=== PATIENT | male | born 1985 | race Caucasian/White ===

== ENCOUNTER → 2020-07-12 09:00 | Outpatient (CLI) | payer OTHER, SELFPAY ==
[2020-07-12 13:17] LABS: ALB/GLOB Ratio 0.9 RATIO (0.9-2.4); AST(SGOT) 23 U/L (15-37); Alanine Aminotransfer ALT/SGPT 36 U/L (16-61); Albumin, Serum 3.8 g/dL (3.2-5.0); Alkaline Phosphatase 101 U/L (45-117); Anion Gap 5 (5-15); BUN 19 mg/dL (7-18); Calcium,Total 8.2 mg/dL (8.5-10.1); Chloride 104 mmol/L (98-107); Cholesterol 214 mg/dL (200); Creatinine, Serum 0.95 mg/dL (0.70-1.30); EST Glomerular Filtration Rate 95 mL/min (>60); Est Glom Filt Rate - Afr Amer 115 mL/min (>60); Follicle Stimulating Hormone 4.4 mIU/mL; Globulin 4.1 g/dL (2.2-4.2); Glucose 128 mg/dL (74-106); High Density Lipoprotein 21 mg/dL; Potassium 3.9 mmol/L (3.5-5.1); Prolactin 7.6 ng/mL; Protein, Total 7.9 g/dL (6.4-8.2); Sodium Level 134 mmol/L (136-145); T4 Free Direct 0.96 ng/dL (0.76-1.46); Thyroid Stim Hormone (TSH) 4.01 uIU/mL (0.358-3.74); Triglycerides 1543 mg/dL
== END ==
PROVIDERS: Visit Provider Nurse Practitioner Family
DX: R79.89 Other specified abnormal findings of blood chemistry (principal); R86.1 Abnormal level of hormones in specimens from male genital organs
CPT/HCPCS: 36415; 80053; 80061; 82627; 83001; 84146; 84270; 84439; 84443; 82626

== ENCOUNTER 2021-05-28 03:29 | Emergency (ER) | payer OTHER, SELFPAY ==
[2021-05-28 03:30] VITALS: BP 153/99; PULSE 104; RESP 19; TEMP 37.4; O2SAT 93; BMI 35.6
[2021-05-28 04:03] VITALS: PULSE 120; RESP 16; RESP 18; O2SAT 95
[2021-05-28] MEDS: Albuterol 2.5 MG/3 ML VIAL.NEB. INHALATION (04:03)
[2021-05-28] MEDS: Ipratropium/Albuterol Sulfate 3 ML AMPUL.NEB INHALATION (04:03)
[2021-05-28] MEDS: predniSONE 20 MG Tablet 60 MG PO (04:09)
--- NOTE | 2021-05-28 04:34 | CPS ---
x1 Albuterol given to pt. in ER as well
--- NOTE | 2021-05-28 04:42 | RAD_ITS ---
STUDY: X-RAY CHEST REASON FOR EXAM: Male, 36 years old. Cough TECHNIQUE: Single AP portable view of the chest. COMPARISON: 01/25/2017 FINDINGS: The lungs are clear and expanded. There is no demonstrated pleural abnormality. Normal size heart. Normal mediastinum and ro. Normal visualized pulmonary arteries. Normal visualized aortic arch and descending thoracic aorta. There is no demonstrated abnormality of the visualized soft tissue structures of the upper abdomen. RAD/Chest 1 View (Portable) IMPRESSION: No acute abnormal cardiopulmonary finding. Electronically Signed: Wilberto Kelley MD at 6:00 EST ,
[2021-05-28] MEDS: Albuterol Sulfate 8 gm Inhaler (60 puffs) 2 PUFF INHALATION (04:44)
[2021-05-28 05:32] VITALS: O2SAT 96
[2021-05-28 06:23] VITALS: BP 108/74; O2SAT 95
--- NOTE | 2021-05-28 06:23 | EDS_ITS ---
HPI History of Present Illness Chief Complaint: Shortness of Breath Narrative Narrative: 36-year-old male presenting with shortness of breath and wheezing. Patient has a history of asthma but states he does not take anything for this regularly. Patient states that he has not felt ill. 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 He has not had a fever, chills, body aches. He does not have nausea or vomiting. He denies chest pain. PFSH PFS Medical History Hypertriglyceridemia Home Medications albuterol sulfate [Ventolin HFA] 1 - 2 puff INHALATION Q4H PRN PRN #1 inhaler 01/25/17 [Rx Last Taken Unknown] duloxetine 60 mg capsule,delayed release capsule PO 08/02/20 [History Last Taken Unknown] lisinopril 5 mg PO DAILY 05/28/21 [History Last Taken Unknown] prednisone 50 mg PO DAILY 5 Days #25 tab 05/28/21 [Rx Last Taken Unknown] Allergy/AdvReac Type Severity Reaction Status Date / Time acetaminophen [From Vicodin] AdvReac Nausea Verified 05/28/21 03:35 hydrocodone bitartrate AdvReac Nausea Verified 05/28/21 03:35 [From Vicodin] Family History Other Diabetes Mixed hyperlipidemia Social History adopted: No household members: spouse and children number of children: 3 current occupational status: employed sexually active: Yes Smoking Status: Never smoker Smokeless tobacco user: other ROS ROS ED Constitutional Constitutional ED: Denies chills or fever(s) ENT ENT ED: Reports rhinorrhea Cardiovascular Cardiovascular: Denies chest pain or palpitations Respiratory/Chest Respiratory/Chest: Reports cough and dyspnea Gastrointestinal Gastrointestinal: Denies abdominal pain or nausea Genitourinary Genitourinary ED: Denies dysuria or hematuria Musculoskeletal Musculoskeletal: Denies myalgias Integumentary Denies Abrasions or rash Neurologic Neurologic: Denies headache(s) or weakness Psychiatric Psychiatric: Denies anxiety or depression EXAM Physical Exam Const Vital Signs: 05/28/21 03:30 05/28/21 03:37 05/28/21 04:03 Temperature 99.4 F H Temperature Source Temporal Pulse Rate 104 H 120 H Respiratory Rate 19 H 18 Respiratory Effort Normal Short of Breath Normal Short of Breath Respiratory Depth Normal Normal Respiratory Pattern Normal Normal Blood Pressure 153/99 H Blood Pressure Mean 117 Pulse Ox 93 95 Oxygen Delivery Method Room Air Room Air 05/28/21 05:32 Temperature Temperature Source Pulse Rate Respiratory Rate Respiratory Effort Respiratory Depth Respiratory Pattern Blood Pressure Blood Pressure Mean Pulse Ox 96 Oxygen Delivery Method Room Air Positive well nourished General Appearance ED: NAD; Negative for pallor HEENT Reports moist mucous membranes atraumatic Eyes PERRL and EOMs intact bilaterally Resp normal respiratory effort and clear to auscultation bilaterally Cardio regular rate and regular rhythm Neuro oriented x3 and CN's II-XII intact bilaterally Sensorium / Orientation: alert Motor Exam: strength 5/5 throughout Psych mental status grossly normal Thought Process: normal thought process Skin General Skin Exam: Negative for jaundice or pallor MDM MDM MDM Narrative Medical decision making narrative: 36-year-old male presenting with asthma exacerbation. He does not have any viral symptoms. I obtained a chest x-ray which on my interpretation shows no acute cardiopulmonary process. Patient given 60 mg of prednisone and breathing treatments and feels very much improved as if he is opened up. His pulse ox was at 93 and is now 95. Patient was given a prednisone burst and a albuterol inhaler. He is to follow-up outpatient with his PCP to ensure resolution. Impression: 1. Asthma exacerbation Radiography Diagnostic Testing: Clinical Impression(s) from Imaging Studies Chest X-Ray 05/28/21 04:42 IMPRESSION: No acute abnormal cardiopulmonary finding. Electronically Signed: Wilberto Kelley MD at 6:00 EST , Discharge Plan Triage Chief Complaint: Shortness of Breath ED Provider: Otto Wisdom Dx/Rx/DC Orders Instructions: ED Asthma, Acute (Adult) Prescriptions: New prednisone 10 mg tablet 50 mg PO DAILY 5 Days Qty: 25 RF: 0 No Action duloxetine 60 mg capsule,delayed release(DR/EC) PO RF: 0 albuterol sulfate [Ventolin HFA] 1 INHALER inhaler 1 - 2 puff inhalation Q4H PRN PRN (Reason: Wheezing) Qty: 1 RF: 0 lisinopril 5 mg Tablet 5 mg PO DAILY RF: 0 Primary Care Provider: Bayron Engel NP Referrals: Bayron Engel NP, [employer] [Primary Care Provider] - Disposition Disposition: Home, Self Care Discharge Date/Time: 05/28/21 06:23
== END 2021-05-28 06:23 | disposition home or self-care (01) ==
PROVIDERS: Emergency Provider Student in an Organized Health Care Education/Training Program; PCP Nurse Practitioner Family; Visit Provider Student in an Organized Health Care Education/Training Program
DX: J45.901 Unspecified asthma with (acute) exacerbation (principal); Z79.899 Other long term (current) drug therapy
CPT/HCPCS: 71045; 94640; 99251; 99283; G0463

== ENCOUNTER 2022-01-25 18:23 | Emergency (ER) | payer OTHER, SELFPAY ==
[2022-01-25 18:24] VITALS: BP 131/100; PULSE 90; RESP 14; TEMP 36.8; O2SAT 95; BMI 33.7
--- NOTE | 2022-01-25 18:34 | EDS_ITS ---
HPI History of Present Illness HPI Narrative: Patient presents with left leg pain that has been getting progressively worse over the last 4 days. Patient states it is constant. Patient describes it as a tightness and throbbing. Patient states it started in the back of his left knee 4 days ago and now it is spread to his lower leg and foot. Patient states nothing makes it better nothing makes it worse. Patient denies any paresthesias or weakness. Patient denies any trauma or injury. Chief Complaint: Lower Extremity Injury Informant: patient Onset/Context/Timing Onset: Days (4) Context: Gradual Onset Timing: Continuous Quality of Pain: Throbbing (And tightness) Location: Left leg Worsened by: Nothing Relieved by: Nothing Associated Symptoms Associated Symptoms: Negative for Parasthesia, Weakness or Loss of Funtion PFSH PFSH Medical History Hypertriglyceridemia Home Medications albuterol sulfate 90 mcg/actuation aerosol inhaler (Ventolin HFA) 1 - 2 puff inhalation Q4H PRN PRN Wheezing ##1 01/25/17 [Rx Last Taken Unknown] duloxetine 60 mg capsule,delayed release capsule PO 08/02/20 [History Last Taken Unknown] lisinopril 5 mg tablet 5 mg PO DAILY 05/28/21 [History Last Taken Unknown] prednisone 10 mg tablet 50 mg PO DAILY 5 days #25 tabs 05/28/21 [Rx Last Taken Unknown] Allergy/AdvReac Type Severity Reaction Status Date / Time acetaminophen [From Vicodin] AdvReac Nausea Verified 01/25/22 18:24 hydrocodone bitartrate AdvReac Nausea Verified 01/25/22 18:24 [From Vicodin] Family History Other Diabetes Mixed hyperlipidemia Social History adopted: No household members: spouse and children number of children: 3 current occupational status: employed sexually active: Yes Smoking Status: Never smoker Smokeless tobacco user: other ROS ROS ED Constitutional Constitutional ED: Denies chills or fever(s) Eyes Eyes: Denies blurry vision or change in vision ENT ENT ED: Denies rhinorrhea or sore throat Cardiovascular Cardiovascular: Denies chest pain or palpitations Respiratory/Chest Respiratory/Chest: Denies cough or dyspnea Gastrointestinal Gastrointestinal: Denies nausea or vomiting Genitourinary Genitourinary ED: Denies dysuria or hematuria Musculoskeletal Musculoskeletal: Denies back pain or neck pain Integumentary Denies abscess or rash Neurologic Neurologic: Denies headache(s) or weakness Allergic/Immunologic Allergic/Immunologic ED: Denies mouth swelling or urticaria EXAM Physical Exam Const Vital Signs: 01/25/22 18:24 Temperature 98.2 F Temperature Source Temporal Pulse Rate 90 Respiratory Rate 14 Blood Pressure 131/100 H Blood Pressure Mean 110 Pulse Ox 95 Oxygen Delivery Method Room Air Positive well nourished and well developed General Appearance ED: well developed and NAD HEENT Reports moist mucous membranes Extremity Extremity Narrative: There is tenderness and mild edema of the left calf. There is no ecchymosis. There is no deformity noted. There are some tenderness in the popliteal fossa. Posterior tibial pulses are equal bilaterally. Sensation was intact to light touch bilaterally in the lower extremities. There is full range of motion of the left lower extremity. Strength is 5/5 bilaterally in the lower extremities. Patient ambulates without difficulty. General Extremety ED: Yes edema; Negative for weight-bearing difficulty General Extremity: edema; Negative for weight-bearing difficulty Neuro oriented x3, CN's II-XII intact bilaterally, moves all extremities and no sensory deficits noted Sensorium / Orientation: alert Motor Exam: strength 5/5 throughout Psych mental status grossly normal Skin no wounds MDM MDM MDM Narrative Medical decision making narrative: Venous duplex of the left lower extremity was obtained. There is no DVT. Patient was advised of his findings. Patient was instructed to keep his leg elevated. Patient was instructed to take Tylenol or ibuprofen as needed for any pain. Patient was instructed to follow-up with his primary care physician in 5 to 7 days. Patient understood and was agreeable with the plan. All questions were answered. Radiography Diagnostic Testing: Clinical Impression(s) from Imaging Studies Venous Duplex 01/25/22 18:48 IMPRESSION: There is no demonstrated deep venous thrombosis. Electronically Signed: Jad Pierson MD at 19:26 EDT , Discharge Plan Triage Chief Complaint: Lower Extremity Injury ED Provider: Ravinder Zaidi Dx/Rx/DC Orders Clinical Impression: Pain in left lower leg Instructions: ED Pain, Acute, Uncertain Cause, ED Muscle Strain, Extremity Prescriptions: No Action duloxetine 60 mg capsule,delayed release(DR/EC) PO albuterol sulfate [Ventolin HFA] 1 INHALER inhaler 1 - 2 puff inhalation Q4H PRN PRN (Reason: Wheezing) Qty: 1 0RF lisinopril 5 mg Tablet 5 mg PO DAILY prednisone 10 mg tablet 50 mg PO DAILY 5 Days Qty: 25 0RF Primary Care Provider: Ivan Saez Referrals: Bayron Engel [employer], [employer] [Non-Staff] - 5-7 Days Disposition Disposition: Home, Self Care
--- NOTE | 2022-01-25 18:48 | US_ITS ---
STUDY: VENOUS DOPPLER ULTRASOUND - LEFT LOWER EXTREMITY REASON FOR EXAM: Male, 36 years old. LEG PAIN AND SWELLING LT CALF PAIN FROM KNEE TO ANKLE TECHNIQUE: Ultrasound evaluation of the deep vein system to include richards-scale imaging and compression was performed. Richards-scale imaging and Doppler sonographic evaluation, including duplex spectral analysis and qualitative color flow sonography, was performed. COMPARISON: None. FINDINGS: Common Femoral Vein: Normal compression, spontaneity and augmentation. Normal color Doppler. Common Femoral Vein/Greater Saphenous Junction: Normal compression, spontaneity and augmentation. Normal color Doppler. Superficial Femoral Proximal: Normal compression, spontaneity and augmentation. Normal color Doppler. Superficial Femoral Middle: Normal compression, spontaneity and augmentation. Normal color Doppler. Superficial Femoral Distal: Normal compression, spontaneity and augmentation. Normal color Doppler. Popliteal Vein: Normal compression, spontaneity and augmentation. Normal color Doppler. Posterior Tibial Vein: Normal compression, spontaneity and augmentation. Normal color Doppler. Peroneal Vein: Normal compression, spontaneity and augmentation. Normal color Doppler. There is no demonstrated deep venous thrombosis. US/Venous Duplex Imag/Limited/Uni IMPRESSION: There is no demonstrated deep venous thrombosis. Electronically Signed: Jad Pierson MD at 19:26 EDT Reading Location ID and State: [facility] / [place] , Service support ,
== END 2022-01-25 20:03 | disposition home or self-care (01) ==
PROVIDERS: Emergency Provider Emergency Medicine; Visit Provider Emergency Medicine
DX: M79.662 Pain in left lower leg (principal)
CPT/HCPCS: 93971; 99282

== ENCOUNTER 2022-05-26 17:38 | Emergency (ER) | payer OTHER, SELFPAY ==
[2022-05-26] VITALS (9 sets, daily range): BP systolic 154–163; BP diastolic 97–101; PULSE 12–117; RESP 11–21; TEMP 36.1; O2SAT 92–95; BMI 35.2
[2022-05-26] MEDS: Albuterol 2.5 MG/3 ML VIAL.NEB. INHALATION ×2 (18:26→20:42)
[2022-05-26] MEDS: Ipratropium/Albuterol Sulfate 3 ML AMPUL.NEB INHALATION ×2 (18:26→20:42)
--- NOTE | 2022-05-26 18:44 | RAD_ITS ---
STUDY: X-RAY CHEST REASON FOR EXAM: Male, 37 years old. Shortness of breath. TECHNIQUE: PA and lateral views of the chest. COMPARISON: May 28, 2021. FINDINGS: The lungs are clear and expanded. There is no demonstrated pleural abnormality. Normal size heart. Normal mediastinum and ro. Normal visualized pulmonary arteries. Normal visualized aortic arch and descending thoracic aorta. Normal visualized thoracic spine. Normal visualized ribs, clavicles, and shoulders. There is no demonstrated abnormality of the visualized soft tissue structures of the upper abdomen. RAD/Chest PA and Lateral IMPRESSION: No acute cardiopulmonary disease or interval change. Electronically Signed: Theo Broderick DO at 19:06 EST ,
--- NOTE | 2022-05-26 18:55 | EKG12_ITS ---
Test Reason : SOB Blood Pressure : / mmHG Vent. Rate : 117 BPM Atrial Rate : 117 BPM P-R Int : 182 ms QRS Dur : 092 ms QT Int : 308 ms P-R-T Axes : 065 070 013 degrees QTc Int : 429 ms Sinus tachycardia T wave abnormality, consider inferior ischemia Abnormal ECG Confirmed by ZANDER KRAMER, BOB ([id number]), electronic news gathering editor KJ STOVER ([id number]) on 05/29/2022 9:25:10 AM Referred By: Confirmed By:BOB FERMIN MD
--- NOTE | 2022-05-26 19:07 | EX.ED.DYSGE1 ---
HPI <AGNIESZKA Sparks - Last Filed: 05/26/22 21:34> History of Present Illness Chief Complaint: Shortness of Breath Narrative Narrative: Patient is a 37-year-old male with history of hypertension, asthma who presents the emergency department with 1 week of shortness of breath. Patient states that it was not getting better, he then went to urgent care and gave him Augmentin. Patient states he been taking it for 2 days and has no relief. Patient has been using his inhaler. Patient denies any fever or chills. Patient states he feels congested in his face as well as having some coughing fits PFSH <AGNIESZKA Sparks - Last Filed: 05/26/22 21:34> [facility] Medical History Hypertriglyceridemia Home Medications albuterol sulfate 90 mcg/actuation aerosol inhaler (Ventolin HFA) 1 - 2 puff inhalation Q4H PRN PRN Wheezing ##1 01/25/17 [Rx Last Taken Unknown] duloxetine 60 mg capsule,delayed release capsule PO 08/02/20 [History Last Taken Unknown] lisinopril 5 mg tablet 5 mg PO DAILY 05/28/21 [History Last Taken Unknown] prednisone 10 mg tablet 50 mg PO DAILY 5 days #25 tabs 05/28/21 [Rx Last Taken Unknown] prednisone 50 mg tablet 50 mg PO DAILY #5 tabs 05/26/22 [Rx Last Taken Unknown] Allergy/AdvReac Type Severity Reaction Status Date / Time acetaminophen [From Vicodin] AdvReac Nausea Verified 05/26/22 17:38 hydrocodone bitartrate AdvReac Nausea Verified 05/26/22 17:38 [From Vicodin] Family History Other Diabetes Mixed hyperlipidemia Social History adopted: No household members: spouse and children number of children: 3 current occupational status: employed sexually active: Yes Smoking Status: Never smoker Smokeless tobacco user: other ROS <AGNIESZKA Sparks - Last Filed: 05/26/22 21:34> ROS ED ROS Narrative Constitutional: Negative for fever, chills, weight loss, weakness Eyes: Negative for vision loss, vision change, double vision ENT: Negative for any sore throat, ear pain, congestion Cardiovascular: Negative for any chest pain. Palpitations tightness Respiratory: Negative for any sputum production, hemoptysis, dyspnea on exertion, orthopnea. Cough, dyspnea Gastrointestinal: Negative for any abdominal pain, nausea, vomiting, diarrhea, constipation, blood in stool, blood in vomit : Negative for any urinary frequency, dysuria, retention, blood in urine Muscle skeletal: Negative for any muscle joint pain, stiffness, myalgias, arthralgias, neck pain, back pain Neurological: Negative for any headache, syncope, numbness or tingling, dizziness Skin: Negative for any rashes, lumps, itching, abrasions, lacerations Psychiatric: Negative for any depression, anxiety, stress, suicidal ideation, homicidal ideation Hematologic: Negative for any easy bruising, excessive bruising, easy bleeding Allergies: Negative for any eczema, hives, rash EXAM <AGNIESZKA Sparks - Last Filed: 05/26/22 21:34> Physical Exam Narrative Exam Narrative: Vital signs reviewed. Patient is tachycardic with a heart rate 120. He is in no obvious respiratory distress. 94 to 95% room air HEET: Head normocephalic atraumatic, TMs clear bilaterally. Posterior pharynx is clear, moist mucous membranes. Nares clear bilaterally. Neck: Supple with no lymphadenopathy or tenderness. No signs of meningismus, negative jolt sign. Cardiac: Tachycardic rate no murmurs gallops or rubs, equal peripheral pulses bilaterally. Respiratory: Lungs clear to auscultation bilaterally. No chest tenderness. Abdomen: Soft, nontender, nondistended. No abdominal bruit or pulsatile masses. No hepatosplenomegaly Extremities: No peripheral edema, no signs of gross trauma or deformity. Active full range of motion of all extremities. Neuro: Cranial nerves II through XII intact, no focal neurological deficits. Skin: Clean dry and intact with no rash, purpura, petechiae, vesicles or pustules. Backs/flank: No CVA tenderness, no midline spinal tenderness, no deformity. Psych: Normal mood and affect. No SI, HI or acute psychosis. Const Vital Signs: 05/26/22 17:39 05/26/22 18:16 05/26/22 18:26 Temperature 96.9 F L Temperature Source Temporal Pulse Rate 114 H 116 H Respiratory Rate 20 H 18 Respiratory Effort Short of Breath Respiratory Depth Normal Respiratory Pattern Normal Blood Pressure 154/98 H Blood Pressure Mean 116 Pulse Ox 92 Oxygen Delivery Method Room Air Room Air 05/26/22 18:45 05/26/22 19:46 05/26/22 19:59 Temperature Temperature Source Pulse Rate 12 L 117 H 114 H Respiratory Rate 19 H 18 11 L Respiratory Effort Respiratory Depth Respiratory Pattern Blood Pressure 163/97 H 162/101 H Blood Pressure Mean 119 110 Pulse Ox 95 95 94 Oxygen Delivery Method Room Air 05/26/22 20:00 05/26/22 20:10 05/26/22 20:20 Temperature Temperature Source Pulse Rate 115 H 117 H 114 H Respiratory Rate 20 H 16 21 H Respiratory Effort Respiratory Depth Respiratory Pattern Blood Pressure Blood Pressure Mean Pulse Ox 93 93 92 Oxygen Delivery Method 05/26/22 20:43 Temperature Temperature Source Pulse Rate 115 H Respiratory Rate 16 Respiratory Effort Respiratory Depth Respiratory Pattern Blood Pressure Blood Pressure Mean Pulse Ox Oxygen Delivery Method <Dr. Cecily Philip MD - Last Filed: 05/26/22 22:09> Physical Exam Const Vital Signs: 05/26/22 17:39 05/26/22 18:16 05/26/22 18:26 Temperature 96.9 F L Temperature Source Temporal Pulse Rate 114 H 116 H Respiratory Rate 20 H 18 Respiratory Effort Short of Breath Respiratory Depth Normal Respiratory Pattern Normal Blood Pressure 154/98 H Blood Pressure Mean 116 Pulse Ox 92 Oxygen Delivery Method Room Air Room Air 05/26/22 18:45 05/26/22 19:46 05/26/22 19:59 Temperature Temperature Source Pulse Rate 12 L 117 H 114 H Respiratory Rate 19 H 18 11 L Respiratory Effort Respiratory Depth Respiratory Pattern Blood Pressure 163/97 H 162/101 H Blood Pressure Mean 119 110 Pulse Ox 95 95 94 Oxygen Delivery Method Room Air 05/26/22 20:00 05/26/22 20:10 05/26/22 20:20 Temperature Temperature Source Pulse Rate 115 H 117 H 114 H Respiratory Rate 20 H 16 21 H Respiratory Effort Respiratory Depth Respiratory Pattern Blood Pressure Blood Pressure Mean Pulse Ox 93 93 92 Oxygen Delivery Method 05/26/22 20:43 Temperature Temperature Source Pulse Rate 115 H Respiratory Rate 16 Respiratory Effort Respiratory Depth Respiratory Pattern Blood Pressure Blood Pressure Mean Pulse Ox Oxygen Delivery Method [facility] <AGNIESZKA Sparks - Last Filed: 05/26/22 21:34> [facility] Lab Data Attestation: I reviewed the patient's lab results. Labs: Laboratory Results - last 24 hr 05/26/22 05/26/22 05/26/22 19:10 19:10 19:10 WBC 13.8 H RBC 5.51 Hgb 15.7 Hct 44.1 MCV 80.0 MCH 28.5 MCHC 35.6 RDW Std Deviation 39.8 RDW Coeff of Jackson 13.6 Plt Count 333 MPV 10.2 Immature Gran % (Auto) 1.200 H Neut % (Auto) 77.2 H Lymph % (Auto) 19.7 Stewart % (Auto) 1.4 Eos % (Auto) 0.1 Baso % (Auto) 0.4 Absolute Neuts (auto) 10.7 H Absolute Lymphs (auto) 2.73 Nucleated RBC % 0 D-Dimer Quant (PE/DVT) 0.53 H* Sodium 135 L Potassium 4.5 Chloride 103 Carbon Dioxide 23.0 Anion Gap 9 BUN 25 H Creatinine 1.15 Estim Creat Clear Calc 86.24 Est GFR (MDRD) Af Amer 91 Est GFR (MDRD) Non-Af 75 BUN/Creatinine Ratio 21.7 H Glucose 218 H Calcium 9.3 Troponin I High Sens 6 TSH 1.17 Radiography Diagnostic Testing: Clinical Impression(s) from Imaging Studies Chest X-Ray 05/26/22 18:44 IMPRESSION: No acute cardiopulmonary disease or interval change. Electronically Signed: Theo Broderick DO at 19:06 EST Reading Location ID and State: [place] / [place] Tel [phone], Service support , Chest CTA 05/26/22 19:33 IMPRESSION: Normal CTA chest examination, without a demonstrated pulmonary embolism or arterial dissection. AIDOC was utilized to assist in identifying pertinent positive findings in this case. Electronically Signed: Theo Broderick DO at 20:18 EST Reading Location ID and State: [place] / [place] Tel [phone], Service support , Treatment and Re-Evaluation Narrative: All radiologic examinations were read, reviewed by the emergency department attending. From these reads, a plan of care will be put in place. Patient appears to be in no respiratory distress. Patient is tachycardic with a heart rate in the 120s, remainder of vital signs are unremarkable. Patient is 93 to 95% on room air. Patient did receive a full respiratory work-up, secondary to the patient's elevated heart rate, family history, patient did receive a D-dimer as well. Patient's chest x-ray showed no acute cardiopulmonary disease. Patient's laboratory values showed a slight elevation in his white blood cells at 13.8, patient's chemistries showed a glucose of 218 which was elevated, patient's TSH within normal limits. Patient's D-dimer was positive. Secondary to the patient's elevated D-dimer, tachycardia, complaints of shortness of breath, I believe it is appropriate to perform a CTA of the chest to rule out any pulmonary embolus. CT of the chest was completed, this showed no acute pulmonary embolism or arterial dissection. There is no evidence of any pneumonia pneumothorax. Patient did receive multiple breathing treatments, he took oral steroids at home. On reassessment, the patient is in no distress. He feels much better. I spoke with the patient regarding his laboratory values as well as hyperglycemia. He will continue to talk to his PCP regarding this, they have been watching this for some time. He will be given 5 days of prednisone, he will continue his antibiotics given to him. He is currently not need any refills on his inhalers. He was given return precaution. I did speak with the patient's who is bedside. They were given discharge instructions. Patient was given return precautions. Stable for discharge. <Dr. Cecily Philip MD - Last Filed: 05/26/22 22:09> [facility] Lab Data Labs: Laboratory Results - last 24 hr 05/26/22 05/26/22 05/26/22 19:10 19:10 19:10 WBC 13.8 H RBC 5.51 Hgb 15.7 Hct 44.1 MCV 80.0 MCH 28.5 MCHC 35.6 RDW Std Deviation 39.8 RDW Coeff of Jackson 13.6 Plt Count 333 MPV 10.2 Immature Gran % (Auto) 1.200 H Neut % (Auto) 77.2 H Lymph % (Auto) 19.7 Stewart % (Auto) 1.4 Eos % (Auto) 0.1 Baso % (Auto) 0.4 Absolute Neuts (auto) 10.7 H Absolute Lymphs (auto) 2.73 Nucleated RBC % 0 D-Dimer Quant (PE/DVT) 0.53 H* Sodium 135 L Potassium 4.5 Chloride 103 Carbon Dioxide 23.0 Anion Gap 9 BUN 25 H Creatinine 1.15 Estim Creat Clear Calc 86.24 Est GFR (MDRD) Af Amer 91 Est GFR (MDRD) Non-Af 75 BUN/Creatinine Ratio 21.7 H Glucose 218 H Calcium 9.3 Troponin I High Sens 6 TSH 1.17 Radiography Diagnostic Testing: Clinical Impression(s) from Imaging Studies Chest X-Ray 05/26/22 18:44 IMPRESSION: No acute cardiopulmonary disease or interval change. Electronically Signed: Theo Broderick DO at 19:06 EST Reading Location ID and State: [place] / [place] Tel [phone], Service support , Chest CTA 05/26/22 19:33 IMPRESSION: Normal CTA chest examination, without a demonstrated pulmonary embolism or arterial dissection. AIDOC was utilized to assist in identifying pertinent positive findings in this case. Electronically Signed: Theo Broderick DO at 20:18 EST Reading Location ID and State: [place] Tel [phone], Service support , Treatment and Re-Evaluation Narrative: All radiologic examinations were read, reviewed by the emergency department attending. From these reads, a plan of care will be put in place. Patient appears to be in no respiratory distress. Patient is tachycardic with a heart rate in the 120s, remainder of vital signs are unremarkable. Patient is 93 to 95% on room air. Patient did receive a full respiratory work-up, secondary to the patient's elevated heart rate, family history, patient did receive a D-dimer as well. Patient's chest x-ray showed no acute cardiopulmonary disease. Patient's laboratory values showed a slight elevation in his white blood cells at 13.8, patient's chemistries showed a glucose of 218 which was elevated, patient's TSH within normal limits. Patient's D-dimer was positive. Secondary to the patient's elevated D-dimer, tachycardia, complaints of shortness of breath, I believe it is appropriate to perform a CTA of the chest to rule out any pulmonary embolus. CT of the chest was completed, this showed no acute pulmonary embolism or arterial dissection. There is no evidence of any pneumonia pneumothorax. Patient did receive multiple breathing treatments, he took oral steroids at home. On reassessment, the patient is in no distress. He feels much better. I spoke with the patient regarding his laboratory values as well as hyperglycemia. He will continue to talk to his PCP regarding this, they have been watching this for some time. He will be given 5 days of prednisone, he will continue his antibiotics given to him. He is currently not need any refills on his inhalers. He was given return precaution. I did speak with the patient's who is bedside. They were given discharge instructions. Patient was given return precautions. Stable for discharge. Patient seen and evaluated with [facility]. I personally interviewed and examined the patient. I was involved in all aspects of patient's orders, interpretation of results, and treatment. Patient presents with cold symptoms and shortness of breath. He has a history of asthma. He states couple days ago he developed what he thought was more of a sinus infection and congestion. He was seen at urgent care 2 days ago and given a prescription for Augmentin. He states he feels that the illness is now settled down into his chest with increased cough and congestion. He intermittently feels like he has wheezing. He has been using his inhaler at home without improvement. Patient sitting upright in bed no acute distress. Speaking full sentences. Head neck examination unremarkable. Heart is tachycardic but regular. Lung sounds are grossly clear with decreased air movement. Abdomen is soft and nontender. Lower extremity semination shows no calf tenderness or edema. Chest x-ray initially obtained and patient treated with aerosols. Chest x-ray per my interpretation reveals no infiltrate or acute abnormality. Patient continued to have tachycardia. In light of this EKG was obtained along with lab work to include D-dimer to rule out PE. CBC reveals a white count of 13.8 with 77% neutrophils. Chemistry studies are unremarkable. Troponin is normal and TSH is normal. D-dimer was slightly elevated at 0.53. CTA of the chest is obtained and reveals no evidence of PE or other acute abnormality. At this time patient's heart rate is around 110. He does feel improved. He will be given additional steroids and he has MDI inhaler to use at home. Return instructions given. Discharge Plan Triage Chief Complaint: Shortness of Breath ED Midlevel Provider: Wilberto Uriostegui ED Provider: Cecily Philip Dx/Rx/DC Orders Clinical Impression: Asthma exacerbation, Upper respiratory tract infection, Hyperglycemia Instructions: ED Asthma, Acute (Adult) Prescriptions: New prednisone 50 mg tablet 50 mg PO DAILY Qty: 5 0RF No Action duloxetine 60 mg capsule,delayed release(DR/EC) PO albuterol sulfate [Ventolin HFA] 1 INHALER inhaler 1 - 2 puff inhalation Q4H PRN PRN (Reason: Wheezing) Qty: 1 0RF lisinopril 5 mg Tablet 5 mg PO DAILY prednisone 10 mg tablet 50 mg PO DAILY 5 Days Qty: 25 0RF Primary Care Provider: Ivan Saez Referrals: Ivan Saez [Primary Care Provider] - Disposition Disposition: Home, Self Care Discharge Date/Time: 05/26/22 21:42
[2022-05-26 19:16] LABS: Absolute Lymphocyte Count 2.73 X10^3/uL (0.83-4.51); Absolute Neutrophil Count 10.7 X10^3/uL (2.0-7.7); Basophil# 0.06 X10^3/uL; Basophil% 0.4 % (0-1); Eosinophil# 0.02 X10^3/uL; Eosinophils% 0.1 % (0-5); Hematocrit 44.1 % (40-54); Hemoglobin 15.7 g/dL (13.0-16.5); Lymphocyte # 2.73 X10^3/ul (0.83-4.51); Lymphocyte % 19.7 % (19-41); Mean Corp Hgb Conc 35.6 g/dL (32-36); Mean Corpuscular Hgb 28.5 pg (27.0-32.0); Mean Platelet Vol. 10.2 fl (6.2-12.0); Monocyte# 0.19 X10^3/uL; Monocyte% 1.4 % (0-10); NRBC Flagged by Analyzer 0 % (0-5); Neutrophil # 10.67 X10^3/uL (2.7-7.7); Neutrophil % 77.2 % (47-70); Platelet Count 333 K/mm3 (150-450); RBC Distribution Width CV 13.6 % (11.6-14.6); RBC Distribution Width SD 39.8 fl (35.1-43.9); Red Blood Count 5.51 M/mm3 (4.6-6.2); White Blood Count 13.8 K/mm3 (4.4-11.0)
[2022-05-26 19:33] LABS: D-Dimer Quantitative (DVT/PE) 0.53 FEU/ug/m (0.27-0.49)
--- NOTE | 2022-05-26 19:33 | CT_ITS ---
STUDY: CTA CHEST REASON FOR EXAM: Male, 37 years old. Elevated d-dimer. Shortness of breath for one week with cold symptoms. History of asthma. RADIATION DOSAGE (If Supplied By Facility): CTDIvol = ( 18.52 ) mGy, DLP = ( 560.28 ) mGycm TECHNIQUE: The examination was performed with the intravenous administration of IV 100mL Isovue-370. Post-processing of the angiographic images was performed, with multiplanar reformation and 3D reconstruction. Individualized dose optimization techniques were used for this CT. COMPARISON: Chest, May 26, 2022. FINDINGS: Normal enhancement of the main pulmonary artery and right and left pulmonary arteries. Normal enhancement of the bilateral peripheral pulmonary arteries. There is no demonstrated pulmonary embolism. Normal thoracic aorta and visualized great vessels. There is no demonstrated aortic dissection. Normal heart and pericardium. Normal mediastinum. Normal hilar regions. Normal visualized trachea and bronchi. The lungs are well expanded. Normal pulmonary parenchyma. Normal pleura. Normal chest wall structures. Normal osseous structures. Normal visualized upper abdomen. CT/CTA Chest W/WO Contrast IMPRESSION: Normal CTA chest examination, without a demonstrated pulmonary embolism or arterial dissection. AIDOC was utilized to assist in identifying pertinent positive findings in this case. Electronically Signed: Theo Broderick DO at 20:18 EST ,
[2022-05-26] MEDS: 0.9% Normal Saline 1,000 ML 150 ML IV (20:27)
[2022-05-26 21:21] LABS: Anion Gap 9 (5-15); BUN 25 mg/dL (7-18); BUN/Creat Ratio 21.7 RATIO (10-20); Calcium,Total 9.3 mg/dL (8.5-10.1); Chloride 103 mmol/L (98-107); Creatinine, Serum 1.15 mg/dL (0.70-1.30); EST Glomerular Filtration Rate 75 mL/min (>60); Est Glom Filt Rate - Afr Amer 91 mL/min (>60); Estimated Creatinine Clearance 86.24 ml/min; Glucose 218 mg/dL (74-106); Potassium 4.5 mmol/L (3.5-5.1); Sodium Level 135 mmol/L (136-145); Thyroid Stim Hormone (TSH) 1.17 uIU/mL (0.358-3.74); Troponin-I HS 6 pg/mL (3.0-78.0)
== END 2022-05-26 21:42 | disposition home or self-care (01) ==
LOC: ED 18:38
PROVIDERS: Emergency Provider Emergency Medicine; Visit Provider Emergency Medicine
DX: J45.901 Unspecified asthma with (acute) exacerbation (principal); J06.9 Acute upper respiratory infection, unspecified; R73.9 Hyperglycemia, unspecified
CPT/HCPCS: 71046; 71275; 80048; 84443; 84484; 85025; 85379; 87428; 93005; 94640; 99284; J7030; Q9967; A4216

== ENCOUNTER 2022-07-03 04:34 | Emergency (ER) | payer OTHER, SELFPAY ==
[2022-07-03 04:36] VITALS: BP 165/101; PULSE 84; RESP 16; TEMP 36.1; O2SAT 96; BMI 36.1
--- NOTE | 2022-07-03 04:57 | EDS_ITS ---
HPI HPI - URI History of Present Illness Chief Complaint: Sore Throat Narrative Narrative: 37-year-old male past medical history of hypertension, has had 3 to 4 days of sore throat. He went to urgent care yesterday, and was diagnosed with strep throat and placed on amoxicillin. This is the first time that he has had strep throat but states that his kids have had it multiple times. He awoke this evening feeling like he could not breathe and had throat fullness. He describes throat pain when he swallows. No recent fevers, but he is taking ibuprofen for the pain. He presents for evaluation of his strep throat. ROS ROS ED ROS Narrative Constitutional: No fever, no chills. HEENT: Positive sore throat. Throat feels yates than normal. Positive pain wi th swallowing. No neck pain. No loss of vision. No rhinorrhea. Cardiovascular: No chest pain. No palpitations. No pedal edema. Respiratory: No cough, positive shortness of breath. Abdominal: No abdominal pain. No nausea. No vomiting. Genitourinary: No dysuria. No hematuria. Musculoskeletal: No myalgias. No arthralgias. Neurologic: No headaches. No dizziness. No lightheadedness. Skin: No rash. No change in color. Psychiatric: No depression. No anxiety. PFSH [facility] Medical History Hypertriglyceridemia Home Medications albuterol sulfate 90 mcg/actuation aerosol inhaler (Ventolin HFA) 1 - 2 puff inhalation Q4H PRN PRN Wheezing ##1 01/25/17 [Rx Last Taken Unknown] duloxetine 60 mg capsule,delayed release 60 capsule PO DAILY 08/02/20 [History Last Taken Unknown] lisinopril 5 mg tablet 10 mg PO DAILY 05/28/21 [History Last Taken Unknown] amoxicillin 500 mg tablet 500 mg PO BID 07/03/22 [History Last Taken Unknown] dexamethasone 4 mg tablet 4 mg PO DAILY #5 tabs 07/03/22 [Rx Last Taken Unknown] Allergy/AdvReac Type Severity Reaction Status Date / Time acetaminophen [From Vicodin] AdvReac Nausea Verified 07/03/22 04:35 hydrocodone bitartrate AdvReac Nausea Verified 07/03/22 04:35 [From Vicodin] Family History Other Diabetes Mixed hyperlipidemia Social History adopted: No household members: spouse and children number of children: 3 current occupational status: employed sexually active: Yes Smoking Status: Never smoker Smokeless tobacco user: other EXAM Physical Exam Narrative Exam Narrative: Afebrile. Vital signs noted. HEENT: Normocephalic. Atraumatic. PERRL, EOMI. Neck soft and supple. No point tenderness or step off. No meningismus. No drooling or trismus. Airway patent. Mild pharyngeal erythema with tonsillar swelling, but tonsils not kissing. No uvular shift. No Jacob angina. Cardiovascular: Regular rate and rhythm. No murmurs, rubs, or gallops appreciated. Respiratory: No tachypnea. Lungs clear to auscultation bilaterally. Gastrointestinal: Abdomen soft, nontender, with normoactive bowel sounds. No rebound or guarding. Neurological: Awake. Alert. Nonfocal, nonlateralizing. Skin: No rash. Normal color. No pallor. Musculoskeletal: No pedal edema. Full range of motion extremities. Const Vital Signs: 07/03/22 04:36 Temperature 96.9 F L Temperature Source Temporal Pulse Rate 84 Respiratory Rate 16 Blood Pressure 165/101 H Blood Pressure Mean 122 Pulse Ox 96 Oxygen Delivery Method Room Air MDM MDM MDM Narrative Medical decision making narrative: Patient's pulse ox is 96% on room air. I am not concerned for retropharyngeal abscess. Currently, I do not feel that any laboratory work is indicated or CT imaging as I do not think that it would change the disposition. He is to continue his amoxicillin. He was given 8 mg of Decadron here in the emergency department, and a prescription written for short burst of 4 mg of Decadron for the next 5 days. I feel he can be discharged safely home with follow-up. He is still able to eat and drink. He will start a soft food diet and drink plenty of oral fluids. I am not concerned for dehydration currently. Return instructions to the emergency department were reviewed. Follow-up with primary care. He was also referred to ENT as needed. Disposition is discharged home in stable condition. I do not feel that he requires observation currently either. Pa tient and are agreeable to the plan. History & Record Review Discussion w/independent historian: Patient and Family Additional record(s) reviewed:: Prior ED visit Discharge Plan Triage Chief Complaint: Sore Throat ED Provider: Sergey Hernadez Dx/Rx/DC Orders Clinical Impression: Strep throat, Odynophagia Instructions: ED Soft Diet, ED Pharyngitis, Strep (Confirmed) Prescriptions: New dexamethasone 4 mg tablet 4 mg PO DAILY Qty: 5 0RF No Action duloxetine 60 mg capsule,delayed release(DR/EC) 60 capsule PO DAILY albuterol sulfate [Ventolin HFA] 1 INHALER inhaler 1 - 2 puff inhalation Q4H PRN PRN (Reason: Wheezing) Qty: 1 0RF lisinopril 5 mg Tablet 10 mg PO DAILY amoxicillin 500 mg tablet 500 mg PO BID Primary Care Provider: Ivan Saez Referrals: Jerry Hines MD [Med Staff - Active Staff] - As Needed Ivan Saez [Primary Care Provider] - 1-2 Days if not improving Disposition Disposition: Home, Self Care
[2022-07-03] MEDS: dexAMETHasone 4 MG Tablet 8 MG PO (05:02)
[2022-07-03 05:03] VITALS: O2SAT 98
== END 2022-07-03 05:03 | disposition home or self-care (01) ==
LOC: ED 05:00
PROVIDERS: Emergency Provider Emergency Medicine; PCP Family Medicine; Visit Provider Emergency Medicine
DX: J02.0 Streptococcal pharyngitis (principal); I10 Essential (primary) hypertension; Z79.899 Other long term (current) drug therapy
CPT/HCPCS: 99283

== ENCOUNTER 2023-01-04 20:40 | Emergency (ER) | payer OTHER, SELFPAY ==
[2023-01-04 20:42] VITALS: BP 157/110; PULSE 107; RESP 18; TEMP 36.6; O2SAT 99; BMI 36.8
--- NOTE | 2023-01-04 20:58 | EX.ED.VIS.HA ---
HPI History of Present Illness Chief Complaint: Headache Detail of Chief Complaint: Headache Informant: patient and spouse/S.O. Narrative Narrative: Patient presents to the emergency room with complaint of a headache that started a week ago. Patient states that he was on vacation in [place] and when he got back he noticed pain in his head and soreness and stiffness in his neck and upper back. He went to the chiropractor and was treated in the neck and back actually feel better. He describes pain in the back of his head mostly on the left side, radiating to the front. He denies photophobia. He denies nausea or vomiting with it. He has been taking ibuprofen and that seems to help it but then it comes right back. Patient also states that has been more short of breath since he has been back as he owns his own business and with activity he gets more winded than he would expect. He denies any chest pain. No history of PE or DVT. No family history of brain tumors or aneurysms. [facility] Medical History Hypertriglyceridemia Home Medications duloxetine 60 mg capsule,delayed release 60 capsule PO DAILY 08/02/20 [History Last Taken Unknown] lisinopril 5 mg tablet 10 mg PO DAILY 05/28/21 [History Last Taken Unknown] Allergy/AdvReac Type Severity Reaction Status Date / Time acetaminophen [From Vicodin] AdvReac Nausea Verified 01/04/23 20:41 hydrocodone bitartrate AdvReac Nausea Verified 01/04/23 20:41 [From Vicodin] Family History Other Diabetes Mixed hyperlipidemia Social History adopted: No household members: spouse and children number of children: 3 current occupational status: employed sexually active: Yes Smoking Status: Never smoker Smokeless tobacco user: other ROS ROS ED Review of Systems ROS Unobtainable: other Constitutional Constitutional ED: Reports lethargy; Denies chills, fever(s), sweats or weight loss Eyes Eyes: Denies blurry vision, change in vision or diplopia ENT ENT ED: Denies rhinorrhea or sore throat Cardiovascular Cardiovascular: Denies chest pain, orthopnea or racing heartbeat Respiratory/Chest Respiratory/Chest: Reports dyspnea and dyspnea on exertion; Denies cough, orthopnea or sputum Gastrointestinal Gastrointestinal: Denies abdominal pain, diarrhea, nausea or vomiting Genitourinary Genitourinary ED: Denies dysuria, hematuria or urinary frequency Musculoskeletal Musculoskeletal: Denies arthralgias, back pain, myalgias or neck pain Integumentary Denies abscess, Abrasions or rash Neurologic Neurologic: Reports headache(s); Denies weakness Psychiatric Psychiatric: Denies anxiety, depression or suicidal thoughts Endocrine Endocrinology: Denies polydipsia, polyphagia or polyuria Hematologic/Lymphatic Hematologic/Lymphatic: Denies easy bleeding, easy bruising or lymphadenopathy Allergic/Immunologic Allergic/Immunologic ED: Denies mouth swelling, tongue swelling or urticaria EXAM Physical Exam Const Vital Signs: 01/04/23 20:42 01/04/23 22:41 01/04/23 23:22 Temperature 97.8 F Temperature Source Temporal Pulse Rate 107 H 101 H 101 H Respiratory Rate 18 16 16 Blood Pressure 157/110 H 125/84 H 123/62 H Blood Pressure Mean 125 97 82 Pulse Ox 99 97 97 Oxygen Delivery Method Room Air Positive well nourished and well developed General Appearance ED: well developed and NAD HEENT Reports TM's clear and moist mucous membranes normocephalic and atraumatic; Negative for trauma or tenderness Tympanic Membrane ED: Yes TM's clear Eyes PERRL and EOMs intact bilaterally General Eye ED: Negative for pale conjunctiva or scleral icterus Neck no lymphadenopathy, supple and no JVD General: Negative for tenderness Chest Wall inspection of chest normal and palpation of chest normal Chest: Negative for tenderness Resp normal respiratory effort and clear to auscultation bilaterally Effort and Inspection: Negative for respiratory distress or pain with movement Auscultation: Negative for rhonchi, wheezes or diminished lung sounds Cardio regular rate, regular rhythm, S1 normal heart sound, S2 normal heart sound and no murmurs Peripheral Pulses: pulses 2+ throughout GI normal to inspection, nondistended, normoactive bowel sounds, soft to palpation, non-tender, non-distended and no masses Back/Spine no CVA tenderness and no thoracic nor lumbar tenderness Extremity normal to inspection General Extremety ED: Negative for edema General Extremity: Negative for edema Neuro oriented x3, CN's II-XII intact bilaterally, no sensory deficits noted and gait normal Sensorium / Orientation: awake, alert, oriented to person, oriented to place and oriented to time Motor Exam: strength 5/5 throughout and strength abnormal Psych mental status grossly normal Skin no rashes or lesions noted and no wounds MDM MDM MDM Narrative Medical decision making narrative: Patient presents with ongoing headache as left-sided for about a week which is atypical and unusual for him. He has had no history of trauma. Patient also complaining of dyspnea after recent travel to [place] and concern for PE. Patient had an IV line established. He had a CTA of the head and neck that was normal without evidence of aneurysm or intracranial hemorrhage. Patient also had a CTA of the chest which was negative for PE or any acute abnormality. Initially attempted to perform D-dimer however lab was unable to run the D-dimer due to the light hemic nature of the blood. CBC with differential showed a white of 10.2 with hemoglobin 15 and platelet count of 313. Chemistries unremarkable. Glucose elevated 195. Patient was medicated with Reglan, Benadryl, Toradol, and a liter normal same fluid bolus and his headache completely resolved. This point he will be discharged to home suspect possibly migraine as the etiology versus tension headache. Advised to follow-up with primary care physician 3 to 5 days. Etiology of dyspnea unclear. He did have a negative COVID and flu test here. Lab Data Attestation: I reviewed the patient's lab results. Labs: Laboratory Results - last 24 hr 01/04/23 21:05 WBC 10.2 RBC 5.05 Hgb 15.0 Hct 41.6 MCV 82.4 MCH 29.7 MCHC 36.1 H RDW Std Deviation 41.1 RDW Coeff of Jackson 14.0 Plt Count 313 MPV 10.7 Immature Gran % (Auto) 0.800 Neut % (Auto) 49.1 Lymph % (Auto) 39.8 Garden % (Auto) 6.3 Eos % (Auto) 3.3 Baso % (Auto) 0.7 Absolute Neuts (auto) 5.0 Absolute Lymphs (auto) 4.05 Nucleated RBC % 0.2 D-Dimer Quant (PE/DVT) Cancelled Sodium 134 L Potassium 4.6 Chloride 101 Carbon Dioxide 29.0 Anion Gap 4 L BUN 24 H Creatinine 1.22 Estim Creat Clear Calc 81.29 Est GFR (MDRD) Af Amer 85 Est GFR (MDRD) Non-Af 70 BUN/Creatinine Ratio 19.7 Glucose 195 H Calcium 9.6 Radiography Diagnostic Testing: Clinical Impression(s) from Imaging Studies Chest CTA 01/04/23 22:12 IMPRESSION: No evidence of a pulmonary embolism and no evidence of cardiopulmonary disease. Electronically Signed: Toby Be DO at 23:16 EDT , Head/Neck CTA 01/04/23 22:12 IMPRESSION: 1. No acute intracranial abnormality. 2. No evidence of intracranial arterial flow limiting stenosis, large vessel occlusion or aneurysm. 3. No evidence of flow-limiting stenosis or dissection of the bilateral carotid or vertebral arteries. Electronically Signed: Toby Be DO at 23:08 EDT , Discharge Plan Triage Chief Complaint: Headache ED Provider: Chuck Graf Dx/Rx/DC Orders Clinical Impression: Dyspnea, Headache Instructions: ED Dyspnea, ED Headache Unspecified Prescriptions: No Action duloxetine 60 mg capsule,delayed release(DR/EC) 60 capsule PO DAILY lisinopril 5 mg Tablet 10 mg PO DAILY Primary Care Provider: Ivan Saez Referrals: Ivan Saez MD [Primary Care Provider] - 3-5 Days Disposition Disposition: Home, Self Care Discharge Date/Time: 01/04/23 23:25
[2023-01-04] MEDS: Ketorolac 30 MG/ML Syringe IV (21:16)
[2023-01-04] MEDS: DiphenhydrAMINE 50 MG/ML Syringe 25 MG IV (21:17)
[2023-01-04] MEDS: 0.9% Normal Saline (1000mL) 1,000 ML 1000 ML IV (21:17)
[2023-01-04] MEDS: Metoclopramide 10 MG/2 ML Vial IV (21:17)
[2023-01-04 21:18] LABS: Absolute Lymphocyte Count 4.05 X10^3/uL (0.83-4.51); Basophil# 0.07 X10^3/uL; Basophil% 0.7 % (0-1); Eosinophil# 0.34 X10^3/uL; Eosinophils% 3.3 % (0-5); Hematocrit 41.6 % (40-54); Lymphocyte # 4.05 X10^3/ul (0.83-4.51); Lymphocyte % 39.8 % (19-41); Mean Corpuscular Volume 82.4 fL (80-94); Mean Platelet Vol. 10.7 fl (6.2-12.0); Monocyte# 0.64 X10^3/uL; Monocyte% 6.3 % (0-10); NRBC Flagged by Analyzer 0.2 % (0-5); Neutrophil # 4.99 X10^3/uL (2.7-7.7); Neutrophil % 49.1 % (47-70); POSITIVE COUNT YES; Platelet Count 313 K/mm3 (150-450); RBC Distribution Width SD 41.1 fl (35.1-43.9); Red Blood Count 5.05 M/mm3 (4.6-6.2); White Blood Count 10.2 K/mm3 (4.4-11.0)
[2023-01-04 21:59] LABS: Mean Corpuscular Hgb 29.7 pg (27.0-32.0)
[2023-01-04 22:00] LABS: Mean Corp Hgb Conc 36.1 g/dL (32-36)
--- NOTE | 2023-01-04 22:12 | CT_ITS ---
INDICATION: headache EXAMINATION: CT HEAD AND NECK WITH CONTRAST - CTA Head and Neck W/ Contrast Injection (and W/O Contrast Images if performed) TECHNIQUE: Noncontrast axial images were obtained of the brain. Subsequently, routine carotid CT angiogram protocol was performed with IV contrast. In addition, images were obtained of the [place]. Sagittal and coronal reconstructed images and 3D reconstructions were reviewed. Individualized dose optimization techniques were used for this CT. IV contrast dosage and agent: 100 mL of Isovue-370. COMPARISON: 09/03/[address] of the head. FINDINGS: --CT BRAIN: BRAIN PARENCHYMA: No evidence of an acute infarct. No evidence of a mass. CSF SPACES: The ventricles, sulci and subarachnoid cisterns are appropriate for age. CALVARIUM, SKULL BASE, PARANASAL SINUSES AND MASTOID AIR CELLS: No fracture. Mucosal thickening of the maxillary and ethmoid sinuses. ORBITS: The globes, extraocular muscles, optic nerves and retrobulbar fat are unremarkable. --CTA HEAD: No evidence of arterial flow limiting stenosis. No evidence of large vessel occlusion. No aneurysm. [place] anatomy is unremarkable. --CTA NECK: AORTIC ARCH AND BRANCHES: No significant stenosis of the visualized portions. RIGHT CCA: No significant stenosis. No dissection. RIGHT ICA: No significant stenosis. No dissection. LEFT CCA: No significant stenosis. No dissection. LEFT ICA: No significant stenosis. No dissection. RIGHT VERTEBRAL ARTERY: No significant stenosis. No dissection. LEFT VERTEBRAL ARTERY: No significant stenosis. No dissection. NECK SOFT TISSUES: Unremarkable. CT/CTA Head AND Neck W/ Contrast IMPRESSION: 1. No acute intracranial abnormality. 2. No evidence of intracranial arterial flow limiting stenosis, large vessel occlusion or aneurysm. 3. No evidence of flow-limiting stenosis or dissection of the bilateral carotid or vertebral arteries. Electronically Signed: Toby Be DO at 23:08 EDT ,
--- NOTE | 2023-01-04 22:12 | CT_ITS ---
INDICATION: dyspnea EXAMINATION: CT CHEST WITH CONTRAST - CTA Chest WO/W Contrast Injection TECHNIQUE: Helically acquired images were obtained of the chest following IV contrast timed in the pulmonary arterial phase with sagittal and coronal reconstructed images. Post-processing of the angiographic images was performed with multiplanar reformation and 3D reconstruction. Individualized dose optimization techniques were used for this CT. IV contrast dosage and agent: 100 mL of Isovue-370. COMPARISON: None. FINDINGS: LUNGS, PLEURA AND LARGE AIRWAYS: No consolidation or edema. Bilateral perifissural nodules with no follow-up recommended. No pleural effusion. No pneumothorax. THYROID: Unremarkable. HEART AND PERICARDIUM: No evidence of coronary artery calcification. No pericardial effusion. No evidence of right heart strain. Right ventricle to left ventricle ratio measures less than 1. MEDIASTINUM AND LINDSAY: No mediastinal or hilar adenopathy. Esophagus is unremarkable. No hiatal hernia. VESSELS: No pulmonary embolism. No thoracic aortic aneurysm. UPPER ABDOMEN: Calcification in the anterior right lobe of the liver with no evidence of an associated mass. BONES: No acute abnormality. CT/CTA Chest W/WO Contrast IMPRESSION: No evidence of a pulmonary embolism and no evidence of cardiopulmonary disease. Electronically Signed: Toby Be DO at 23:16 EDT ,
[2023-01-04 22:13] LABS: Anion Gap 4 (5-15); BUN 24 mg/dL (7-18); BUN/Creat Ratio 19.7 RATIO (10-20); Calcium,Total 9.6 mg/dL (8.5-10.1); Chloride 101 mmol/L (98-107); Creatinine, Serum 1.22 mg/dL (0.70-1.30); EST Glomerular Filtration Rate 70 mL/min (>60); Est Glom Filt Rate - Afr Amer 85 mL/min (>60); Estimated Creatinine Clearance 81.29 ml/min; Glucose 195 mg/dL (74-106); Potassium 4.6 mmol/L (3.5-5.1); Sodium Level 134 mmol/L (136-145)
[2023-01-04 22:41] VITALS: BP 125/84; PULSE 101; RESP 16; O2SAT 97
[2023-01-04 23:22] VITALS: BP 123/62; PULSE 101; RESP 16; O2SAT 97
== END 2023-01-04 23:25 | disposition home or self-care (01) ==
PROVIDERS: Emergency Provider Emergency Medicine; PCP Family Medicine; Visit Provider Emergency Medicine
DX: R06.00 Dyspnea, unspecified (principal); R51.9 Headache, unspecified; I10 Essential (primary) hypertension; Z79.899 Other long term (current) drug therapy
CPT/HCPCS: 70496; 70498; 71275; 80048; 85025; 87428; 96374; 96375; 99283; J7030; Q9967; A4216

== ENCOUNTER 2023-05-20 20:54 | Emergency (ER) | payer OTHER, SELFPAY ==
[2023-05-20 20:55] VITALS: BP 171/92; PULSE 103; RESP 18; TEMP 37.3; O2SAT 95; BMI 37.6
[2023-05-20 21:56] VITALS: PULSE 121; RESP 20
[2023-05-20] MEDS: Ipratropium/Albuterol Sulfate 3 ML AMPUL.NEB INHALATION (21:56)
[2023-05-20] MEDS: Albuterol 2.5 MG/3 ML VIAL.NEB. INHALATION (21:56)
--- OUTSIDE RECORDS SUMMARY | 2023-05-20 21:56 | XMS RPT_ITS | CCD ---
Author Name Unknown Address [address] [facility] [address] [place] [address] Organization [facility] Care Team Providers Care Planer Stone Name Role Phone Maren LEMUSN.LIME KILN TENDER, DNP, Bayron Primary Care Provider Lupe Saez MD Primary Care Provider Lupe Saez MD Primary Care Provider Lupe Saez MD Primary Care Provider LUPE SAEZ Primary Care Unavailable LUPE SAEZ Referring Unavailable BETY, LUPE Primary Care Unavailable LUPE SAEZ Attending Unavailable BETY, LUPE Primary Care Unavailable BETY, ULPE Primary Care Unavailable LUPE SAEZ Attending Unavailable BETY, LUPE Primary Care Unavailable BETY, LUPE Primary Care Unavailable LUPE SAEZ Attending Unavailable BETY, LUPE Primary Care Unavailable BETY, LUPE Primary Care Unavailable LUPE SAEZ Referring Unavailable BETY, LUPE Primary Care Unavailable BETY, LUPE Primary Care Unavailable BETY, LUPE Attending Unavailable Allergies Allergy Classification Reported Allergen(s) Allergy Type Date of Onset Reaction(s) Facility (17 sources) Dust; Translations: [DUST] Propensity to adverse reactions 04-30-2005 Itching [facility] (17 sources) Grass pollen; Translations: [GRASS POLLEN] Propensity to adverse reactions 04-30-2005 Itching [facility] (17 sources) House dust mite; Translations: [DUST MITES] Propensity to adverse reactions 04-30-2005 Itching [facility] (17 sources) Animal Dander; Translations: [ANIMAL DANDER] Propensity to adverse reactions 04-30-2005 Itching [facility] Medications Current Medications Medication Drug Class(es) Dates Sig (Normalized) Sig (Original) atorvastatin 20 mg oral tablet (1 source) HMG-CoA Reductase Inhibitor Start: 04-05-2023 End: 04-04-2024 take 1 tablet by mouth once daily at bedtime for hyperlipidemia atorvastatin (LIPITOR) 20 mg tablet Indications: Hypertriglyceridemia , Mixed hyperlipidemia Take 1 tablet by mouth daily at bedtime. For cholesterol. 90 tablet 3 04/05/2023 04/04/2024 Active Completed/Discontinued Medications Medication Drug Class(es) Dates Sig (Normalized) Sig (Original) [id number] 200 actuat albuterol 0.09 mg/actuat metered dose inhaler (1 source) beta2-Adrenergic Agonist Start: 05-14-2023 take 2 puff(s) by inhalation every four hours as needed for wheezing albuterol HFA (VENTOLIN HFA) 90 mcg/actuation inhaler Indications: Wheezing Inhale 2 Puffs as instructed every 4 hours as needed for wheezing/shortnes s of breath. 1 Each 5 05/14/2023 Active Problems Active Problems Problem Classification Problem Date Documented Date Episodic/Chronic Anxiety disorders (20 sources) Mixed anxiety and depressive disorder; Translations: [Anxiety disorder, unspecified] Onset: 02-28-2017 02-28-2017 Chronic Asthma (5 sources) Exacerbation of asthma; Translations: [Unspecified asthma with (acute) exacerbation] Onset: 02-18-2023 02-18-2023 Chronic Diabetes mellitus without complication (12 sources) Hyperglycemia; Translations: [Hyperglycemia, unspecified] Onset: 01-17-2023 Episodic Disorders of lipid metabolism (20 sources) Hypertriglyceridemia ; Translations: [Pure hyperglyceridemia] Onset: 05-22-2017 05-22-2017 Chronic Essential hypertension (20 sources) Essential hypertension; Translations: [Essential (primary) hypertension] Onset: 01-04-2021 Chronic Other connective tissue disease (1 source) Pain in left lower limb; Translations: [Pain in left leg] Episodic Other connective tissue disease (1 source) Cramp in lower limb; Translations: [Cramp and spasm] 05-14-2023 Episodic Other connective tissue disease (1 source) Cramp and spasm; Translations: [Leg cramp] Onset: 05-14-2023 Episodic Other lower respiratory disease (1 source) Wheezing; Translations: [Wheezing] 05-14-2023 Episodic Other lower respiratory disease (1 source) Wheezing; Translations: [Wheezing] Onset: 05-14-2023 Episodic Other nutritional; endocrine; and metabolic disorders (18 sources) Metabolic syndrome X; Translations: [Metabolic syndrome] Onset: 12-15-2020 12-15-2020 Chronic Other nutritional; endocrine; and metabolic disorders (16 sources) Obese class I; Translations: [Obesity, unspecified] Onset: 12-28-2020 12-28-2020 Chronic Other nutritional; endocrine; and metabolic disorders (1 source) Metabolic syndrome; Translations: [Metabolic syndrome] Onset: 12-15-2020 Chronic Other upper respiratory disease (1 source) Chronic rhinitis; Translations: [Unspecified sinusitis (chronic)] Chronic Other upper respiratory infections (1 source) Chronic sinusitis, unspecified; Translations: [Unspecified sinusitis (chronic)] 02-28-2023 Chronic Other upper respiratory infections (3 sources) Streptococcal sore throat; Translations: [Streptococcal pharyngitis] Episodic Skin and subcutaneous tissue infections (1 source) Paronychia of toe; Translations: [Cellulitis of unspecified toe] Episodic Unclassified (1 source) APPOINTMENT CANCELLED Past or Other Problems Problem Classification Problem Date Documented Da te Episodic/Chronic Genitourinary symptoms and ill-defined conditions (13 sources) Nocturia; Translations: [Nocturia] Onset: 12-28-2020 12-28-2020 Episodic Other circulatory disease (5 sources) Elevated blood-pressure reading without diagnosis of hypertension; Translations: [Elevated blood-pressure reading, without diagnosis of hypertension] Onset: 12-28-2020 12-28-2020 Episodic Other screening for suspected conditions (not mental disorders or infectious disease) (5 sources) Other specified abnormal findings of blood chemistry; Translations: [Other nonspecific findings on examination of blood] Onset: 05-22-2017 05-22-2017 Episodic Spondylosis; intervertebral disc disorders; other back problems (2 sources) Neck pain; Translations: [Cervicalgia] Onset: 01-14-2023 01-14-2023 Episodic Results Test Name Value Interpretation Reference Range Facil ity Vital Signs Date Time Vital Sign Value Performing Clinician Connie saldivar 05-14-2023 16:45-0500 Body height 174 cm Lupe Saez MD Work Phone: [facility] 05-14-2023 16:45-0500 Body weight 110.68 kg Lupe Saez MD Work Phone: [facility] 05-14-2023 16:45-0500 Diastolic blood pressure 80 mm[Hg] Lupe Saez MD Work Phone: [facility] 05-14-2023 16:45-0500 Heart rate 88 /min Lupe Saez MD Work Phone: [facility] 05-14-2023 16:45-0500 SaO2% (BldA) [Mass fraction] 94 % Lupe Saez MD Work Phone: [facility] 05-14-2023 16:45-0500 Systolic blood pressure 110 mm[Hg] Lupe Saez MD Work Phone: [facility] 02-28-2023 09:03-0500 Body temperature 97.81 [degF] Virginia Aviles PERMIT AGENT.LIME KILN TENDER Work Phone: [facility] 02-28-2023 09:03-0500 Body weight 109.32 kg Virginia Aviles PERMIT AGENT.LIME KILN TENDER Work Phone: [facility] 02-28-2023 09:03-0500 Diastolic blood pressure 80 mm[Hg] Virginia Aviles PERMIT AGENT.LIME KILN TENDER Work Phone: [facility] 02-28-2023 09:03-0500 Heart rate 91 /min Virginia Aviles PERMIT AGENT.LIME KILN TENDER Work Phone: [facility] 02-28-2023 09:03-0500 Respiratory rate 20 /min Virginia Aviles PERMIT AGENT.LIME KILN TENDER Work Phone: [facility] 02-28-2023 09:03-0500 SaO2% (BldA) [Mass fraction] 97 % Virginia Aviles PERMIT AGENT.LIME KILN TENDER Work Phone: [facility] 02-28-2023 09:03-0500 Systolic blood pressure 118 mm[Hg] Virginia Aviles PERMIT AGENT.LIME KILN TENDER Work Phone: [facility] 02-18-2023 11:16-0500 Body height 174 cm Lupe Saez MD Work Phone: [facility] 02-18-2023 11:16-0500 Body weight 110.59 kg Lupe Saez MD Work Phone: [facility] 02-18-2023 11:16-0500 Diastolic blood pressure 76 mm[Hg] Lupe Saez MD Work Phone: [facility] 02-18-2023 11:16-0500 Heart rate 79 /min Lupe Saez MD Work Phone: [facility] 02-18-2023 11:16-0500 SaO2% (BldA) [Mass fraction] 97 % Lupe Saez MD Work Phone: [facility] 02-18-2023 11:16-0500 Systolic blood pressure 110 mm[Hg] Lupe Saez MD Work Phone: [facility] 01-14-2023 09:05-0400 Body weight 111.58 kg Lupe Saez MD Work Phone: [facility] 01-14-2023 09:05-0400 Diastolic blood pressure 88 mm[Hg] Lupe Saez MD Work Phone: [facility] 01-14-2023 09:05-0400 Heart rate 83 /min Lupe Saez MD Work Phone: [facility] 01-14-2023 09:05-0400 SaO2% (BldA) [Mass fraction] 95 % Lupe Saez MD Work Phone: [facility] 01-14-2023 09:05-0400 Systolic blood pressure 132 mm[Hg] Lupe Saez MD Work Phone: [facility] 09-27-2022 15:58-0400 Body temperature 97 [degF] Va Whitehead APRN.LIME KILN TENDER Work Phone: [facility] 09-27-2022 15:58-0400 Body weight 110.68 kg Va Whitehead APRN.LIME KILN TENDER Work Phone: [facility] 09-27-2022 15:58-0400 Diastolic blood pressure 74 mm[Hg] Va Whitehead APRN.LIME KILN TENDER Work Phone: [facility] 09-27-2022 15:58-0400 Heart rate 107 /min Va Whitehead APRN.LIME KILN TENDER Work Phone: [facility] 09-27-2022 15:58-0400 Respiratory rate 16 /min Va Whitehead APRN.LIME KILN TENDER Work Phone: [facility] 09-27-2022 15:58-0400 SaO2% (BldA) [Mass fraction] 96 % Va Whitehead APRN.LIME KILN TENDER Work Phone: [facility] 09-27-2022 15:58-0400 Systolic blood pressure 126 mm[Hg] Va Whitehead APRN.LIME KILN TENDER Work Phone: [facility] 07-05-2022 11:25-0400 Body temperature 97.3 [degF] Lupe Saez MD Work Phone: [facility] 07-05-2022 11:25-0400 Body weight 109.77 kg Lupe Saez MD Work Phone: [facility] 07-05-2022 11:25-0400 Diastolic blood pressure 82 mm[Hg] Lupe Saez MD Work Phone: [facility] 07-05-2022 11:25-0400 Heart rate 106 /min Lupe Saez MD Work Phone: [facility] 07-05-2022 11:25-0400 SaO2% (BldA) [Mass fraction] 95 % Lupe Saez MD Work Phone: [facility] 07-05-2022 11:25-0400 Systolic blood pressure 124 mm[Hg] Lupe Saez MD Work Phone: [facility] 07-02-2022 15:11-0400 Body temperature 97.81 [degF] Tony Simmons MD Work Phone: [facility] 07-02-2022 15:11-0400 Body weight 110.68 kg Tony Simmons MD Work Phone: [facility] 07-02-2022 15:11-0400 Diastolic blood pressure 80 mm[Hg] Tony Simmons MD Work Phone: [facility] 07-02-2022 15:11-0400 Heart rate 97 /min Tony Simmons MD Work Phone: [facility] 07-02-2022 15:11-0400 Respiratory rate 18 /min Tony Simmons MD Work Phone: [facility] 07-02-2022 15:11-0400 SaO2% (BldA) [Mass fraction] 97 % Tony Simmons MD Work Phone: [facility] 07-02-2022 15:11-0400 Systolic blood pressure 122 mm[Hg] Tony Simmons MD Work Phone: [facility] 01-25-2022 18:01-0400 Body temperature 97.59 [degF] Virginia Aviles PERMIT AGENT.LIME KILN TENDER Work Phone: [facility] 01-25-2022 18:01-0400 Body weight 106.96 kg Virginia Aviles PERMIT AGENT.LIME KILN TENDER Work Phone: [facility] 01-25-2022 18:01-0400 Diastolic blood pressure 82 mm[Hg] Virginia Aviles PERMIT AGENT.LIME KILN TENDER Work Phone: [facility] 01-25-2022 18:01-0400 Heart rate 95 /min Virginia Aviles PERMIT AGENT.LIME KILN TENDER Work Phone: [facility] 01-25-2022 18:01-0400 Respiratory rate 16 /min Virginia Aviles PERMIT AGENT.LIME KILN TENDER Work Phone: [facility] 01-25-2022 18:01-0400 SaO2% (BldA) [Mass fraction] 96 % Virginia Aviles PERMIT AGENT.LIME KILN TENDER Work Phone: [facility] 01-25-2022 18:01-0400 Systolic blood pressure 128 mm[Hg] Virginia Aviles PERMIT AGENT.LIME KILN TENDER Work Phone: [facility] 12-18-2021 19:03-0400 Body weight 106.14 kg Lupe Saez MD Work Phone: [facility] 12-18-2021 19:03-0400 Diastolic blood pressure 98 mm[Hg] Lupe Saez MD Work Phone: [facility] 12-18-2021 19:03-0400 Heart rate 104 /min Lupe Saez MD Work Phone: [facility] 12-18-2021 19:03-0400 Systolic blood pressure 142 mm[Hg] Lupe Saez MD Work Phone: [facility] 07-31-2021 10:06-0400 Body temperature 97.39 [degF] Va Whitehead APRN.LIME KILN TENDER Work Phone: [facility] 07-31-2021 10:06-0400 Body weight 106.14 kg Va Whitehead APRN.LIME KILN TENDER Work Phone: [facility] 07-31-2021 10:06-0400 Diastolic blood pressure 90 mm[Hg] Va Whitehead APRN.LIME KILN TENDER Work Phone: [facility] 07-31-2021 10:06-0400 Heart rate 83 /min Va Whitehead APRN.LIME KILN TENDER Work Phone: [facility] 07-31-2021 10:06-0400 Respiratory rate 18 /min Va Whitehead APRN.LIME KILN TENDER Work Phone: [facility] 07-31-2021 10:06-0400 SaO2% (BldA) [Mass fraction] 97 % Va Whitehead APRN.LIME KILN TENDER Work Phone: [facility] 07-31-2021 10:06-0400 Systolic blood pressure 124 mm[Hg] Va hWitehead APRN.LIME KILN TENDER Work Phone: [facility] Encounters Encounter Date Encounter Type Care Provider Facility Start: 05-14-2023 End: 05-15-2023 ambulatory LUPE SAEZ Facility:[facility] Start: 05-14-2023 End: 05-14-2023 Patient encounter procedure Lupe Saez MD Work Phone: [facility] Procedures Date Procedure Procedure Detail Performing Clinician Start: 04-04-2023 Lipid 1996 panel - S mau or Plasma Lupe Saez MD Work Phone: Start: 01-15-2023 Lipid 1996 panel - S mau or Plasma Lupe Saez MD Work Phone: Start: 07-02-2022 STREP A MOLECULAR (POC) Tony Simmons MD Work Phone: Start: 05-10-2018 Adult depression screening assessment Lupe Saez MD Work Phone: Start: 05-18-2017 Lipid 1996 panel - S mau or Plasma Lupe Saez MD Work Phone: Plan of Treatment Date Care Activity Detail Author Start: 01-03-2029 Urine microalbumin profile [facility] Start: 04-04-2028 Lipid panel Lipid Screening [facility] Start: 01-16-2028 Lipid 1996 panel - S mau or Plasma Lipid Screening [facility] Start: 05-14-2024 Annual PCP Team Business Systems Advisor christa Disease Visit Annual PCP Team Chronic Disease Visit [facility] Start: 02-19-2024 Annual PCP Team Business Systems Advisor christa Disease Visit Annual PCP Team Chronic Disease Visit [facility] Start: 02-19-2024 BP Controlled (<130/80) BP Controlle d (<130/80) [facility] Start: 02-19-2024 Covid-19 Vaccine ( season) Covid-19 Vaccine ( season) [facility] Immunizations Immunization Date Immunization Notes Care Provider Zach child 01-03-2019 influenza, injectabl e, quadrivalent, contains preservative Margie Tannhof PERMIT AGENT.LIME KILN TENDER Work Phone: [facility] 01-03-2019 tetanus toxoid, redu milton diphtheria toxoid, and acellular pertussis vaccine, adsorbed Margie Tannhof PERMIT AGENT.LIME KILN TENDER Work Phone: [facility] 01-03-2019 influenza virus vacc ine, unspecified formulation Lupe Saez MD Work Phone: [facility] 02-01-2018 influenza, injectabl e, quadrivalent, contains preservative Margie Tannhof PERMIT AGENT.LIME KILN TENDER Work Phone: [facility] 02-28-2017 influenza, injectabl e, quadrivalent, contains preservative Margie Tannhof PERMIT AGENT.LIME KILN TENDER Work Phone: [facility] 10-27-2011 tetanus toxoid, redu milton diphtheria toxoid, and acellular pertussis vaccine, adsorbed Margievee Graves PERMIT AGENT.LIME KILN TENDER Work Phone: [facility] 02-24-2010 influenza virus vacc ine, unspecified formulation Margie Graves PERMIT AGENT.LIME KILN TENDER Work Phone: [facility] Payers Date Payer Category Payer Unknown [id number] 2021 Unknown [id number] 2021 Private Health Insurance [facility] [id number] 2021-Present [phone] [address] [address] [place] [address] [facility] [id number] 2021 Private [facility] Insurance [facility] [id number] 2021-Present [phone] [address] [address] [place] [address] O [id number] Social History Date Type Detail Facility Start: 07-19-2011 End: 12-18-2021 Tobacco smoking status NHIS Ex-smoker [facility] Start: 07-19-2011 End: 12-18-2021 Tobacco use and exposure Former smokeless tobacco user [facility] End: 08-08-2018 History of tobacco use User of smokeless tobacco [facility] Start: 05-01-2021 End: 05-14-2023 Alcohol intake Current non-drinker of alcohol (finding) [facility] Start: 02-04-2009 End: 12-18-2021 Tobacco Comment uses snuff [facility] Start: 1985 Sex Assigned At Not on file C [facility] Start: 07-21-2021 End: 12-28-2021 Exposure to SARS-CoV-2 (event) Not sure [facility] Work Phone: Start: 08-31-2021 History SDOH Alcohol Frequency 1 [facility] Start: 08-31-2021 History SDOH Alcohol Std Drinks 98 [facility] Start: 08-31-2021 History SDOH Social Connections Phone 5 [facility] Start: 08-31-2021 History SDOH Social Connections Religious 3 [facility] Start: 08-31-2021 History SDOH Social Connections Meetings 2 [facility] Start: 08-31-2021 History SDOH Physica l Activity DPW 4 [facility] History of tobacco use Current smoker [facility] Start: 08-31-2021 End: 10-11-2022 History of Social function [facility] Start: 08-31-2021 End: 10-11-2022 Social connection and isolation panel [facility] Do you belong to any clubs or organizations such as jewish groups, unions, fraternal or athletic groups, or school groups? Yes [facility] Are you now , , , , never or living with a partner? [facility] How often to you hav e a drink containing alcohol? Never [facility] How many standard dr inks containing alcohol do you have on a typical day? Patient refused [facility] How hard is it for y ou to pay for the very basics like food, housing, medical care, and heating Not very hard [facility] (I/We) worried wheth er (my/our) food would run out before (I/we) got money to buy more. Never true [facility] In the past 12 month s, was there a time when you were not able to pay the mortgage or rent on time? No [facility] Clinical Notes 07-19-2011 to 05-14-2023 Patient Lupe Brian MD - 05/14/2023 4:45 PM Virginia Sorto APRN.CNP - 02/28/2023 9:14 AM EST Note Date & Type Note Facility 05-14-2023 Note HNO ID: [id number] Author: LUPE SAEZ MD Service: ? Author Type: Physician Type: Progress Notes Filed: 05/14/2023 17:16 Note Text: Patient presents with: Asthma Follow Up HPI: Patient presents today for office visit for follow up. HLD: Has been on Tricor since December 2022. No side effects. Cholesterol improving but trigs are still very high. Added Atorvastatin 20 mg 04/05/23. Takes meds at night. Mentions leg pain during the night and wakes up with leg pain. Does state pain subsides once up and moving. Leg pain started around time of starting Statin. He started taking mag and vit d and fish oil . He does not drink much. Discussed hydration. No issues during the day. Is very mild when it acts up. PULM: Since winter started. Hx of asthma[place] Struggles with dander in air and cold air. Breathing is worse at night. Wakes up in the morning hacking and chest feels tight. Inhalers are . Works with livestock. Does not bother him every day. Usually is worse in the cold air. Often has had asthma exacerbations when it gets cold. No fever or chills. Does not feel ill. No chest pain or edema. MEDICATIONS: Current Outpatient Medications Medication Sig atorvastatin (LIPITOR) 20 mg tablet Take 1 tablet by mouth daily at bedtime. For cholesterol. fenofibrate nanocrystallized (TRICOR) 145 mg tablet Take 1 tablet by mouth once daily. lisinopril (ZESTRIL) 10 mg tablet Take 1 tablet by mouth once daily. DULoxetine (CYMBALTA) 60 mg capsule take 1 capsule by mouth once daily FEXOFENADINE HCL (FRED ORAL) Take 1 tablet by mouth as needed. TRIAMCINOLONE ACETONIDE (NASACORT NASAL) Use 2 Sprays in the nose as needed. No current facility-administered medications for this visit. ALLERGIES: ALLERGIES Allergen Reactions Animal Dander Itching cow dander - sneezing, runny nose Dust Itching sneezing, runny nose Dust Mites Itching sneezing, runny nose Grass Pollen Itching and hay -- sneezing, runny nose PAST MEDICAL HISTORY Diagnosis Date Anxiety and depression 02/28/2017 Chews tobacco 07/19/2011 Hypertriglyceridemia 05/22/2017 Low serum testosterone level in male 05/22/2017 Metabolic syndrome 12/15/2020 Primary hypertension 01/04/2021 PAST SURGICAL HISTORY Procedure Laterality Date NONE FAMILY HISTORY Problem Relation Age of Onset None Mother Heart Maternal Grandfather Diabetes Maternal Grandfather Hypertension Father Social History Tobacco Use Smoking status: Former Smokeless tobacco: Former Quit date: 08/08/2018 Tobacco comments: uses snuff Vaping Use Vaping Use: Never used Substance Use Topics Alcohol use: No Drug use: No Reviewed current medications, allergies, past medical history, surgical history, family history and social history today. REVIEW OF SYSTEMS All other reviewed and negative other than HPI. VITALS: BP 110/80 Pulse 88 Ht 174 cm (5' 8.5 ) Wt 110.7 kg (244 lb) SpO2 94% BMI 36.56 kg/m? Last 4 Encounter Wt Readings: Date: Wt: 02/28/2023 109.3 kg (241 lb) 02/18/2023 110.6 kg (243 lb 12.8 oz) 01/14/2023 111.6 kg (246 lb) 09/27/2022 110.7 kg (244 lb) PHYSICAL EXAMINATION: General appearance: Well appearing, alert, in no acute distress, well-hydrated, well nourished. Skin: Skin color, texture, turgor normal, no suspicious rashes or lesions Head: Normocephalic, no masses, lesions, tenderness or abnormalities Eyes: Anicteric sclera. Pupils are equally round and reactive to light. Extraocular movements are intact. Ears: External ears normal, canals clear Nose/Sinuses: Nares normal, septum midline, mucosa normal, no drainage or sinus tenderness Oropharynx: Lips, mucosa, and tongue normal, teeth and gums normal, oropharynx normal Neck: Negative findings: no adenopathy Lungs: lungs moving well. Minimal wheeze with forced expiration. Heart: RRR without murmur, gallop, or rubs. No ectopy Abdomen: Normal abdominal exam, Abdomen soft, non-tender. Bowel sounds normal. No masses, organomegaly Extremities: No deformities, edema, skin discoloration, clubbing or cyanosis. Good capillary refill. ASSESSMENT/PLAN: 1. Leg cramp - ICD9: 729.82, ICD10: R25.2 (primary diagnosis) - suspect is hydration. Doubt is meds given his - VITAMIN D 25 HYDROXY - CK CREATINE KINASE - CBC + DIFF - IRON + TIBC - MAGNESIUM BLD 2. Hypertriglyceridemia - ICD9: 272.1, ICD10: E78.1 - Uncontrolled - check labs next week. Continue meds. Discussed that this is likely genetic. 3. Primary hypertension - ICD9: 401.9, ICD10: I10 - Controlled - Continue current medications - BASIC METABOLIC PNL 4. Mild intermittent asthma, uncomplicated - ICD9: 493.90, ICD10: J45.20 5. Wheezing - ICD9: 786.07, ICD10: R06.2 - Discussed risks and benefits of new medication with the patient. Advised them to call if any side effects or questions. Red flags for re-assessment reviewe (more content not included)... [facility] 05-14-2023 Instructions Lupe Saez MD - 05/14/2023 5:09 PM EST Guidelines for low cholesterol, low triglyceride diets FOODS TO USE MEATS/FISH - Choose lean meats (chicken, turkey, veal, and nonfatty cuts of beef with excess fat trimmed; one serving = 3 oz. of cooked meat). Also, fresh or frozen fish, canned fish packed in water, and shellfish (lobster, crab, shrimp, oysters). Limit use to no more than one serving of one of these per week. Shellfish are high in cholesterol but low in saturated fat and should be used sparingly. Meats and fish should be broiled (haji or oven) or baked on a rack. EGGS - Egg substitutes and egg whites (use freely). Egg yolks (limit two per week). FRUITS - Eat three servings of fresh fruit per day (1 serving = 1/2 cup). Be sure to have at least one citrus fruit daily. Frozen or canned fruit with no sugar or syrup added may be used. VEGETABLES - Most vegetables are not limited (see Foods to Avoid). One dark green (string beans, escarole) or one deep yellow (squash) vegetable is recommended daily. Cauliflower, broccoli, and celery, as well as potato skins, are recommended for their fiber content (fiber is associated with cholesterol reduction). It is preferable to steam vegetables, but they may be boiled, strained, or braised with polyunsaturated vegetable oil (see below). BEANS - Dried peas or beans (1 serving = 1/2 cup) may be used as a bread substitute. NUTS - Almonds, walnuts, and peanuts may be used sparingly (1 serving = 1 tablespoon). Use pumpkin, sesame, or sunflower seeds. BREADS/GRAINS - One roll or one slice of whole grain or enriched bread may be used, or three soda crackers or four pieces of vanesa toast as a substitute. Spaghetti, rice or noodles (1/2 cup) or 1/2 large ear of corn may be used as a bread substitute. In preparing these foods, do not use butter or shortening; use soft margarine. Also use egg and sugar substitutes. Choose high fiber grains, such as oats and whole wheat. CEREALS - Use 1/2 cup of hot cereal or 1/4 cup of cold cereal per day. Add a sugar substitute if desired, with 99% fat-free or skim milk. MILK PRODUCTS - Always use 99% fat-free or skim milk, dairy products such as low-fat cheeses (henderson's, uncreamed diet cottage), low-fat yogurt, and powdered skim milk. FATS/OILS - Use soft (not stick) margarine, vegetable oils that are high in polyunsaturated fats (such as safflower, sunflower, soybean, corn, and cottonseed). Always refrigerate meat drippings to harden the fat and remove it before preparing gravies. DESSERTS/SNACKS - Limit to two servings per day; substitute each serving for a bread/cereal serving; ice milk or water sherbet (1/4 cup); unflavored gelatin or gelatin flavored with sugar substitute (1/2 cup); pudding prepared with skim milk (1/2 cup); egg white souffles; unbuttered popcorn (1 1/2 cups). Substitute carob for chocolate. BEVERAGES - Fresh fruit juices (limit to 4 oz. per day); black coffee; plain or herbal teas; soft drinks with sugar substitutes; club soda, preferably salt-free; cocoa made with skim milk or nonfat dried milk and water (sugar substitute added, if desired); clear broth. Alcohol - limit to two servings per day (see Foods to Avoid). MISCELLANEOUS - You may use the following freely: vinegar; spices; herbs; nonfat bouillon; mustard; Worcestershire sauce; soy sauce; flavoring essence. FOODS TO AVOID MEATS/FISH - Marbled beef, pork, desai, sausage and other pork products; fatty fowl (duck, goose); skin and fat of turkey and chicken; processed meats; luncheon meats (salami, bologna); frankfurters and fast food hambergers (they are loaded with fat); organ meats (kidneys, liver); canned fish packed in oil. EGGS - Limit egg yolks to two per week. FRUITS - Coconuts (rich in saturated fat) VEGETABLES - Avoid avocados. Starchy vegetables (potatoes, corn saunders beans, dried peas, beans) may be used only if they are substitutes for a serving of bread or cereal. (Baked potato skin, however, is desirable for its fiber content). BEANS - Commercial baked beans with sugar and/or pork added. NUTS - Avoid nuts. Limit peanuts and walnuts to one tablespoonful per day. BREADS/GRAINS - Any baked goods with shortening and/or sugar. Commercial mixes with dried eggs and whole milk. Avoid sweet rolls, doughnuts, breakfast pastries (Japanese), and sweetened packaged cereals (the added sugar converts readily to triglycerides). MILK PRODUCTS - Whole milk and whole-milk packaged goods; cream; ice cream; whole-milk puddings, yogurt, or cheeses; nondairy cream substitutes. FATS/OILS - Butter, lard, animal fats, desai drippings, gravies, cream sauces, as well as palm and coconut oils. All these are high in saturated fats. Examine labels on cholesterol free products for hydrogenated fats. (These are oils that have been hardened into solids and in the process have become saturated.) DESSERTS/SNACKS - Fried snack foods like potato chips; chocolate; candies in general; jams, jellies, syrups; whole-milk puddings; ice cream and milk sherberts; hydrogenatd peanut butter. BEVERAGES - Sugared fruit juices and soft drinks; cocoa made with whole milk and/or sugar. When using alcohol (1 oz. liquor, 5 oz. beer, or 2 1/2 oz. dry table wine per serving), one serving must be substituted for one bread or cereal serving (limit two servings of alcohol per day). SPECIAL NOTES 1. Remember that even nonlimited foods should be used in moderation. 2. While on a cholesterol-lowering diet, be sure to avoid animal fats and marbled meats. 3. While on a triglyceride-lowering diet, be sure to avoid sweets and to control the amount of carbohydrates you eat (starchy foods such as flower, bread, or potatoes). 4. Buy a good low-fat cookbook, such as the one published by the [employer] [employer]. 5. Consult your physician if you have any questions. documented in this encounter [facility] 05-14-2023 History of Present illness Narrative Patient presents with: Asthma Follow Up HPI: Patient presents today for office visit for follow up. HLD: Has been on Tricor since December 2022. No side effects. Cholesterol improving but trigs are still very high. Added Atorvastatin 20 mg 04/05/23. Takes meds at night. Mentions leg pain during the night and wakes up with leg pain. Does state pain subsides once up and moving. Leg pain started around time of starting Statin. He started taking mag and vit d and fish oil . He does not drink much. Discussed hydration. No issues during the day. Is very mild when it acts up. PULM: Since winter started. Hx of asthma[place] Struggles with dander in air and cold air. Breathing is worse at night. Wakes up in the morning hacking and chest feels tight. Inhalers are . Works with livestock. Does not bother him every day. Usually is worse in the cold air. Often has had asthma exacerbations when it gets cold. No fever or chills. Does not feel ill. No chest pain or edema. MEDICATIONS: Current Outpatient Medications Medication Sig atorvastatin (LIPITOR) 20 mg tablet Take 1 tablet by mouth daily at bedtime. For cholesterol. fenofibrate nanocrystallized (TRICOR) 145 mg tablet Take 1 tablet by mouth once daily. lisinopril (ZESTRIL) 10 mg tablet Take 1 tablet by mouth once daily. DULoxetine (CYMBALTA) 60 mg capsule take 1 capsule by mouth once daily FEXOFENADINE HCL (FRED ORAL) Take 1 tablet by mouth as needed. TRIAMCINOLONE ACETONIDE (NASACORT NASAL) Use 2 Sprays in the nose as needed. No current facility-administered medications for this visit. ALLERGIES: ALLERGIES Allergen Reactions Animal Dander Itching cow dander - sneezing, runny nose Dust Itching sneezing, runny nose Dust Mites Itching sneezing, runny nose Grass Pollen Itching and hay -- sneezing, runny nose PAST MEDICAL HISTORY Diagnosis Date Anxiety and depression 02/28/2017 Chews tobacco 07/19/2011 Hypertriglyceridemia 05/22/2017 Low serum testosterone level in male 05/22/2017 Metabolic syndrome 12/15/2020 Primary hypertension 01/04/2021 PAST SURGICAL HISTORY Procedure Laterality Date NONE FAMILY HISTORY Problem Relation Age of Onset None Mother Heart Maternal Grandfather Diabetes Maternal Grandfather Hypertension Father Social History Tobacco Use Smoking status: Former Smokeless tobacco: Former Quit date: 08/08/2018 Tobacco comments: uses snuff Vaping Use Vaping Use: Never used Substance Use Topics Alcohol use: No Drug use: No Reviewed current medications, allergies, past medical history, surgical history, family history and social history today. REVIEW OF SYSTEMS All other reviewed and negative other than HPI. VITALS: BP 110/80 Pulse 88 Ht 174 cm (5' 8.5 ) Wt 110.7 kg (244 lb) SpO2 94% BMI 36.56 kg/m Last 4 Encounter Wt Readings: Date: Wt: 02/28/2023 109.3 kg (241 lb) 02/18/2023 110.6 kg (243 lb 12.8 oz) 01/14/2023 111.6 kg (246 lb) 09/27/2022 110.7 kg (244 lb) PHYSICAL EXAMINATION: General appearance: Well appearing, alert, in no acute distress, well-hydrated, well nourished. Skin: Skin color, texture, turgor normal, no suspicious rashes or lesions Head: Normocephalic, no masses, lesions, tenderness or abnormalities Eyes: Anicteric sclera. Pupils are equally round and reactive to light. Extraocular movements are intact. Ears: External ears normal, canals clear Nose/Sinuses: Nares normal, septum midline, mucosa normal, no drainage or sinus tenderness Oropharynx: Lips, mucosa, and tongue normal, teeth and gums normal, oropharynx normal Neck: Negative findings: no adenopathy Lungs: lungs moving well. Minimal wheeze with forced expiration. Heart: RRR without murmur, gallop, or rubs. No ectopy Abdomen: Normal abdominal exam, Abdomen soft, non-tender. Bowel sounds normal. No masses, organomegaly Extremities: No deformities, edema, skin discoloration, clubbing or cyanosis. Good capillary refill. ASSESSMENT/PLAN: 1. Leg cramp - ICD9: 729.82, ICD10: R25.2 (primary diagnosis) - suspect is hydration. Doubt is meds given his - VITAMIN D 25 HYDROXY - CK CREATINE KINASE - CBC + DIFF - IRON + TIBC - MAGNESIUM BLD 2. Hypertriglyceridemia - ICD9: 272.1, ICD10: E78.1 - Uncontrolled - check labs next week. Continue meds. Discussed that this is likely genetic. 3. Primary hypertension - ICD9: 401.9, ICD10: I10 - Controlled - Continue current medications - BASIC METABOLIC PNL 4. Mild intermittent asthma, uncomplicated - ICD9: 493.90, ICD10: J45.20 5. Wheezing - ICD9: 786.07, ICD10: R06.2 - Discussed risks and benefits of new medication with the patient. Advised them to call if any side effects or questions. Red flags for re-assessment reviewed with patient in detail. Call if symptoms worsen at all or if not better in one to two weeks Reviewed diagnosis and treatment options in detail. Questions were answered. Patient expressed understanding of treatment plan. - ALBUTEROL SULFATE HFA 90 MCG/ACTUATION AEROSOL INHALER - PREDNISONE 20 MG TABLET Lupe Saez MD documented in this encounter [facility] 02-28-2023 Note HNO ID: [id number] Author: Virginia Aviles APRN.LIME K[employer] T[employer]ER Service: ? Author Type: Nurse Practitioner Type: Progress Notes Filed: 02/28/2023 9:44 AM Note Text: This note was created using NoteWriter. Subjective Javed Joseph is a 37 year old male. 37 year old male with PMH HTN and asthma presents for illness. Acute onset 10 days ago +sinus pressure +sinus pain +cough Denies SOB Denies fever or chills Denies N/V/D Has used nasal spray OTC medicines Denies tobacco usage. The history is provided by the patient. No language tutor was used. Sinus Problem This is a new problem. The current episode started 1 to 4 weeks ago. The problem occurs constantly. The problem has been gradually worsening. Associated symptoms include congestion, coughing and headaches. Pertinent negatives include no abdominal pain, anorexia, arthralgias, change in bowel habit, chest pain, chills, diaphoresis, fatigue, fever, joint swelling, myalgias, nausea, neck pain, numbness, rash, sore throat, swollen glands, urinary symptoms, vertigo, visual change, vomiting or weakness. Nothing aggravates the symptoms. Treatments tried: OTC medicines. The treatment provided no relief. PAST MEDICAL HISTORY Diagnosis Date Anxiety and depression 02/28/2017 Chews tobacco 07/19/2011 Hypertriglyceridemia 05/22/2017 Low serum testosterone level in male 05/22/2017 Metabolic syndrome 12/15/2020 Primary hypertension 01/04/2021 PAST SURGICAL HISTORY Procedure Laterality Date NONE ALLERGIES Animal Dander, Dust, Dust Mites, and Grass Pollen MEDICATIONS fenofibrate nanocrystallized (TRICOR) 145 mg tablet Take 1 tablet by mouth once daily. lisinopril (ZESTRIL) 10 mg tablet Take 1 tablet by mouth once daily. DULoxetine (CYMBALTA) 60 mg capsule take 1 capsule by mouth once daily FEXOFENADINE HCL (FRED ORAL) Take 1 tablet by mouth as needed. TRIAMCINOLONE ACETONIDE (NASACORT NASAL) Use 2 Sprays in the nose as needed. doxycycline (VIBRA-TABS) 100 mg tablet Take 1 tablet by mouth two times a day for 7 days. FAMILY HISTORY Problem Relation Age of Onset None Mother Heart Maternal Grandfather Diabetes Maternal Grandfather Hypertension Father Social History Tobacco Use Smoking status: Former Smokeless tobacco: Former Quit date: 08/08/2018 Tobacco comments: uses snuff Vaping Use Vaping Use: Never used Substance Use Topics Alcohol use: No Drug use: No Review of Systems Constitutional: Negative for chills, diaphoresis, fatigue and fever. HENT: Positive for congestion, postnasal drip, rhinorrhea, sinus pressure and sinus pain. Negative for sore throat. Eyes: Negative for photophobia, pain, discharge, redness, itching and visual disturbance. Respiratory: Positive for cough. Cardiovascular: Negative for chest pain. Gastrointestinal: Negative for abdominal pain, anorexia, change in bowel habit, nausea and vomiting. Musculoskeletal: Negative for arthralgias, joint swelling, myalgias and neck pain. Skin: Negative for rash. Allergic/Immunologic: Negative for environmental allergies, food allergies and immunocompromised state. Neurological: Positive for headaches. Negative for dizziness, vertigo, facial asymmetry, weakness and numbness. Hematological: Negative for adenopathy. Does not bruise/bleed easily. Psychiatric/Behavioral: Negative for agitation and behavioral problems. Objective BP 118/80 Pulse 91 Temp 36.6 ?C (97.8 ?F) Resp 20 Wt 109.3 kg (241 lb) SpO2 97% BMI 36.11 kg/m? Physical Exam Vitals and nursing note reviewed. Constitutional: General: He is not in acute distress. Appearance: Normal appearance. He is not ill-appearing, toxic-appearing or diaphoretic. HENT: Head: Normocephalic and atraumatic. Comments: +maxillary sinus pressure Right Ear: External ear normal. Left Ear: External ear normal. Ears: Comments: Bilateral TM's mild erythema Nose: Nose normal. No congestion or rhinorrhea. Mouth/Throat: Mouth: Mucous membranes are moist. Pharynx: Oropharynx is clear. Posterior oropharyngeal erythema present. No oropharyngeal exudate. Comments: +post nasal drainage Eyes: General: Right eye: No discharge. Left eye: No discharge. Extraocular Movements: Extraocular movements intact. Conjunctiva/sclera: Conjunctivae normal. Pupils: Pupils are equal, round, and reactive to light. Cardiovascular: Rate and Rhythm: Normal rate and regular rhythm. Pulses: Normal pulses. Heart sounds: Normal heart sounds. No murmur heard. No friction rub. No gallop. Pulmonary: Effort: Pulmonary effort is normal. No respiratory distress. Breath sounds: Normal breath sounds. No stridor. No wheezing, rhonchi or rales. Chest: Chest wall: No tenderness. Abdominal: General: Abdomen is flat. There is no distension. Palpations: Abdomen is soft. There is no mass. Tenderness: There is no abdominal tenderness. There is no guarding or (more content not included)... [facility] 02-28-2023 History of Present illness Narrative This note was created using NoteWriter. Subjective Javed Joseph is a 37 year old male. 37 year old male with PMH HTN and asthma presents for illness. Acute onset 10 days ago +sinus pressure +sinus pain +cough Denies SOB Denies fever or chills Denies N/V/D Has used nasal spray OTC medicines Denies tobacco usage. The history is provided by the patient. No language tutor was used. Sinus Problem This is a new problem. The current episode started 1 to 4 weeks ago. The problem occurs constantly. The problem has been gradually worsening. Associated symptoms include congestion, coughing and headaches. Pertinent negatives include no abdominal pain, anorexia, arthralgias, change in bowel habit, chest pain, chills, diaphoresis, fatigue, fever, joint swelling, myalgias, nausea, neck pain, numbness, rash, sore throat, swollen glands, urinary symptoms, vertigo, visual change, vomiting or weakness. Nothing aggravates the symptoms. Treatments tried: OTC medicines. The treatment provided no relief. PAST MEDICAL HISTORY Diagnosis Date Anxiety and depression 02/28/2017 Chews tobacco 07/19/2011 Hypertriglyceridemia 05/22/2017 Low serum testosterone level in male 05/22/2017 Metabolic syndrome 12/15/2020 Primary hypertension 01/04/2021 PAST SURGICAL HISTORY Procedure Laterality Date NONE ALLERGIES Animal Dander, Dust, Dust Mites, and Grass Pollen MEDICATIONS fenofibrate nanocrystallized (TRICOR) 145 mg tablet Take 1 tablet by mouth once daily. lisinopril (ZESTRIL) 10 mg tablet Take 1 tablet by mouth once daily. DULoxetine (CYMBALTA) 60 mg capsule take 1 capsule by mouth once daily FEXOFENADINE HCL (FRED ORAL) Take 1 tablet by mouth as needed. TRIAMCINOLONE ACETONIDE (NASACORT NASAL) Use 2 Sprays in the nose as needed. doxycycline (VIBRA-TABS) 100 mg tablet Take 1 tablet by mouth two times a day for 7 days. FAMILY HISTORY Problem Relation Age of Onset None Mother Heart Maternal Grandfather Diabetes Maternal Grandfather Hypertension Father Social History Tobacco Use Smoking status: Former Smokeless tobacco: Former Quit date: 08/08/2018 Tobacco comments: uses snuff Vaping Use Vaping Use: Never used Substance Use Topics Alcohol use: No Drug use: No Review of Systems Constitutional: Negative for chills, diaphoresis, fatigue and fever. HENT: Positive for congestion, postnasal drip, rhinorrhea, sinus pressure and sinus pain. Negative for sore throat. Eyes: Negative for photophobia, pain, discharge, redness, itching and visual disturbance. Respiratory: Positive for cough. Cardiovascular: Negative for chest pain. Gastrointestinal: Negative for abdominal pain, anorexia, change in bowel habit, nausea and vomiting. Musculoskeletal: Negative for arthralgias, joint swelling, myalgias and neck pain. Skin: Negative for rash. Allergic/Immunologic: Negative for environmental allergies, food allergies and immunocompromised state. Neurological: Positive for headaches. Negative for dizziness, vertigo, facial asymmetry, weakness and numbness. Hematological: Negative for adenopathy. Does not bruise/bleed easily. Psychiatric/Behavioral: Negative for agitation and behavioral problems. Objective BP 118/80 Pulse 91 Temp 36.6 C (97.8 F) Resp 20 Wt 109.3 kg (241 lb) SpO2 97% BMI 36.11 kg/m Physical Exam Vitals and nursing note reviewed. Constitutional: General: He is not in acute distress. Appearance: Normal appearance. He is not ill-appearing, toxic-appearing or diaphoretic. HENT: Head: Normocephalic and atraumatic. Comments: +maxillary sinus pressure Right Ear: External ear normal. Left Ear: External ear normal. Ears: Comments: Bilateral TM's mild erythema Nose: Nose normal. No congestion or rhinorrhea. Mouth/Throat: Mouth: Mucous membranes are moist. Pharynx: Oropharynx is clear. Posterior oropharyngeal erythema present. No oropharyngeal exudate. Comments: +post nasal drainage Eyes: General: Right eye: No discharge. Left eye: No discharge. Extraocular Movements: Extraocular movements intact. Conjunctiva/sclera: Conjunctivae normal. Pupils: Pupils are equal, round, and reactive to light. Cardiovascular: Rate and Rhythm: Normal rate and regular rhythm. Pulses: Normal pulses. Heart sounds: Normal heart sounds. No murmur heard. No friction rub. No gallop. Pulmonary: Effort: Pulmonary effort is normal. No respiratory distress. Breath sounds: Normal breath sounds. No stridor. No wheezing, rhonchi or rales. Chest: Chest wall: No tenderness. Abdominal: General: Abdomen is flat. There is no distension. Palpations: Abdomen is soft. There is no mass. Tenderness: There is no abdominal tenderness. There is no guarding or rebound. Hernia: No hernia is present. Musculoskeletal: General: No swelling, tenderness, deformity or signs of injury. Normal range of motion. Cervical back: Normal range of motion and neck supple. No rigidity or tenderness. Right lower leg: No edema. Left lower leg: No edema. Lymphadenopathy: Cervical: No cervical adenopathy. Skin: General: Skin is warm and dry. Capillary Refill: Capillary refill takes less than 2 seconds. Coloration: Skin is not jaundiced or pale. Findings: No bruising, lesion or rash. Neurological: General: No focal deficit present. Mental Status: He is alert and oriented to person, place, and time. Cranial Nerves: No cranial nerve deficit. Sensory: No sensory deficit. Motor: No weakness. Coordination: Coordination normal. Gait: Gait normal. Deep Tendon Reflexes: Reflexes normal. Psychiatric: Mood and Affect: Mood normal. Behavior: Behavior normal. Thought Content: Thought content normal. Assessment and Plan ASSESSMENT/PLAN: 1. Rhinosinusitis - ICD9: 473.9, ICD10: J32.9 X 10 days No red flags - Will begin treatment with as per antibiotic as written, see orders - The patient should also be given OTC cough and cold meds as needed, warm salt water gargles, throat lozenges and/or OTC throat spray as needed, and nasal saline gtts and suction prn for the first 5-7 days of treatment. - Supportive care with plenty of fluids, rest, and analgesia prn. - Follow up in 3-5 days if symptoms persist or worsen. Virginia Aviles APRN.SUSIE documented in this encounter [facility] documented as of this encounter (statuses as of 02/18/2023) [facility]11-20-2023 History of Past illness Narrative* Problem Noted Date Diagnosed Date Resolved Date Swallowing painful 02/18/2023 02/18/2023 3 Upper respiratory tract infection 07/11/2022 023 02/18/2023 Pain of left lower leg 01/31/2022 02/18/202302/18 Nocturia 12/28/2020 02/18/2023 Elevated blood pressure read ing without diagnosis of hypertension 12/28/2020 12/18/2021 Low serum testosterone level in male 05/22/2017 12/18/2021 Anxiety and depression 02/28/201712/18 Chews tobacco 07/19/2011 09/04/2018 Sprain and strain of unspeci fied site of shoulder and upper arm 04/04/2006 02/28/2017 documented as of this encounter (statuses as of 02/28/2023) [facility] History of Past illness Narrative* Problem Noted Date Diagnosed Date Resolved Date Swallowing painful 02/18/2023 02/18/2023 Upper respiratory tract infection 07/11/2022 023 02/18/2023 Pain of left lower leg 01/31/2022 02/18/202302/18 Nocturia 12/28/2020 02/18/2023 Elevated blood pressure read ing without diagnosis of hypertension 12/28/2020 12/18/2021 Low serum testosterone level in male 05/22/2017 12/18/2021 Anxiety and depression 02/28/201712/18 Chews tobacco 07/19/2011 09/04/2018 Sprain and strain of unspeci fied site of shoulder and upper arm 04/04/2006 02/28/2017 documented as of this encounter (statuses as of 05/14/2023) [facility]11-20-2023 NoteHNO ID: [id number] Author: Lupe Saez MD Service: ? Author Type: Physician Type: Progress Notes Filed: 02/18/2023 11:40 AM Note Text: Patient presents with: Follow Up HPI: Patient presents today for office visit for follow up. Due for labs in one week. Recently started on Fenofibrate. No side effects. No chest pain or shortness of breath. No longer having to take lorazepam. Discussed avoiding benzos. No migraine since going to ER. Doing well. Neck pain is better. Did not do PT. Got a massage and is doing well. See previous OV: HPI: Patient presents today for office visit for ER follow up. HOSPITAL/ER FOLLOW UP: Reason for visit: headache, neck pain Which facility: [facility] Date of visit: 01/04/23 Diagnosis: migraine Testing done: CTA head/neck, chest cta Treatment given: treated in ER with pain meds Current symptoms: still with the pain in his neck and head Denies numbness, tingling, or changes in vision. Takes ibuprofen which helps some. Chiropractor seems to also help some. They were unable to complete some of the labs in ER(d dimer) due to triglycerides. He has had this issue in the past. Has quit drinking soda and watching diet some. Needing to do something about this. Last checked here in 2018. Checked at [facility] 08/12/20 Trigs were 1543. sugars were up as well. He had seen endo who appeared to deal more with his testosterone and sugars. Discussed that we can try to work on his testosterone at some point but dicussed that my concern is more his sugars and urgently, his trigs. Discussed risks of elevated trigs and pancreatitis. No polyuria or polydipsia. Is drinking a lot of water. Bp is stable. Still with neck pain that started after sleeping on a bad mattress. No issues with his Component Latest Ref Rng AND Units 01/15/2023 Protein, Total 6.3 - 8.0 g/dL 6.2 (L) Albumin 3.9 - 4.9 g/dL 4.6 Calcium 8.5 - 10.2 mg/dL 9.3 Bilirubin, Total 0.2 - 1.3 mg/dL 0.3 Alkaline Phosphatase 38 - 113 U/L 70 AST 14 - 40 U/L 26 ALT 10 - 54 U/L 26 Glucose 74 - 99 mg/dL 106 (H) BUN 9 - 24 mg/dL 20 Creatinine 0.73 - 1.22 mg/dL 1.05 Sodium 136 - 144 mmol/L 136 Potassium 3.7 - 5.1 mmol/L 4.5 Chloride 97 - 105 mmol/L 99 CO2 22 - 30 mmol/L 24 Anion Gap 9 - 18 mmol/L 13 eGFR >=60 mL/min/1.73mA? 93 Cholesterol, Total <200 mg/dL 280 (H) Triglyceride <150 mg/dL 1,598 (H) HDL Cholesterol >39 mg/dL 16 (L) Non HDL Cholesterol <130 mg/dL 264 (H) Fasting Time hrs 13 VLDL Cholesterol TC:HDL Ratio <5.10 17.50 (H) LDL Cholesterol LDL:HDL Ratio T4 5.5 - 10.2 ug/dL 6.6 T4 Uptake 0.91 - 1.19 1.03 FTI 5.3 - 10.8 ug/dL 6.4 Hemoglobin A1C 4.3 - 5.6 % 6.1 (H) Estimated Average Glucose mg/dL 128 TSH 0.270 - 4.200 mIU/L 3.220 LDL Cholesterol, Direct <100 mg/dL 45 MEDICATIONS: Current Outpatient Medications Medication Sig fenofibrate nanocrystallized (TRICOR) 145 mg tablet Take 1 tablet by mouth once daily. lisinopril (ZESTRIL) 10 mg tablet Take 1 tablet by mouth once daily. DULoxetine (CYMBALTA) 60 mg capsule take 1 capsule by mouth once daily FEXOFENADINE HCL (FRED ORAL) Take 1 tablet by mouth as needed. TRIAMCINOLONE ACETONIDE (NASACORT NASAL) Use 2 Sprays in the nose as needed. No current facility-administered medications for this visit. ALLERGIES: ALLERGIES Allergen Reactions Animal Dander Itching cow dander - sneezing, runny nose Dust Itching sneezing, runny nose Dust Mites Itching sneezing, runny nose Grass Pollen Itching and hay -- sneezing, runny nose PAST MEDICAL HISTORY Diagnosis Date Anxiety and depression 02/28/2017 Chews tobacco 07/19/2011 Hypertriglyceridemia 05/22/2017 Low serum testosterone level in male 05/22/2017 Metabolic syndrome 12/15/2020 Primary hypertension 01/04/2021 PAST SURGICAL HISTORY Procedure Laterality Date NONE FAMILY HISTORY Problem Relation Age of Onset None Mother Heart Maternal Grandfather Diabetes Maternal Grandfather Hypertension Father Social History Tobacco Use Smoking status: Former Smokeless tobacco: Former Quit date: 08/08/2018 Tobacco comments: uses snuff Vaping Use Vaping Use: Never used Substance Use Topics Alcohol use: No Drug use: No Reviewed current medications, allergies, past medical history, surgical history, family history and social history today. REVIEW OF SYSTEMS All other reviewed and negative other than HPI. HEALTH MAINTENANCE: Reviewed health maintenance issues today and recommended the following in detail. Hepatitis B Vaccine(1 of 3 - 3-dose series) Never done BP Controlled (<130/80) Never done Depression Assessment Never done Influenza Vaccine(1) due on 11/30/2022 Covid-19 Vaccine(3 - 2022-24 season) due on 11/30/2022 VITALS: BP 110/76 Pulse 79 Ht 174 cm (5' 8.5 ) Wt 110.6 kg (243 lb 12.8 oz) SpO2 97% BMI 36.53 kg/m? Last 4 Encounter Wt Readings: Date: Wt: 01/14/2023 111.6 kg (246 lb) (more content not included)...[facility]11-20-2023 History of Present illness Narrative* Lupe Saez MD - 02/18/2023 11:16 AM EST Patient presents with: Follow Up HPI: Patient presents today for office visit for follow up. Due for labs in one week. Recently started on Fenofibrate. No side effects. No chest pain or shortness of breath. No longer having to take lorazepam. Discussed avoiding benzos. No migraine since going to ER. Doing well. Neck pain is better. Did not do PT. Got a massage and is doing well. See previous OV: HPI: Patient presents today for office visit for ER follow up. HOSPITAL/ER FOLLOW UP: Reason for visit: headache, neck pain Which facility: [facility] Date of visit: 01/04/23 Diagnosis: migraine Testing done: CTA head/neck, chest cta Treatment given: treated in ER with pain meds Current symptoms: still with the pain in his neck and head Denies numbness, tingling, or changes in vision. Takes ibuprofen which helps some. Chiropractor seems to also help some. They were unable to complete some of the labs in ER(d dimer) due to triglycerides. He has had this issue in the past. Has quit drinking soda and watching diet some. Needing to do something about this. Last checked here in 2018. Checked at [facility] 08/12/20 Trigs were 1543. sugars were up as well. He had seen endo who appeared to deal more with his testosterone and sugars. Discussed that we can try to work on his testosterone at some point but dicussed that my concern is more his sugars and urgently, his trigs. Discussed risks of elevated trigs and pancreatitis. No polyuria or polydipsia. Is drinking a lot of water. Bp is stable. Still with neck pain that started after sleeping on a bad mattress. No issues with his Component Latest Ref Rng & Units 01/15/2023 Protein, Total 6.3 - 8.0 g/dL 6.2 (L) Albumin 3.9 - 4.9 g/dL 4.6 Calcium 8.5 - 10.2 mg/dL 9.3 Bilirubin, Total 0.2 - 1.3 mg/dL 0.3 Alkaline Phosphatase 38 - 113 U/L 70 AST 14 - 40 U/L 26 ALT 10 - 54 U/L 26 Glucose 74 - 99 mg/dL 106 (H) BUN 9 - 24 mg/dL 20 Creatinine 0.73 - 1.22 mg/dL 1.05 Sodium 136 - 144 mmol/L 136 Potassium 3.7 - 5.1 mmol/L 4.5 Chloride 97 - 105 mmol/L 99 CO2 22 - 30 mmol/L 24 Anion Gap 9 - 18 mmol/L 13 eGFR >=60 mL/min/1.73m 93 Cholesterol, Total <200 mg/dL 280 (H) Triglyceride <150 mg/dL 1,598 (H) HDL Cholesterol >39 mg/dL 16 (L) Non HDL Cholesterol <130 mg/dL 264 (H) Fasting Time hrs 13 VLDL Cholesterol TC:HDL Ratio <5.10 17.50 (H) LDL Cholesterol LDL:HDL Ratio T4 5.5 - 10.2 ug/dL 6.6 T4 Uptake 0.91 - 1.19 1.03 FTI 5.3 - 10.8 ug/dL 6.4 Hemoglobin A1C 4.3 - 5.6 % 6.1 (H) Estimated Average Glucose mg/dL 128 TSH 0.270 - 4.200 mIU/L 3.220 LDL Cholesterol, Direct <100 mg/dL 45 MEDICATIONS: Current Outpatient Medications Medication Sig fenofibrate nanocrystallized (TRICOR) 145 mg tablet Take 1 tablet by mouth once daily. lisinopril (ZESTRIL) 10 mg tablet Take 1 tablet by mouth once daily. DULoxetine (CYMBALTA) 60 mg capsule take 1 capsule by mouth once daily FEXOFENADINE HCL (FRED ORAL) Take 1 tablet by mouth as needed. TRIAMCINOLONE ACETONIDE (NASACORT NASAL) Use 2 Sprays in the nose as needed. No current facility-administered medications for this visit. ALLERGIES: ALLERGIES Allergen Reactions Animal Dander Itching cow dander - sneezing, runny nose Dust Itching sneezing, runny nose Dust Mites Itching sneezing, runny nose Grass Pollen Itching and hay -- sneezing, runny nose PAST MEDICAL HISTORY Diagnosis Date Anxiety and depression 02/28/2017 Chews tobacco 07/19/2011 Hypertriglyceridemia 05/22/2017 Low serum testosterone level in male 05/22/2017 Metabolic syndrome 12/15/2020 Primary hypertension 01/04/2021 PAST SURGICAL HISTORY Procedure Laterality Date NONE FAMILY HISTORY Problem Relation Age of Onset None Mother Heart Maternal Grandfather Diabetes Maternal Grandfather Hypertension Father Social History Tobacco Use Smoking status: Former Smokeless tobacco: Former Quit date: 08/08/2018 Tobacco comments: uses snuff Vaping Use Vaping Use: Never used Substance Use Topics Alcohol use: No Drug use: No Reviewed current medications, allergies, past medical history, surgical history, family history andsocial history today. REVIEW OF SYSTEMS All other reviewed and negative other than HPI. HEALTH MAINTENANCE: Reviewed health maintenance issues today and recommended the following in detail. Hepatitis B Vaccine(1 of 3 - 3-dose series) Never done BP Controlled (<130/80) Never done Depression Assessment Never done Influenza Vaccine(1) due on 11/30/2022 Covid-19 Vaccine( season) due on 11/30/2022 VITALS: BP 110/76 Pulse 79 Ht 174 cm (5' 8.5 ) Wt 110.6 kg (243 lb 12.8 oz) SpO2 97% BMI 36.53 kg/m Last 4 Encounter Wt Readings: Date: Wt: 01/14/2023 111.6 kg (246 lb) 09/27/2022 110.7 kg (244 lb) 07/05/2022 109.8 kg (242 lb) 07/02/2022 110.7 kg (244 lb) PHYSICAL EXAMINATION: General appearance: Well appearing, alert, in no acute distress, well-hydrated, well nourished. Skin: Skin color, texture, turgor normal, no suspicious rashes or lesions Head: Normocephalic, no masses, lesions, tenderness or abnormalities Lungs: Lungs clear to auscultation. No wheezing, rhonchi, rales Heart: RRR without murmur, gallop, or rubs. No ectopy Abdomen: Normal abdominal exam, Abdomen soft, non-tender. Bowel sounds normal. No masses, organomegaly Extremities: No deformities, edema, skin discoloration, clubbing or cyanosis. Good capillary refill. ASSESSMENT/PLAN: 1. Primary hypertension - ICD9: 401.9, ICD10: I10 (primary diagnosis) - Controlled - Continue current medications 2. Hypertriglyceridemia - ICD9: 272.1, ICD10: E78.1 - Control undetermined, due for labs Watch diet 3. Prediabetes - ICD9: 790.29, ICD10: R73.03 - stable. - HGB A1C Lupe Saez MD [facility] Miscellaneous Notes* Telephone Encounter - Danielle Feliz MA - 01/17/2023 11:36 AM EDT Patient notified of results, verbalizes understanding of instructions. Also sent patient [facility] message with provider results. Danielle Feliz MA * Telephone Encounter - Lupe Saez MD - 01/17/2023 8:14 AM EDT He is in a prediabetic range. We should be following it every six months. I would limit starches and carbs. His cholesterol total and trigs are very high. Begin tricor and recheck fasting labs in six weeks. Follow up in six months. documented in this encounterOhio[facility]10-16-2023 NoteHNO ID: [id number] Author: Lupe Saez MD Service: ? Author Type: Physician Type: Progress Notes Filed: 01/14/2023 9:45 AM Note Text: Patient presents with: ER F/U HPI: Patient presents today for office visit for ER follow up. HOSPITAL/ER FOLLOW UP: Reason for visit: headache, neck pain Which facility: [facility] Date of visit: 01/04/23 Diagnosis: migraine Testing done: CTA head/neck, chest cta Treatment given: treated in ER with pain meds Current symptoms: still with the pain in his neck and head Denies numbness, tingling, or changes in vision. Takes ibuprofen which helps some. Chiropractor seems to also help some. They were unable to complete some of the labs in ER(d dimer) due to triglycerides. He has had this issue in the past. Has quit drinking soda and watching diet some. Needing to do something about this. Last checked here in 2018. Checked at [facility] 08/12/20 Trigs were 1543. sugars were up as well. He had seen endo who appeared to deal more with his testosterone and sugars. Discussed that we can try to work on his testosterone at some point but dicussed that my concern is more his sugars and urgently, his trigs. Discussed risks of elevated trigs and pancreatitis. No polyuria or polydipsia. Is drinking a lot of water. Bp is stable. Still with neck pain that started after sleeping on a bad mattress. No issues with his MEDICATIONS: Current Outpatient Medications Medication Sig DULoxetine (CYMBALTA) 60 mg capsule take 1 capsule by mouth once daily FEXOFENADINE HCL (FRED ORAL) Take 1 tablet by mouth as needed. lisinopril (ZESTRIL) 10 mg tablet Take 1 tablet by mouth once daily. TRIAMCINOLONE ACETONIDE (NASACORT NASAL) Use 2 Sprays in the nose as needed. No current facility-administered medications for this visit. ALLERGIES: ALLERGIES Allergen Reactions Animal Dander Itching cow dander - sneezing, runny nose Dust Itching sneezing, runny nose Dust Mites Itching sneezing, runny nose Grass Pollen Itching and hay -- sneezing, runny nose PAST MEDICAL HISTORY Diagnosis Date Anxiety and depression 02/28/2017 Chews tobacco 07/19/2011 Hypertriglyceridemia 05/22/2017 Low serum testosterone level in male 05/22/2017 Metabolic syndrome 12/15/2020 Primary hypertension 01/04/2021 PAST SURGICAL HISTORY Procedure Laterality Date NONE FAMILY HISTORY Problem Relation Age of Onset None Mother Heart Maternal Grandfather Diabetes Maternal Grandfather Hypertension Father Social History Tobacco Use Smoking status: Former Smokeless tobacco: Former Quit date: 08/08/2018 Tobacco comments: uses snuff Vaping Use Vaping Use: Never used Substance Use Topics Alcohol use: No Drug use: No Reviewed current medications, allergies, past medical history, surgical history, family history and social history today. REVIEW OF SYSTEMS All other reviewed and negative other than HPI. VITALS: BP 132/88 Pulse 83 Wt 111.6 kg (246 lb) SpO2 95% BMI 36.86 kg/m? Last 4 Encounter Wt Readings: Date: Wt: 09/27/2022 110.7 kg (244 lb) 07/05/2022 109.8 kg (242 lb) 07/02/2022 110.7 kg (244 lb) 05/24/2022 107.8 kg (237 lb 9.6 oz) PHYSICAL EXAMINATION: General appearance: Well appearing, alert, in no acute distress, well-hydrated, well nourished. Skin: Skin color, texture, turgor normal, no suspicious rashes or lesions Head: Normocephalic, no masses, lesions, tenderness or abnormalities Neck: Supple, no adenopathy; thyroid symmetric, normal size, no bruits Lungs: Lungs clear to auscultation. No wheezing, rhonchi, rales Heart: RRR without murmur, gallop, or rubs. No ectopy Abdomen: Normal abdominal exam, Abdomen soft, non-tender. Bowel sounds normal. No masses, organomegaly Extremities: No deformities, edema, skin discoloration, clubbing or cyanosis. Good capillary refill. Musculoskeletal: No joint swelling, deformity, or tenderness Peripheral pulses: Normal Neuro: Gait normal. Reflexes normal and symmetric. Sensation grossly intact. ASSESSMENT/PLAN: 1. Hypertriglyceridemia - ICD9: 272.1, ICD10: E78.1 (primary diagnosis) - get baseline labs, may need meds. Diet may help some - LIPID PANEL BASIC - COMP METABOLIC PANEL - TSH BLD - T4/FTI/T4U 2. Primary hypertension - ICD9: 401.9, ICD10: I10 - Controlled - Continue current medications - TSH BLD - T4/FTI/T4U 3. Metabolic syndrome - ICD9: 277.7, ICD10: E88.810 - may need meds. 4. Hyperglycemia - ICD9: 790.29, ICD10: R73.9 - may need meds. - HGB A1C 5. Neck pain - ICD9: 723.1, ICD10: M54.2 - appears to be musculoskeletal. Red flags for re-assessment reviewed with patient in detail. - XR CERV OTHER 4V AP/LAT/OBL - CONSULT TO PHYSICAL THERAPY Lupe Saez [facility]10-16-2023 History of Present illness Narrative* Lupe Saez MD - 01/14/2023 8:57 AM EDT Patient presents with: ER F/U HPI: Patient presents today for office visit for ER follow up. HOSPITAL/ER FOLLOW UP: Reason for visit: headache, neck pain Which facility: [facility] Date of visit: 01/04/23 Diagnosis: migraine Testing done: CTA head/neck, chest cta Treatment given: treated in ER with pain meds Current symptoms: still with the pain in his neck and head Denies numbness, tingling, or changes in vision. Takes ibuprofen which helps some. Chiropractor seems to also help some. They were unable to complete some of the labs in ER(d dimer) due to triglycerides. He has had this issue in the past. Has quit drinking soda and watching diet some. Needing to do something about this. Last checked here in 2018. Checked at [facility] 08/12/20 Trigs were 1543. sugars were up as well. He had seen endo who appeared to deal more with his testosterone and sugars. Discussed that we can try to work on his testosterone at some point but dicussed that my concern is more his sugars and urgently, his trigs. Discussed risks of elevated trigs and pancreatitis. No polyuria or polydipsia. Is drinking a lot of water. Bp is stable. Still with neck pain that started after sleeping on a bad mattress. No issues with his MEDICATIONS: Current Outpatient Medications Medication Sig DULoxetine (CYMBALTA) 60 mg capsule take 1 capsule by mouth once daily FEXOFENADINE HCL (FRED ORAL) Take 1 tablet by mouth as needed. lisinopril (ZESTRIL) 10 mg tablet Take 1 tablet by mouth once daily. TRIAMCINOLONE ACETONIDE (NASACORT NASAL) Use 2 Sprays in the nose as needed. No current facility-administered medications for this visit. ALLERGIES: ALLERGIES Allergen Reactions Animal Dander Itching cow dander - sneezing, runny nose Dust Itching sneezing, runny nose Dust Mites Itching sneezing, runny nose Grass Pollen Itching and hay -- sneezing, runny nose PAST MEDICAL HISTORY Diagnosis Date Anxiety and depression 02/28/2017 Chews tobacco 07/19/2011 Hypertriglyceridemia 05/22/2017 Low serum testosterone level in male 05/22/2017 Metabolic syndrome 12/15/2020 Primary hypertension 01/04/2021 PAST SURGICAL HISTORY Procedure Laterality Date NONE FAMILY HISTORY Problem Relation Age of Onset None Mother Heart Maternal Grandfather Diabetes Maternal Grandfather Hypertension Father Social History Tobacco Use Smoking status: Former Smokeless tobacco: Former Quit date: 08/08/2018 Tobacco comments: uses snuff Vaping Use Vaping Use: Never used Substance Use Topics Alcohol use: No Drug use: No Reviewed current medications, allergies, past medical history, surgical history, family history andsocial history today. REVIEW OF SYSTEMS All other reviewed and negative other than HPI. VITALS: BP 132/88 Pulse 83 Wt 111.6 kg (246 lb) SpO2 95% BMI 36.86 kg/m Last 4 Encounter Wt Readings: Date: Wt: 09/27/2022 110.7 kg (244 lb) 07/05/2022 109.8 kg (242 lb) 07/02/2022 110.7 kg (244 lb) 05/24/2022 107.8 kg (237 lb 9.6 oz) PHYSICAL EXAMINATION: General appearance: Well appearing, alert, in no acute distress, well-hydrated, well nourished. Skin: Skin color, texture, turgor normal, no suspicious rashes or lesions Head: Normocephalic, no masses, lesions, tenderness or abnormalities Neck: Supple, no adenopathy; thyroid symmetric, normal size, no bruits Lungs: Lungs clear to auscultation. No wheezing, rhonchi, rales Heart: RRR without murmur, gallop, or rubs. No ectopy Abdomen: Normal abdominal exam, Abdomen soft, non-tender. Bowel sounds normal. No masses, organomegaly Extremities: No deformities, edema, skin discoloration, clubbing or cyanosis. Good capillary refill. Musculoskeletal: No joint swelling, deformity, or tenderness Peripheral pulses: Normal Neuro: Gait normal. Reflexes normal and symmetric. Sensation grossly intact. ASSESSMENT/PLAN: 1. Hypertriglyceridemia - ICD9: 272.1, ICD10: E78.1 (primary diagnosis) - get baseline labs, may need meds. Diet may help some - LIPID PANEL BASIC - COMP METABOLIC PANEL - TSH BLD - T4/FTI/T4U 2. Primary hypertension - ICD9: 401.9, ICD10: I10 - Controlled - Continue current medications - TSH BLD - T4/FTI/T4U 3. Metabolic syndrome - ICD9: 277.7, ICD10: E88.810 - may need meds. 4. Hyperglycemia - ICD9: 790.29, ICD10: R73.9 - may need meds. - HGB A1C 5. Neck pain - ICD9: 723.1, ICD10: M54.2 - appears to be musculoskeletal. Red flags for re-assessment reviewed with patient in detail. - XR CERV OTHER 4V AP/LAT/OBL - CONSULT TO PHYSICAL THERAPY Lupe Saez MD documented in this encounterOhio[facility]09-[facility]-2023 Miscellaneous Notes* Telephone Encounter - Lissette Lancaster RN - 12/21/2022 9:06 AM EDT Last Office Visit: 07/05/2022 Future Office Visit: None Requested Prescriptions Pending Prescriptions Disp Refills lisinopril (ZESTRIL) 10 mg tablet 90 tablet 1 Sig: Take 1 tablet by mouth once daily. documented in this encounterOhio[facility]06-29-2023 NoteHNO ID: [id number] Author: Va Whitehead APRN.[employer] Service: ? Author Type: Nurse Practitioner Type: Progress Notes Filed: 09/27/2022 4:14 PM Note Text: CC: Patient presents with: Sinus Problem: Sinus congestion and QUINN x 3 weeks HPI: Javed Joseph is a 37 year old male who presents to the office with complaint of head congestion and sinus symptoms for 3 weeks. Symptoms are worsening Associated symptoms includes nasal congestion and facial pain/pressure. Denies fever, nausea, vomiting , and diarrhea. Treatments tried include OTC cold medicine and Pseudoephedrine with no relief of symptoms. Sick contacts: unknown. History of asthma, frequent episodes of bronchitis, chronic bronchitis, bronchiectasis or COPD: No Smoker: No Seasonal/environmental allergies: No The ROS is otherwise negative. The patient's pmh, medications, allergies, and past visits are reviewed. PHYSICAL EXAM: BP 126/74 Pulse 107 Temp 36.1 ?C (97 ?F) (Tympanic) Resp 16 Wt 110.7 kg (244 lb) SpO2 96% BMI 36.56 kg/m? General appearance: alert, cooperative, pleasant, in no acute distress Head: Normocephalic Eyes: EOM's intact, conjunctiva pink and moist, no icterus, sclera white, non-injected Ears: Right ear: External ear/canal- Normal, TM - clear with good landmarks. Left ear: External ear/canal- Normal, TM - clear with good landmarks Oropharynx:moist without lesions, No erythema, exudates or tonsillar hypertrophy. Heart: Negative. RRR without obvious murmur, gallop, or rubs. No ectopy. Lungs: clear to auscultation, without rales or wheeze, good air exchange PAST MEDICAL HISTORY Diagnosis Date Anxiety and depression 02/28/2017 Chews tobacco 07/19/2011 Hypertriglyceridemia 05/22/2017 Low serum testosterone level in male 05/22/2017 Metabolic syndrome 12/15/2020 Primary hypertension 01/04/2021 PAST SURGICAL HISTORY Procedure Laterality Date NONE ALLERGIES Animal Dander, Dust, Dust Mites, and Grass Pollen MEDICATIONS DULoxetine (CYMBALTA) 60 mg capsule take 1 capsule by mouth once daily lisinopril (ZESTRIL) 10 mg tablet Take 1 tablet by mouth once daily. FEXOFENADINE HCL (FRED ORAL) Take 1 tablet by mouth as needed. TRIAMCINOLONE ACETONIDE (NASACORT NASAL) Use 2 Sprays in the nose as needed. FAMILY HISTORY Problem Relation Age of Onset None Mother Heart Maternal Grandfather Diabetes Maternal Grandfather Hypertension Father Social History Tobacco Use Smoking status: Former Smokeless tobacco: Former Quit date: 08/08/2018 Tobacco comments: uses snuff Vaping Use Vaping Use: Never used Substance Use Topics Alcohol use: No Drug use: No ASSESSMENT/PLAN: 1. Rhinosinusitis - ICD9: 473.9, ICD10: J31.0, J32.9 - DOXYCYCLINE MONOHYDRATE 100 MG TABLET Prescription instructions reviewed with patient as applicable. Potential red flag symptoms discussed with the patient. Reviewed appropriate action plan to take if red flag symptoms occur. Patient agreeable to treatment plan. Va Whitehead APRN.[facility]06-29-2023 History of Present illness Narrative* Va Whitehead APRN.[employer] - 09/27/2022 4:06 PM EDT CC: Patient presents with: Sinus Problem: Sinus congestion and QUINN x 3 weeks HPI: Javed Joseph is a 37 year old male who presents to the office with complaint of head congestion and sinus symptoms for 3 weeks. Symptoms are worsening Associated symptoms includes nasal congestion and facial pain/pressure. Denies fever, nausea, vomiting , and diarrhea. Treatments tried include OTC cold medicine and Pseudoephedrine with no relief of symptoms. Sick contacts: unknown. History of asthma, frequent episodes of bronchitis, chronic bronchitis, bronchiectasis or COPD: No Smoker: No Seasonal/environmental allergies: No The ROS is otherwise negative. The patient's pmh, medications, allergies, and past visits are reviewed. PHYSICAL EXAM: BP 126/74 Pulse 107 Temp 36.1 C (97 F) (Tympanic) Resp 16 Wt 110.7 kg (244 lb) SpO2 96% BMI 36.56 kg/m General appearance: alert, cooperative, pleasant, in no acute distress Head: Normocephalic Eyes: EOM's intact, conjunctiva pink and moist, no icterus, sclera white, non-injected Ears: Right ear: External ear/canal- Normal, TM - clear with good landmarks. Left ear: External ear/canal- Normal, TM - clear with good landmarks Oropharynx:moist without lesions, No erythema, exudates or tonsillar hypertrophy. Heart: Negative. RRR without obvious murmur, gallop, or rubs. No ectopy. Lungs: clear to auscultation, without rales or wheeze, good air exchange PAST MEDICAL HISTORY Diagnosis Date Anxiety and depression 02/28/2017 Chews tobacco 07/19/2011 Hypertriglyceridemia 05/22/2017 Low serum testosterone level in male 05/22/2017 Metabolic syndrome 12/15/2020 Primary hypertension 01/04/2021 PAST SURGICAL HISTORY Procedure Laterality Date NONE ALLERGIES Animal Dander, Dust, Dust Mites, and Grass Pollen MEDICATIONS DULoxetine (CYMBALTA) 60 mg capsule take 1 capsule by mouth once daily lisinopril (ZESTRIL) 10 mg tablet Take 1 tablet by mouth once daily. FEXOFENADINE HCL (FRED ORAL) Take 1 tablet by mouth as needed. TRIAMCINOLONE ACETONIDE (NASACORT NASAL) Use 2 Sprays in the nose as needed. FAMILY HISTORY Problem Relation Age of Onset None Mother Heart Maternal Grandfather Diabetes Maternal Grandfather Hypertension Father Social History Tobacco Use Smoking status: Former Smokeless tobacco: Former Quit date: 08/08/2018 Tobacco comments: uses snuff Vaping Use Vaping Use: Never used Substance Use Topics Alcohol use: No Drug use: No ASSESSMENT/PLAN: 1. Rhinosinusitis - ICD9: 473.9, ICD10: J31.0, J32.9 - DOXYCYCLINE MONOHYDRATE 100 MG TABLET Prescription instructions reviewed with patient as applicable. Potential red flag symptoms discussed with the patient. Reviewed appropriate action plan to take if red flag symptoms occur. Patient agreeable to treatment plan. Va Whitehead APRN.SUSIE documented in this encounterOhio[facility] NoteHNO ID: [id number] Author: Lupe Saez MD Service: ? Author Type: Physician Type: Progress Notes Filed: 07/05/2022 11:43 AM Note Text: Patient presents with: Sore Throat: + strep not getting better with ATB HPI: Patient presents today for office visit for follow up. ENT:Patient complains of sore throat. Cough: No. Congestion: No. Ear pain: Yes. Swallowing difficulties: Yes. Exposure to anyone with strep:tested positive for strep 07/02/22. Others in house also have had it but they are better. Fever: No. No drooling. No hot potato voice. Some swollen glands. See previous ov at urgent care: HPI: Feeling sore throat for a few days. Positive symptoms: sore throat, Negative symptoms: Cough, Nasal Congestion, Rhinorrhea, Fever, Vomiting, Diarrhea, OTC: Ibuprofen, Tylenol. Treated with Augmentin for sinusitis 1 1/2 weeks ago. MEDICATIONS: Current Outpatient Medications Medication Sig Amoxicillin 500 mg tablet Take 1 tablet by mouth twice daily for 10 days. lisinopril (ZESTRIL) 10 mg tablet Take 1 tablet by mouth once daily. DULoxetine (CYMBALTA) 60 mg capsule Take 1 capsule by mouth once daily. FEXOFENADINE HCL (FRED ORAL) Take 1 tablet by mouth as needed. TRIAMCINOLONE ACETONIDE (NASACORT NASAL) Use 2 Sprays in the nose as needed. No current facility-administered medications for this visit. ALLERGIES: ALLERGIES Allergen Reactions Animal Dander Itching cow dander - sneezing, runny nose Dust Itching sneezing, runny nose Dust Mites Itching sneezing, runny nose Grass Pollen Itching and hay -- sneezing, runny nose PAST MEDICAL HISTORY Diagnosis Date Anxiety and depression 02/28/2017 Chews tobacco 07/19/2011 Hypertriglyceridemia 05/22/2017 Low serum testosterone level in male 05/22/2017 Metabolic syndrome 12/15/2020 Primary hypertension 01/04/2021 PAST SURGICAL HISTORY Procedure Laterality Date NONE FAMILY HISTORY Problem Relation Age of Onset None Mother Heart Maternal Grandfather Diabetes Maternal Grandfather Hypertension Father Social History Tobacco Use Smoking status: Former Smokeless tobacco: Former Quit date: 08/08/2018 Tobacco comments: uses snuff Vaping Use Vaping Use: Never used Substance Use Topics Alcohol use: No Drug use: No Reviewed current medications, allergies, past medical history, surgical history, family history and social history today. REVIEW OF SYSTEMS All other reviewed and negative other than HPI. VITALS: BP 124/82 Pulse 106 Temp 36.3 ?C (97.3 ?F) (Tympanic) Wt 109.8 kg (242 lb) SpO2 95% BMI 36.26 kg/m? Last 4 Encounter Wt Readings: Date: Wt: 07/02/2022 110.7 kg (244 lb) 05/24/2022 107.8 kg (237 lb 9.6 oz) 01/25/2022 107 kg (235 lb 12.8 oz) 12/28/2021 107.1 kg (236 lb 3.2 oz) PHYSICAL EXAMINATION: General appearance: Well appearing, alert, in no acute distress, well-hydrated, well nourished. Skin: Skin color, texture, turgor normal, no suspicious rashes or lesions Head: Normocephalic, no masses, lesions, tenderness or abnormalities Eyes: Anicteric sclera. Pupils are equally round and reactive to light. Extraocular movements are intact. Ears: External ears normal, canals clear Nose/Sinuses: Nares normal, septum midline, mucosa normal, no drainage or sinus tenderness Oropharynx: Lips, mucosa, and tongue normal, teeth and gums normal, mild erythema of throat. No exudate. Uvula midline. No masses Lungs: Lungs clear to auscultation. No wheezing, rhonchi, rales Heart: RRR without murmur, gallop, or rubs. No ectopy ASSESSMENT/PLAN: 1. Pharyngitis due to Streptococcus species - ICD9: 034.0, ICD10: J02.0 - discussed amoxil should usually cover but will change to cefzil. Discussed symptomatic relief. Too early in course to check for things like mono etc. Discussed risks and benefits of new medication with the patient. Advised them to call if any side effects or questions. Red flags for re-assessment reviewed with patient in detail. Call if symptoms worsen at all or if not better in one to two weeks Reviewed diagnosis and treatment options in detail. Questions were answered. Patient expressed understanding of treatment plan. Lupe Saez [facility]04-06-2023 History of Present illness Narrative* Lupe Saez MD - 07/05/2022 11:23 AM EDT Patient presents with: Sore Throat: + strep not getting better with ATB HPI: Patient presents today for office visit for follow up. ENT:Patient complains of sore throat. Cough: No. Congestion: No. Ear pain: Yes. Swallowing difficulties: Yes. Exposure to anyone with strep:tested positive for strep 07/02/22. Others in house also have had it but they are better. Fever: No. No drooling. No hot potato voice. Some swollen glands. See previous ov at urgent care: HPI: Feeling sore throat for a few days. Positive symptoms: sore throat, Negative symptoms: Cough, Nasal Congestion, Rhinorrhea, Fever, Vomiting, Diarrhea, OTC: Ibuprofen, Tylenol. Treated with Augmentin for sinusitis 1 1/2 weeks ago. MEDICATIONS: Current Outpatient Medications Medication Sig Amoxicillin 500 mg tablet Take 1 tablet by mouth twice daily for 10 days. lisinopril (ZESTRIL) 10 mg tablet Take 1 tablet by mouth once daily. DULoxetine (CYMBALTA) 60 mg capsule Take 1 capsule by mouth once daily. FEXOFENADINE HCL (FRED ORAL) Take 1 tablet by mouth as needed. TRIAMCINOLONE ACETONIDE (NASACORT NASAL) Use 2 Sprays in the nose as needed. No current facility-administered medications for this visit. ALLERGIES: ALLERGIES Allergen Reactions Animal Dander Itching cow dander - sneezing, runny nose Dust Itching sneezing, runny nose Dust Mites Itching sneezing, runny nose Grass Pollen Itching and hay -- sneezing, runny nose PAST MEDICAL HISTORY Diagnosis Date Anxiety and depression 02/28/2017 Chews tobacco 07/19/2011 Hypertriglyceridemia 05/22/2017 Low serum testosterone level in male 05/22/2017 Metabolic syndrome 12/15/2020 Primary hypertension 01/04/2021 PAST SURGICAL HISTORY Procedure Laterality Date NONE FAMILY HISTORY Problem Relation Age of Onset None Mother Heart Maternal Grandfather Diabetes Maternal Grandfather Hypertension Father Social History Tobacco Use Smoking status: Former Smokeless tobacco: Former Quit date: 08/08/2018 Tobacco comments: uses snuff Vaping Use Vaping Use: Never used Substance Use Topics Alcohol use: No Drug use: No Reviewed current medications, allergies, past medical history, surgical history, family history andsocial history today. REVIEW OF SYSTEMS All other reviewed and negative other than HPI. VITALS: BP 124/82 Pulse 106 Temp 36.3 C (97.3 F) (Tympanic) Wt 109.8 kg (242 lb) SpO2 95% BMI 36.26 kg/m Last 4 Encounter Wt Readings: Date: Wt: 07/02/2022 110.7 kg (244 lb) 05/24/2022 107.8 kg (237 lb 9.6 oz) 01/25/2022 107 kg (235 lb 12.8 oz) 12/28/2021 107.1 kg (236 lb 3.2 oz) PHYSICAL EXAMINATION: General appearance: Well appearing, alert, in no acute distress, well-hydrated, well nourished. Skin: Skin color, texture, turgor normal, no suspicious rashes or lesions Head: Normocephalic, no masses, lesions, tenderness or abnormalities Eyes: Anicteric sclera. Pupils are equally round and reactive to light. Extraocular movements are intact. Ears: External ears normal, canals clear Nose/Sinuses: Nares normal, septum midline, mucosa normal, no drainage or sinus tenderness Oropharynx: Lips, mucosa, and tongue normal, teeth and gums normal, mild erythema of throat. No exudate. Uvula midline. No masses Lungs: Lungs clear to auscultation. No wheezing, rhonchi, rales Heart: RRR without murmur, gallop, or rubs. No ectopy ASSESSMENT/PLAN: 1. Pharyngitis due to Streptococcus species - ICD9: 034.0, ICD10: J02.0 - discussed amoxil should usually cover but will change to cefzil. Discussed symptomatic relief. Too early in course to check for things like mono etc. Discussed risks and benefits of new medication with the patient. Advised them to call if any side effects or questions. Red flags for re-assessment reviewed with patient in detail. Call if symptoms worsen at all or if not better in one to two weeks Reviewed diagnosis and treatment options in detail. Questions were answered. Patient expressed understanding of treatment plan. Lupe Saez MD documented in this encounterOhio[facility]04-03-2023 NoteHNO ID: [id number] Author: Tony Simmons MD Service: ? Author Type: Physician Type: Progress Notes Filed: 07/02/2022 3:23 PM Note Text: Patient presents with: Sore Throat: X3 days HPI: Feeling sore throat for a few days. Positive symptoms: sore throat, Negative symptoms: Cough, Nasal Congestion, Rhinorrhea, Fever, Vomiting, Diarrhea, OTC: Ibuprofen, Tylenol. Treated with Augmentin for sinusitis 1 1/2 weeks ago. MEDICATIONS: Current Outpatient Medications Medication Sig lisinopril (ZESTRIL) 10 mg tablet Take 1 tablet by mouth once daily. DULoxetine (CYMBALTA) 60 mg capsule Take 1 capsule by mouth once daily. FEXOFENADINE HCL (FRED ORAL) Take 1 tablet by mouth as needed. TRIAMCINOLONE ACETONIDE (NASACORT NASAL) Use 2 Sprays in the nose as needed. No current facility-administered medications for this visit. ALLERGIES: ALLERGIES Allergen Reactions Animal Dander Itching cow dander - sneezing, runny nose Dust Itching sneezing, runny nose Dust Mites Itching sneezing, runny nose Grass Pollen Itching and hay -- sneezing, runny nose VITALS: BP 122/80 Pulse 97 Temp 36.6 ?C (97.8 ?F) Resp 18 Wt 110.7 kg (244 lb) SpO2 97% BMI 36.56 kg/m? PHYSICAL EXAM: GEN: mildly ill appearing HEENT: PERRL, EOMI, conjunctiva clear Ears: canals clear. TMs without erythema, bulge, or effusion Sinuses: non-tender frontal sinus, non-tender maxillary sinuses Throat: moist mucous membranes, pharyngeal erythema, thick raspy voice Neck: supple, no thyromegaly, anterior chain tenderness without discrete lymphadenopathy HEART: regular rate and rhythm, no murmurs LUNGS: clear to auscultation, no wheezes or crackles, no increased WOB ASSESSMENT/PLAN: 1. Streptococcal pharyngitis - ICD9: 034.0, ICD10: J02.0 (primary diagnosis) 2. Sore throat - ICD9: 462, ICD10: J02.9 - Alere Strep Test positive - Discussed supportive care treatment with as needed analgesia. - Contagious disease precautions discussed- including considered contagious until on antibiotics for 24 hours - STREP A MOLECULAR (POC) - AMOXICILLIN 500 MG TABLET Tony Simmons [facility]04-03-2023 History of Present illness Narrative* Tony Simmons MD - 07/02/2022 3:14 PM EDT Patient presents with: Sore Throat: X3 days HPI: Feeling sore throat for a few days. Positive symptoms: sore throat, Negative symptoms: Cough, Nasal Congestion, Rhinorrhea, Fever, Vomiting, Diarrhea, OTC: Ibuprofen, Tylenol. Treated with Augmentin for sinusitis 1 1/2 weeks ago. MEDICATIONS: Current Outpatient Medications Medication Sig lisinopril (ZESTRIL) 10 mg tablet Take 1 tablet by mouth once daily. DULoxetine (CYMBALTA) 60 mg capsule Take 1 capsule by mouth once daily. FEXOFENADINE HCL (FRED ORAL) Take 1 tablet by mouth as needed. TRIAMCINOLONE ACETONIDE (NASACORT NASAL) Use 2 Sprays in the nose as needed. No current facility-administered medications for this visit. ALLERGIES: ALLERGIES Allergen Reactions Animal Dander Itching cow dander - sneezing, runny nose Dust Itching sneezing, runny nose Dust Mites Itching sneezing, runny nose Grass Pollen Itching and hay -- sneezing, runny nose VITALS: BP 122/80 Pulse 97 Temp 36.6 C (97.8 F) Resp 18 Wt 110.7 kg (244 lb) SpO2 97% BMI 36.56kg/m PHYSICAL EXAM: GEN: mildly ill appearing HEENT: PERRL, EOMI, conjunctiva clear Ears: canals clear. TMs without erythema, bulge, or effusion Sinuses: non-tender frontal sinus, non-tender maxillary sinuses Throat: moist mucous membranes, pharyngeal erythema, thick raspy voice Neck: supple, no thyromegaly, anterior chain tenderness without discrete lymphadenopathy HEART: regular rate and rhythm, no murmurs LUNGS: clear to auscultation, no wheezes or crackles, no increased WOB ASSESSMENT/PLAN: 1. Streptococcal pharyngitis - ICD9: 034.0, ICD10: J02.0 (primary diagnosis) 2. Sore throat - ICD9: 462, ICD10: J02.9 - Alere Strep Test positive - Discussed supportive care treatment with as needed analgesia. - Contagious disease precautions discussed- including considered contagious until on antibiotics for 24 hours - STREP A MOLECULAR (POC) - AMOXICILLIN 500 MG TABLET Tony Simmons MD documented in this encounterOhio[facility]02-23-2023 NoteHNO ID: [id number] Author: GUADALUPE Rivera Service: ? Author Type: Physician Hard Candy Batch Mixer Type: Progress Notes Filed: 05/24/2022 7:59 PM Note Text: This note was created using NoteWriter. Subjective Javed Joseph is a 37 year old male. HPI 37-year-old male presents for sinus congestion, mild cough, headache times greater than 1 week. Patient states that for over a week now he has been having a lot of sinus congestion, sinus pressure, runny nose. He did have a cough, but that is now resolved. He denies any fevers. No vomiting. No sick contacts that he is aware of. PAST MEDICAL HISTORY Diagnosis Date Anxiety and depression 02/28/2017 Chews tobacco 07/19/2011 Hypertriglyceridemia 05/22/2017 Low serum testosterone level in male 05/22/2017 Metabolic syndrome 12/15/2020 Primary hypertension 01/04/2021 PAST SURGICAL HISTORY Procedure Laterality Date NONE ALLERGIES Animal Dander, Dust, Dust Mites, and Grass Pollen MEDICATIONS lisinopril (ZESTRIL, PRINIVIL) 10 mg tablet Take 1 tablet by mouth once daily. DULoxetine (CYMBALTA) 60 mg capsule Take 1 capsule by mouth once daily. FEXOFENADINE HCL (FRED ORAL) Take 1 tablet by mouth as needed. TRIAMCINOLONE ACETONIDE (NASACORT NASAL) Use 2 Sprays in the nose as needed. amoxicillin-clavulanic acid (AUGMENTIN) 875-125 mg per tablet Take 1 tablet by mouth twice daily for 5 days. FAMILY HISTORY Problem Relation Age of Onset None Mother Heart Maternal Grandfather Diabetes Maternal Grandfather Hypertension Father Social History Tobacco Use Smoking status: Former Smokeless tobacco: Former Quit date: 08/08/2018 Tobacco comments: uses snuff Vaping Use Vaping Use: Never used Substance Use Topics Alcohol use: No Drug use: No Review of Systems Constitutional: Negative for chills and fever. HENT: Positive for congestion, sinus pressure and sinus pain. Negative for sore throat. Respiratory: Positive for cough. Negative for shortness of breath. Gastrointestinal: Negative for diarrhea and vomiting. Neurological: Positive for headaches. Objective BP 122/82 Pulse 90 Temp 36.7 ?C (98.1 ?F) (Tympanic) Resp 16 Wt 107.8 kg (237 lb 9.6 oz) SpO2 96% BMI 35.60 kg/m? Physical Exam Vitals and nursing note reviewed. Constitutional: General: He is not in acute distress. Appearance: Normal appearance. He is not toxic-appearing. HENT: Nose: Congestion present. Right Sinus: Maxillary sinus tenderness present. Left Sinus: Maxillary sinus tenderness present. Mouth/Throat: Mouth: Mucous membranes are moist. Eyes: Conjunctiva/sclera: Conjunctivae normal. Cardiovascular: Rate and Rhythm: Normal rate and regular rhythm. Pulmonary: Effort: Pulmonary effort is normal. Breath sounds: Normal breath sounds. Skin: General: Skin is warm and dry. Neurological: Mental Status: He is alert. Assessment and Plan ASSESSMENT/PLAN: 1. Bacterial sinusitis - ICD9: 473.9, 041.9, ICD10: J32.9, B96.89 - symptoms x 8 days. - Will begin treatment with Augmentin 875 mg PO BID for 5 days - Supportive care with plenty of fluids, rest, and analgesia prn. -Declines COVID/flu swab Diagnosis and treatment plan were discussed and questions were answered to the patient's satisfaction. Pt acknowledged understanding of concepts and follow up plan. Specific signs and symptoms that would indicate the need for higher level of care were discussed in detail warranting prompt ER evaluation. Alix Browning, [facility]10-27-2022 History of Present illness Narrative* Virginia Aviles APRN.CNP - 01/25/2022 6:15 PM EDT 36 year old male with PMH HTN and hypertriglyceridemia presents for left calf pain Acute onset 3 days ago Locates tight and cramping In left lower leg Denies trauma or injury Denies fever or chills Denies skin rash or lesions Denies prior history of same. Discussed with patient concerns for DVT. Unable to obtain US at time of exam. Sent to ED for further management. documented in this encounterOhio[facility]09-19-2022 History of Present illness Narrative* Lupe Saez MD - 12/18/2021 7:04 PM EDT Patient presents with: Hypertension HPI: Patient presents today for office visit for HTN: Patient is compliant with meds Yes Monitors bp at home: Yes. Denies side effects: No. Chest pain: No. Dyspnea: No. Edema: No. Palpitations: Yes. Associated with his anxiety. Syncope: No. Headache: No. Dizziness: No. Took bp at home the last few weeks. Before he took bp meds and he felt hot all the time and was getting headaches. Seems to be doing the same things. Home bp has been higher even at home. Cymbalta has been good. Did better than anything else he has been on. Had a hx of mildly elevated glucose. Did see Dr Verduzco previously for ? Low testosterone. She did not think it was significant. MEDICATIONS: Current Outpatient Medications Medication Sig DULoxetine (CYMBALTA) 60 mg capsule Take 1 capsule by mouth once daily. lisinopril (ZESTRIL, PRINIVIL) 5 mg tablet Take 1 tablet by mouth once daily. FEXOFENADINE HCL (FRED ORAL) Take 1 tablet by mouth as needed. TRIAMCINOLONE ACETONIDE (NASACORT NASAL) Use 2 Sprays in the nose as needed. No current facility-administered medications for this visit. ALLERGIES: ALLERGIES Allergen Reactions Animal Dander Itching cow dander - sneezing, runny nose Dust Itching sneezing, runny nose Dust Mites Itching sneezing, runny nose Grass Pollen Itching and hay -- sneezing, runny nose PAST MEDICAL HISTORY Diagnosis Date Anxiety and depression 02/28/2017 Chews tobacco 07/19/2011 Hypertriglyceridemia 05/22/2017 Low serum testosterone level in male 05/22/2017 Metabolic syndrome 12/15/2020 Primary hypertension 01/04/2021 PAST SURGICAL HISTORY Procedure Laterality Date NONE FAMILY HISTORY Problem Relation Age of Onset None Mother Heart Maternal Grandfather Diabetes Maternal Grandfather Hypertension Father Social History Tobacco Use Smoking status: Former Smokeless tobacco: Former Quit date: 08/08/2018 Tobacco comments: uses snuff Vaping Use Vaping Use: Never used Substance Use Topics Alcohol use: No Drug use: No Reviewed current medications, allergies, past medical history, surgical history, family history andsocial history today. REVIEW OF SYSTEMS All other reviewed and negative other than HPI. HEALTH MAINTENANCE: Reviewed health maintenance issues today VITALS: BP 142/98 Pulse 104 Wt 106.1 kg (234 lb) BMI 35.06 kg/m Last 4 Encounter Wt Readings: Date: Wt: 12/18/2021 106.1 kg (234 lb) 07/31/2021 106.1 kg (234 lb) 05/01/2021 105.7 kg (233 lb) 01/04/2021 104.3 kg (230 lb) PHYSICAL EXAMINATION: General appearance: Well appearing, alert, in no acute distress, well-hydrated, well nourished. Skin: Skin color, texture, turgor normal, no suspicious rashes or lesions Head: Normocephalic, no masses, lesions, tenderness or abnormalities Neck: Supple, no adenopathy Lungs: Lungs clear to auscultation. No wheezing, rhonchi, rales Heart: RRR without murmur, gallop, or rubs. No ectopy Abdomen: Normal abdominal exam, Abdomen soft, non-tender. Bowel sounds normal. No masses, organomegaly Extremities: No deformities, edema, skin discoloration, clubbing or cyanosis. Good capillary refill. ASSESSMENT/PLAN: 1. Primary hypertension - ICD9: 401.9, ICD10: I10 (primary diagnosis) - increase lisinopril to 10 mg a day. Follow closely. If symptoms of flushing etc persist, may consider further work up - CBC + DIFF - COMP METABOLIC PANEL 2. Hypertriglyceridemia - ICD9: 272.1, ICD10: E78.1 - check labs. Watch diet. - COMP METABOLIC PANEL - LIPID PANEL BASIC 3. Anxiety and depression - ICD9: 300.00, 311, ICD10: F41.9, F32.A - continue meds. - TSH BLD 4. Hyperglycemia - ICD9: 790.29, ICD10: R73.9 - watch diet. - HGB A1C Lupe Saez MD documented in this encounterOhio[facility]06-03-2022 History of Present illness Narrative* Bayron Engel APRN.SUSIE, ROMAN - 09/01/2021 1:40 PM EDT Chief Complaint Patient presents with: Follow Up Anxiety This Team Access Model encounter involved medical decision making outside of a scheduled office visit. Patient was offered a virtual/telemedicine appointment in lieu of an office visit due to recommendations to reduce patient exposure to COVID-19. Patient agrees to the visit: Yes Patient Location: [facility] Javed Joseph is a 36 year old male who presents here today for follow up appt. This is an established patient of Bayron Engel APRN.SUSIE, DNP. Denies any recent ER visits or hospitalizations. Panic attack/MIRTA: History of panic attacks and mild anxiety. Previously on Celexa and currently on Cymbalta. Cymbalta has been titrated gradually up to 60 mg. We tried to decrease the Cymbalta due tosome side effects of insomnia and libido but he was not able to tolerate this. Increase Cymbalta from 50 mg to 60 mg which controls his anxiety. He was having some mild side effects so we discussed about transitioning him to Prozac and weaning him off Cymbalta. Patient was planning on doing that but started to wean down to 30 mg of Cymbalta and noticed a significant difference. Had second thoughts and decided he wanted to stay on Cymbalta 60 mg. He read titrated back up to 60 mg. He is content w ith his current dosing. Does not want to start Prozac. Both are manageable. Otherwise feeling well.No depression. Blood pressure: Blood pressures been controlled. Currently on lisinopril 5 mg. Denies chest pain, shortness of breath or difficulty breathing. Otherwise feels fine. Recently seen in urgent care 1 month ago on blood pressure was less than 130/90. Past medical history, appointments, medications, allergies reviewed 09/01/2021 Previous Medical History PAST MEDICAL HISTORY Diagnosis Date Anxiety and depression 02/28/2017 Chews tobacco 07/19/2011 Hypertriglyceridemia 05/22/2017 Low serum testosterone level in male 05/22/2017 Metabolic syndrome 12/15/2020 Primary hypertension 01/04/2021 Previous Surgical History PAST SURGICAL HISTORY Procedure Laterality Date NONE Family History FAMILY HISTORY Problem Relation Age of Onset None Mother Heart Maternal Grandfather Diabetes Maternal Grandfather Hypertension Father Patient Allergies ALLERGIES Allergen Reactions Animal Dander Itching cow dander - sneezing, runny nose Dust Itching sneezing, runny nose Dust Mites Itching sneezing, runny nose Grass Pollen Itching and hay -- sneezing, runny nose Current Medications Current Outpatient Medications on File Prior to Visit Medication Sig DULoxetine (CYMBALTA) 60 mg capsule take 1 capsule by mouth once daily LORazepam (ATIVAN) 1 mg tablet Take 1 tablet by mouth twice daily as needed for Anxiety for up to 30 days. FEXOFENADINE HCL (FRED ORAL) Take 1 tablet by mouth as needed. TRIAMCINOLONE ACETONIDE (NASACORT NASAL) Use 2 Sprays in the nose as needed. No current facility-administered medications on file prior to visit. Social History Social History Tobacco Use Smoking status: Former Smoker Smokeless tobacco: Former User Quit date: 08/08/2018 Tobacco comment: uses snuff Vaping Use Vaping Use: Never used Substance Use Topics Alcohol use: No Drug use: No Review of Symptoms GENERAL: No weight loss, malaise or fevers. PSYCH: No SI or HI. EXAM: There were no vitals taken for this visit. Virtual visit completed using video, limited exam completed. Patient sounds or appears ill: No General Appearance: Well appearing, alert, in no acute distress, well-hydrated, well nourished. Skin: Skin color normal Head: Normocephalic. No facial swelling or redness. EENT: Eyes nonreddened. No discharge. Neck: No mass or lesions. No swelling. FROM Patient is not able to speak in complete sentences: No Patient has labored breathing: No. Patient is audibly coughing: No Psych: Attitude - cooperative, easily engaged in conversation Affect - Euthymic, normal mood Mental status: Alert. Speech is clear and fluent with good repetition, comprehension Appearance - Normal hygiene and grooming appropriate Coordination: No abnormal or extraneous movements. Gait/Stance: Posture is normal. Health Maintenance List HEPATITIS C SCREENING due on 2001 HIV SCREENING due on 2001 ONE PNEUMOVAX PRIOR TO AGE 65 due on 2002 INFLUENZA(1) due on 09/28/2020 LIPID SCREEN due on 05/18/2022 DTAP,TDAP,TD(3 - Td) due on 01/03/2029 MENINGOCOCCAL CONJUGATE Completed Data reviewed Last 5 Encounter BP Readings: Date: BP: 07/31/2021 124/90 05/01/2021 136/80 01/04/2021 144/86 12/28/2020 150/92 07/14/2020 140/90 BMI Readings from Last 5 Encounters: 07/31/21 : 35.06 kg/m 05/01/21 : 34.91 kg/m 01/04/21 : 34.46 kg/m 12/28/20 : 34.61 kg/m 07/14/20 : 33.71 kg/m Last 5 Encounter Wt Readings: Date: Wt: 07/31/2021 106.1 kg (234 lb) 05/01/2021 105.7 kg (233 lb) 01/04/2021 104.3 kg (230 lb) 12/28/2020 104.8 kg (231 lb) 07/14/2020 102.1 kg (225 lb) Medication and allergy list reviewed, reconciled and updated 09/01/2021 ASSESSMENT/PLAN: 1. Panic disorder - ICD9: 300.01, ICD10: F41.0 (primary diagnosis) MDM: Shared decision making made to continue with Cymbalta. - F/u in 3 months Recommend: Working to reduce overall frequency, intensity, and duration of anxiety so that daily functioning is not impaired. Learn and implement coping skills that result in a reduction of anxiety and worry, and improved daily functioning. Discussed sleep hygiene and importance of sleep. Use of social support system for depressive feelings F/u with Behavioral Health Counselor or Therapist as needed Discussed safety plan: That includes ER, 911 and Crisis hotline # [phone] If symptoms worsen return to clinic or initiate safety plan - DULOXETINE 60 MG CAPSULE,DELAYED RELEASE 2. Anxiety and depression - ICD9: 300.00, 311, ICD10: F41.9, F32.A Plan as above. - DULOXETINE 60 MG CAPSULE,DELAYED RELEASE 2. Hypertension, essential - ICD9: 401.9, ICD10: I10 Controlled blood pressure. Continue to strive towards healthy diet and regular physical activity - Encouraged dietary sodium restriction/DASH diet - Recommended regular aerobic exercise. - Recommend home blood pressure monitoring, to bring results in on next visit - Encouraged avoidance of excessive alcohol intake - Discussed need and benefit for weight loss. - F/u in 3 months - Goal of BP <130/80 - CMP 3. Obesity, Class I, BMI 30-34.9 - ICD9: 278.00, ICD10: E66.9 Chronic and stable weight, with mild increase Recommend regular physical activity, nutrition and healthy eating habits. Consume a variety of foods every day focusing on fruits, vegetables and lean meats). Eat foods low in fat, saturated fat and cholesterol. Eat a limited amount of salt and sodium. Drink adequate amounts of water and limit sugary drinks. Exercise portion control in meal selection. Establish a mindset of a wellness approach to health. 4. Metabolic syndrome - ICD9: 277.7, ICD10: E88.81 - poor control. Counseled on diet, physical activity and medication options. - Begin treatment with diet and exercise and fish oil sup daily - Encouraged following a low fat, low cholesterol diet. - Discussed the benefits of regular aerobic exercise and weight loss. - Encouraged following a low carbohydrate, healthy oil intake diet. - F/u in 3 months Plan: Check lipids and CMP Bayron Engel DNP.SUSIE This note was completed with [employer] dictation software. Note was reviewed for accuracy. There may be minor misspellings or grammar miscues with [employer] Dictation. I spent a total of 21 minutes on the date of the service which included preparing to see the patient, [id number] patient care, completing clinical documentation, performing a medically appropriate examination, counseling and educating the patient/family/caregiver and ordering medications, tests, or procedures. [place] [id number] [place] [id number] This note was copied from previous note and exam dated 04/03/21. Author is Bayron Engel DNP.SUSIE note reviewed and changes have been made or updates noted in the copy & paste portion of an encounter. documented in this encounter[facility] History of Present illness Narrative* Bayron Engel APRN.CNP, DNP - 08/31/2021 10:08 AM EDT Patient was driving in his car. Unable to complete visit. No charge of visit. Staff will call to reschedule. ASSESSMENT/PLAN: 1. APPOINTMENT CANCELLED - ICD9: , ICD10: Bayron Engel APRN.CNP, DNP [facility] documented in this encounterOhio[facility]05-[facility] History of Present illness Narrative* Va Whitehead APRN.CNP - 07/31/2021 10:09 AM EDT Images from the original note were not included. Subjective Patient came in with complaints of left grate toe redness and pain. Patient said it started a few days ago. Did not injure foot and has never had this happen before. denies any fever, nausea, or vomiting. denies any loss of feeling or numbness in toe/ foot. denies any other symptoms at this time. The history is provided by the patient. No language tutor was used. Review of Systems Constitutional: Negative. Skin: Negative. Objective Physical Exam Constitutional: Appearance: Normal appearance. Pulmonary: Effort: Pulmonary effort is normal. Musculoskeletal: Feet: Feet: Comments: Erythema noted in area marked above. No drainage noted. Neurological: Mental Status: He is alert. PAST MEDICAL HISTORY Diagnosis Date Anxiety and depression 02/28/2017 Chews tobacco 07/19/2011 Hypertriglyceridemia 05/22/2017 Low serum testosterone level in male 05/22/2017 Metabolic syndrome 12/15/2020 Primary hypertension 01/04/2021 PAST SURGICAL HISTORY Procedure Laterality Date NONE ALLERGIES Animal Dander, Dust, Dust Mites, and Grass Pollen MEDICATIONS cephALEXin (KEFLEX) 500 mg capsule Take 1 capsule by mouth four times daily for 5 days. lisinopril (ZESTRIL, PRINIVIL) 5 mg tablet Take 1 tablet by mouth once daily. DULoxetine (CYMBALTA) 30 mg capsule Take 1 capsule by mouth once daily for 7 days. FLUoxetine (PROZAC) 20 mg capsule Take 1 capsule by mouth once daily. For anxiety FEXOFENADINE HCL (FRED ORAL) Take 1 tablet by mouth as needed. TRIAMCINOLONE ACETONIDE (NASACORT NASAL) Use 2 Sprays in the nose as needed. FAMILY HISTORY Problem Relation Age of Onset None Mother Heart Maternal Grandfather Diabetes Maternal Grandfather Hypertension Father Social History Tobacco Use Smoking status: Former Smoker Smokeless tobacco: Former User Quit date: 08/08/2018 Tobacco comment: uses snuff Vaping Use Vaping Use: Never used Substance Use Topics Alcohol use: No Drug use: No ASSESSMENT/PLAN: 1. Paronychia of great toe - ICD9: 681.11, ICD10: L03.039 Keflex 4 times a day for 5 days. Instructed to soak foot several times a day in warm salt water. Ifsymptoms worsen or do not seem to be getting better follow up with PCP. Patient was okay with this care plan. Va Whitehead APRN.SUSIE documented in this encounterOhio[facility]04-01-[facility]22 Miscellaneous Notes* Telephone Encounter - Bayron Engel APRN.ROMAN RICHARDS - 06/30/2021 3:31 PM EDT The following approved medication requests have been transmitted electronically. Pending Prescriptions Disp Refills LISINOPRIL 5 MG TABLET 90 tablet 1 Sig: Take 1 tablet by mouth once daily. MARTINEZ: No Bayron Engel APRN.ROMAN RICHARDS * Telephone Encounter - Jigna Daniel LPN - 06/30/2021 12:40 PM EDT Patient phones requesting refills as follows: Pending Prescriptions Disp Refills LISINOPRIL 5 MG TABLET 90 tablet 0 Sig: Take 1 tablet by mouth once daily. MARTINEZ: Yes KAILEY-05/01/21 Labs-07/28/20 NOV-none med filled 04/03/21 ends 07/02/21 Please review and advise. Jigna Daniel LPN documented in this encounterOhio[facility]09-29-[facility] History of Past illness Narrative* Problem Noted Date Resolved Date Elevated blood pressure read ing without diagnosis of hypertension 12/28/2020 12/18/2021 Low serum testosterone level in male 05/22/2017 12/18/2021 Anxiety and depression 02/28/2017 2 Chews tobacco 07/19/2011 09/04/2018 Sprain and strain of unspeci fied site of shoulder and upper arm 04/04/2006 02/28/2017 documented as of this encounter (statuses as of 12/18/2021) [facility] of Past illness Narrative* Problem Noted Date Resolved Date Elevated blood pressure read ing without diagnosis of hypertension 12/28/2020 12/18/2021 Low serum testosterone level in male 05/22/2017 12/18/2021 Anxiety and depression 02/28/2017 2 Chews tobacco 07/19/2011 09/04/2018 Sprain and strain of unspeci fied site of shoulder and upper arm 04/04/2006 02/28/2017 documented as of this encounter (statuses as of 01/25/2022) [facility] of Past illness Narrative* Problem Noted Date Resolved Date Elevated blood pressure read ing without diagnosis of hypertension 12/28/2020 12/18/2021 Low serum testosterone level in male 05/22/2017 12/18/2021 Anxiety and depression 02/28/2017 2 Chews tobacco 07/19/2011 09/04/2018 Sprain and strain of unspeci fied site of shoulder and upper arm 04/04/2006 02/28/2017 documented as of this encounter (statuses as of 07/03/2022) [facility] of Past illness Narrative* Problem Noted Date Resolved Date Elevated blood pressure read ing without diagnosis of hypertension 12/28/2020 12/18/2021 Low serum testosterone level in male 05/22/2017 12/18/2021 Anxiety and depression 02/28/2017 2 Chews tobacco 07/19/2011 09/04/2018 Sprain and strain of unspeci fied site of shoulder and upper arm 04/04/2006 02/28/2017 documented as of this encounter (statuses as of 07/05/2022) [facility] of Past illness Narrative* Problem Noted Date Resolved Date Elevated blood pressure read ing without diagnosis of hypertension 12/28/2020 12/18/2021 Low serum testosterone level in male 05/22/2017 12/18/2021 Anxiety and depression 02/28/2017 2 Chews tobacco 07/19/2011 09/04/2018 Sprain and strain of unspeci fied site of shoulder and upper arm 04/04/2006 02/28/2017 documented as of this encounter (statuses as of 09/28/2022) [facility] of Past illness Narrative* Problem Noted Date Diagnosed Date Resolved Date Elevated blood pressure read ing without diagnosis of hypertension 12/28/2020 12/18/2021 Low serum testosterone level in male 05/22/2017 12/18/2021 Anxiety and depression 02/28/201712/18 Chews tobacco 07/19/2011 09/04/2018 Sprain and strain of unspeci fied site of shoulder and upper arm 04/04/2006 02/28/2017 documented as of this encounter (statuses as of 12/21/2022) [facility] of Past illness Narrative* Problem Noted Date Diagnosed Date Resolved Date Elevated blood pressure read ing without diagnosis of hypertension 12/28/2020 12/18/2021 Low serum testosterone level in male 05/22/2017 12/18/2021 Anxiety and depression 02/28/201712/18 Chews tobacco 07/19/2011 09/04/2018 Sprain and strain of unspeci fied site of shoulder and upper arm 04/04/2006 02/28/2017 documented as of this encounter (statuses as of 01/14/2023) [facility] of Past illness Narrative* Problem Noted Date Diagnosed Date Resolved Date Elevated blood pressure read ing without diagnosis of hypertension 12/28/2020 12/18/2021 Low serum testosterone level in male 05/22/2017 12/18/2021 Anxiety and depression 02/28/201712/18 Chews tobacco 07/19/2011 09/04/2018 Sprain and strain of unspeci fied site of shoulder and upper arm 04/04/2006 02/28/2017 documented as of this encounter (statuses as of 01/17/2023) [facility] History of Past illness Narrative* Problem Noted Date Resolved Date Chews tobacco 07/19/2011 09/04/2018 Sprain and strain of unspeci fied site of shoulder and upper arm 04/04/2006 02/28/2017 documented as of this encounter (statuses as of 06/30/2021) [facility] of [facility] illness Narrative* Problem Noted Date Resolved Date Chews tobacco 07/19/2011 09/04/2018 Sprain and strain of unspeci fied site of shoulder and upper arm 04/04/2006 02/28/2017 documented as of this encounter (statuses as of 07/31/2021) [facility] of [facility] illness Narrative* Problem Noted Date Resolved Date Chews tobacco 07/19/2011 09/04/2018 Sprain and strain of unspeci fied site of shoulder and upper arm 04/04/2006 02/28/2017 documented as of this encounter (statuses as of 08/29/2021) [place] [id number] History of Past illness Narrative* Problem Noted Date Resolved Date Chews tobacco 07/19/2011 09/04/2018 Sprain and strain of unspeci fied site of shoulder and upper arm 04/04/2006 02/28/2017 documented as of this encounter (statuses as of 08/31/2021) [facility] Narrative* Problem Noted Date Resolved Date Chews tobacco 07/19/2011 09/04/2018 Sprain and strain of unspeci fied site of shoulder and upper arm 04/04/2006 02/28/2017 documented as of this encounter (statuses as of 09/01/2021) [facility] Diagnosis Primary hypertension Unspecified essential hypertension documented in this encounter [facility]* Diagnosis Paronychia of great toe- Primary [facility] Diagnosis Anxiety and depression Dysthymic disorder [facility]* Diagnosis APPOINTMENT CANCELLED- Primary [facility]* Diagnosis Panic disorder- Primary Panic disorder without agoraphobia Anxiety and depression Dysthymic disorder Primary hypertension Unspecified essential hypertension Metabolic syndrome Dysmetabolic Syndrome X [facility]* Diagnosis Primary hypertension- Primary Unspecified essential hypertension Hypertriglyceridemia Pure hyperglyceridemia Anxiety and depression Dysthymic disorder Hyperglycemia Other abnormal glucose [facility]* Diagnosis Left leg pain- Primary Pain in limb [facility]* Diagnosis Streptococcal pharyngitis- Primary Streptococcal sore throat Sore throat Acute pharyngitis [facility]* Diagnosis Pharyngitis due to Streptococcus species- Primary [facility]* Diagnosis Rhinosinusitis- Primary Unspecified sinusitis (chronic) [facility]* Diagnosis Primary hypertension Unspecified essential hypertension [facility]* Diagnosis Hypertriglyceridemia- Primary Pure hyperglyceridemia Primary hypertension Unspecified essential hypertension Metabolic syndrome Dysmetabolic Syndrome X Hyperglycemia Other abnormal glucose Neck pain Cervicalgia [facility]* Diagnosis Hypertriglyceridemia- Primary Pure hyperglyceridemia documented [facility] this encounter [facility]* Diagnosis Primary hypertension- Primary Unspecified essential hypertension Hypertriglyceridemia Pure hyperglyceridemia Prediabetes Other abnormal glucose documented in this encounter [facility] note* Diagnosis Rhinosinusitis- Primary Unspecified sinusitis (chronic) [facility]* Diagnosis Leg cramp- Primary Cramp of limb Hypertriglyceridemia Pure hyperglyceridemia Primary hypertension Unspecified essential hypertension Mild intermittent asthma, uncomplicated Unspecified asthma Wheezing Hyperglycemia Other abnormal glucose documented in this encounter [facility] Reason for Referral Specialty Diagnoses / Procedures Referred By Contac t Referred To Contact [facility] Diagnoses Neck pain Procedures CONSULT TO PHYSICAL THERAPY PHYSICAL THERAPY EVALUATION HIGH COMPLEX 45 MINS Lupe Saez MD [address] [place] [address] [facility] [place] [address] [place] [address] Referral ID Status Reason Start Date Expiration Date Visits Requested Visits Authorized [id number] Pending Review Auto-Generat ed Referral 3 01/14/2024 1 1 Specialty Diagnoses / Procedures Referred By Contac t Referred To Contact XR IMAGING Diagnoses Neck pain Procedures XR CERV OTHER 4V AP/LAT/OBL RADEX SPINE CERVICAL 4 OR 5 VIEWS Lupe Saez MD [address] [place] [address] [place] [id number] Referral ID Status Reason Start Date Expiration Date Visits Requested Visits Authorized [id number] Pending Review Auto-Generat ed Referral 3 02/13/2024 1 1 Summary Purpose Family History No Family History Records Found Advance Directives No Advanced Directives Records Found Additional Source Comments Source Comments (unrecognize d section and content) In the event this informatio n is protected by the Federal Confidentiality of Alcohol and Drug Abuse Patient Records regulations: The Federal rules restrict any use of the information to criminally investigate or prosecute any alcohol or drug abuse patient.[facility] Hospital[facility] the event this information is protected by the Federal Confidentiality of Alcohol and Drug Abuse Patient Records regulations: The Federal rules restrict any use of the information to criminally investigate or prosecute any alcohol or drug abuse patient.[facility] HospitalIn the event this information is protected by the Federal Confidentiality of Alcohol and Drug Abuse Patient Records regulations: The Federal rules restrict any use of the information to criminally investigate or prosecute any alcohol or drug abuse patient.[facility] HospitalIn the event this information is protected by the Federal Confidentiality of Alcohol and Drug Abuse Patient Records regulations: The Federal rules restrict any use of the information to criminally investigate or prosecute any alcohol or drug abuse patient.[facility] HospitalIn the event this information is protected by the Federal Confidentiality of Alcohol and Drug Abuse Patient Records regulations: The Federal rules restrict any use of the information to criminally investigate or prosecute any alcohol or drug abuse patient.[facility] HospitalIn the event this information is protected by the Federal Confidentiality of Alcohol and Drug Abuse Patient Records regulations: The Federal rules restrict any use of the information to criminally investigate or prosecute any alcohol or drug abuse patient.[facility] HospitalIn the event this information is protected by the Federal Confidentiality of Alcohol and Drug Abuse Patient Records regulations: The Federal rules restrict any use of the information to criminally investigate or prosecute any alcohol or drug abuse patient.[facility] HospitalIn the event this information is protected by the Federal Confidentiality of Alcohol and Drug Abuse Patient Records regulations: The Federal rules restrict any use of the information to criminally investigate or prosecute any alcohol or drug abuse patient.[facility] HospitalIn the event this information is protected by the Federal Confidentiality of Alcohol and Drug Abuse Patient Records regulations: The Federal rules restrict any use of the information to criminally investigate or prosecute any alcohol or drug abuse patient.[facility] HospitalIn the event this information is protected by the Federal Confidentiality of Alcohol and Drug Abuse Patient Records regulations: The Federal rules restrict any use of the information to criminally investigate or prosecute any alcohol or drug abuse patient.[facility] HospitalIn the event this information is protected by the Federal Confidentiality of Alcohol and Drug Abuse Patient Records regulations: The Federal rules restrict any use of the information to criminally investigate or prosecute any alcohol or drug abuse patient.[facility] HospitalIn the event this information is protected by the Federal Confidentiality of Alcohol and Drug Abuse Patient Records regulations: The Federal rules restrict any use of the information to criminally investigate or prosecute any alcohol or drug abuse patient.[facility] HospitalIn the event this information is protected by the Federal Confidentiality of Alcohol and Drug Abuse Patient Records regulations: The Federal rules restrict any use of the information to criminally investigate or prosecute any alcohol or drug abuse patient.[facility] HospitalIn the event this information is protected by the Federal Confidentiality of Alcohol and Drug Abuse Patient Records regulations: The Federal rules restrict any use of the information to criminally investigate or prosecute any alcohol or drug abuse patient.[facility] HospitalIn the event this information is protected by the Federal Confidentiality of Alcohol and Drug Abuse Patient Records regulations: The Federal rules restrict any use of the information to criminally investigate or prosecute any alcohol or drug abuse patient.[facility] HospitalIn the event this information is protected by the Federal Confidentiality of Alcohol and Drug Abuse Patient Records regulations: The Federal rules restrict any use of the information to criminally investigate or prosecute any alcohol or drug abuse patient.[facility] Reason for Visit (unrecogniz ed section and content) Reason Comments Toe Pain (Toe) L foot 1st toe infec tion x1 week Reason Comments Follow Up Anxiety Reason Comments Hypertension Reason Comments left knee/leg pain X 3 days-cannot reca ll an injury Reason Comments Sore Throat X3 days Reason Comments Sore Throat + strep not getting better with ATB Reason Comments Sinus Problem Sinus congestion and QUINN x 3 weeks Reason Onset Date Comments Refill Request 12/21/2022 Reason Comments ER F/U Reason Comments Results Reason Comments Follow Up Reason Comments Pain, Sinus Nasal congestion, he adache, cough x 2 weeks Reason Comments Asthma Follow Up Care Teams (unrecognized sec tion and content) Planer Stone Relationship Specialty Start Date End Date Bayron Engel, PERMIT AGENT.LIME KILN TENDER, DNP [address] [place] [address] PCP - General Family Practice 07/14/20 Planer Stone Relationship Specialty Start Date End Date Bayron Engel, PERMIT AGENT.LIME KILN TENDER, DNP [address] [place] [address] PCP - General Family Practice 07/14/20 Planer Stone Relationship Specialty Start Date End Date Bayron Engel, PERMIT AGENT.LIME KILN TENDER, DNP [address] [place] [address] PCP - General Family Practice 07/14/20 Planer Stone Relationship Specialty Start Date End Date Lupe Saez MD [address] [place] [address] PCP - General Family Practice 12/18/21 Planer Stone Relationship Specialty Start Date End Date Lupe Saez MD [address] [place] [address] PCP - General Family Medicine 12/18/21 Planer Stone Relationship Specialty Start Date End Date Lupe Saez MD [address] [place] [address] PCP - General Family Medicine 12/18/21 Planer Stone Relationship Specialty Start Date End Date Lupe Saez MD [address] [facility], [place] [address] PCP - General Family Medicine 12/18/21 Planer Stone Relationship Specialty Start Date End Date Lupe Saez MD [address] [facility], [place] [address] PCP - General Family Medicine 12/18/21 Planer Stone Relationship Specialty Start Date End Date Lupe Saez MD [address] [place], [place] [address] PCP - General Family Medicine 12/18/21 Planer Stone Relationship Specialty Start Date End Date Lupe Saez MD [address] [place], [place] [id number] PCP - General Family Medicine 12/18/21 Planer Stone Relationship Specialty Start Date End Date Lupe Saez MD [address] [place], [place] [address] PCP - General Family Medicine 12/18/21 Planer Stone Relationship Specialty Start Date End Date Lupe Saez MD [address] [place], [place] [address] PCP - General Family Medicine 12/18/21 (unrecognized sect ion and content) No Status Records Found INFORMATION SOURCE (unrecogn ized section and content) FOR RECORDS PERTAINING TO PATIENTS WHO ARE OR HAVE BEEN ENROLLED IN A CHEMICAL DEPENDENCY/SUBSTANCEABUSE PROGRAM, SOME INFORMATION MAY BE OMITTED. This clinical summary was aggregated from multiple sources. Caution should be exercised in using it in the provision of clinical care. This summary normalizes information from multiple sources, and as a consequence, information in this document may materially change the coding, format and clinical context of patient data. In addition, data may be omitted in some cases. CLINICAL DECISIONS SHOULD BE BASED ON THE PRIMARY CLINICAL RECORDS. [facility] [employer] [facility]. provides no warranty or guarantee of the accuracy or completeness of information in this document.
[2023-05-20] MEDS: Doxycycline 100 MG CAPSULE PO (21:58)
[2023-05-20] MEDS: predniSONE 20 MG Tablet 60 MG PO (21:58)
--- NOTE | 2023-05-20 22:13 | CPS ---
x1 Albuterol given to pt. in ER as well
--- NOTE | 2023-05-20 22:15 | ED.VIS.DYS ---
HPI History of Present Illness Chief Complaint: Asthma Narrative Narrative: 38-year-old male presenting with shortness of breath and cough. States been ongoing for about a week. He initially got symptoms after his daughter had something viral. His symptoms have not gone away. He still just primary care treated him for asthma with 20 mg of prednisone x 5 days and albuterol inhaler. Patient has never had formal testing for asthma. He states that every year he gets some wheezing and a cough and gets treated with prednisone and breathing treatments. Denies chest pain. Has not had fevers. Does not feel unwell. He has been able to work and do his chores around the house. He works in the [employer] [facility] Medical History Hypertriglyceridemia Home Medications duloxetine 60 mg capsule,delayed release 60 capsule PO DAILY 08/02/20 [History Last Taken Unknown] lisinopril 5 mg tablet 10 mg PO DAILY 05/28/21 [History Last Taken Unknown] albuterol sulfate 90 mcg/actuation aerosol inhaler inhalation 05/20/23 [History Last Taken Unknown] atorvastatin 20 mg tablet mg 05/20/23 [History Last Taken Unknown] doxycycline hyclate 100 mg capsule 100 mg PO BID #14 caps 05/20/23 [Rx Last Taken Unknown] prednisone 20 mg tablet 60 mg (3 x 20 mg) PO DAILY #15 TABLETS 05/20/23 [Rx Last Taken Unknown] Allergy/AdvReac Type Severity Reaction Status Date / Time acetaminophen [From Vicodin] AdvReac Nausea Verified 05/20/23 20:54 hydrocodone bitartrate AdvReac Nausea Verified 05/20/23 20:54 [From Vicodin] Family History Other Diabetes Mixed hyperlipidemia Social History adopted: No household members: spouse and children number of children: 3 current occupational status: employed sexually active: Yes Smoking Status: Never smoker Smokeless tobacco user: other ROS ROS ED Constitutional Constitutional ED: Denies chills, fever(s) or sweats Eyes Eyes: Denies blurry vision or change in vision ENT ENT ED: Denies ear pain or sore throat Cardiovascular Cardiovascular: Denies chest pain, palpitations or racing heartbeat Respiratory/Chest Respiratory/Chest: Reports cough, dyspnea and dyspnea on exertion; Denies sputum Gastrointestinal Gastrointestinal: Denies abdominal pain, constipation, diarrhea, nausea or vomiting Genitourinary Genitourinary ED: Denies dysuria, hematuria or urinary frequency Musculoskeletal Musculoskeletal: Denies arthralgias, myalgias or neck pain Integumentary Denies abscess, Abrasions or rash Neurologic Neurologic: Denies headache(s), paresthesias or weakness Psychiatric Psychiatric: Denies anxiety, depression, suicidal ideation or suicidal thoughts Endocrine Endocrinology: Denies polydipsia or polyuria EXAM Physical Exam Const Vital Signs: 05/20/23 20:55 05/20/23 21:12 05/20/23 21:56 Temperature 99.1 F Temperature Source Temporal Pulse Rate 103 H 121 H Respiratory Rate 18 20 H Respiratory Effort Normal Respiratory Depth Shallow Respiratory Pattern Normal Blood Pressure 171/92 H Blood Pressure Mean 118 Pulse Ox 95 Oxygen Delivery Method Room Air Positive well nourished General Appearance ED: NAD HEENT Reports moist mucous membranes atraumatic Eyes PERRL and EOMs intact bilaterally Neck no lymphadenopathy and supple Resp normal respiratory effort Auscultation: wheezes scattered wheezes Cardio regular rate Rate: tachycardic GI non-tender Neuro oriented x3 and CN's II-XII intact bilaterally Sensorium / Orientation: alert Motor Exam: strength 5/5 throughout Psych mental status grossly normal MDM MDM MDM Narrative Medical decision making narrative: Patient with dyspnea and cough. Patient been experiences for over a week. He was exposed to his daughter who was sick he was not better. Patient denies any fever, chills. No chest pain. He does have shortness of breath is been able to carry out his activities of daily living. Patient states he was on a low-dose of prednisone this week at 20 mg daily and this kind of helped but did not quite solve the problem. Patient continues to feel like he is wheezing. Patient given prednisone 60 mg p.o. and breathing treatments and he feels much better. His wheezing is improved as well. Patient will put on a prednisone burst and given albuterol inhaler. Since he has a week of symptoms which had improved we will start him on doxycycline as well. Return precautions are discussed. Impression: 1. Acute bronchitis with wheezing Lab Data Attestation: I reviewed the patient's lab results. Discharge Plan Triage Chief Complaint: Asthma ED Provider: Otto Wisdom Dx/Rx/DC Orders Instructions: ED Bronchitis with Wheezing (Adult) Prescriptions: New doxycycline hyclate 100 mg capsule 100 mg PO BID Qty: 14 0RF prednisone 20 mg tablet 60 mg PO DAILY Qty: 15 0RF No Action duloxetine 60 mg capsule,delayed release(DR/EC) 60 capsule PO DAILY lisinopril 5 mg Tablet 10 mg PO DAILY atorvastatin 20 mg tablet Patient Comments: take 1 tablet by mouth once daily for cholesterol albuterol sulfate 90 mcg/actuation HFA aerosol inhaler INHALATION Patient Comments: inhale 2 puffs by mouth and INTO THE LUNGS every 4 hours if neede... (REFER TO PRESCRIPTION NOTES). Primary Care Provider: Ivan Saez Referrals: Ivan Saez MD [Primary Care Provider] - Disposition Disposition: Home, Self Care
== END 2023-05-20 22:48 | disposition home or self-care (01) ==
LOC: ED 21:53
PROVIDERS: Emergency Provider Student in an Organized Health Care Education/Training Program; PCP Family Medicine; Visit Provider Student in an Organized Health Care Education/Training Program
DX: J20.9 Acute bronchitis, unspecified (principal); J45.909 Unspecified asthma, uncomplicated
CPT/HCPCS: 94640; 99282

== ENCOUNTER 2023-11-12 16:18 | Emergency (ER) | payer OTHER, SELFPAY ==
[2023-11-12 16:19] VITALS: BP 135/86; PULSE 91; RESP 17; TEMP 36.1; O2SAT 99
[2023-11-12 16:20] VITALS: BMI 38.2
--- NOTE | 2023-11-12 16:45 | RAD_ITS ---
STUDY: X-RAY - RIGHT ANKLE REASON FOR EXAM: Male, 38 years old. fall pain TECHNIQUE: 3 view(s) of the ankle. COMPARISON: None. FINDINGS: Spiral nondisplaced fracture seen of the distal fibula just above the lateral malleolus. Normal visualized distal tibia. Normal medial and lateral malleoli. Normal tibiotalar articulation and ankle mortise. Normal visualized talus and calcaneus. The visualized subtalar, talonavicular, calcaneocuboid and tarsal articulations are normal. There is lateral soft tissue swelling. RAD/Ankle min 3 Views IMPRESSION: Spiral nondisplaced fracture seen of the distal fibula just above the lateral malleolus. Electronically Signed: Santana Reyes MD at 17:01 EDT ,
--- NOTE | 2023-11-12 16:45 | RAD_ITS ---
STUDY: X-RAY - RIGHT KNEE REASON FOR EXAM: Male, 38 years old. fall pain TECHNIQUE: 3 view(s) of the knee. COMPARISON: None. FINDINGS: Normal visualized distal femur. Normal visualized proximal tibia and fibula. Normal proximal tibiofibular articulation. There is no demonstrated fracture. Normal medial femorotibial compartment. Normal lateral femorotibial compartment. Normal patellofemoral articulation. There is no demonstrated joint effusion. The soft tissue structures are unremarkable. RAD/Knee 3 Views IMPRESSION: Normal x-ray examination of the knee. Electronically Signed: Santana Reyes MD at 17:03 EDT ,
--- NOTE | 2023-11-12 17:22 | ED.VIS.LOWEX ---
HPI History of Present Illness HPI Narrative: Patient presents with right ankle injury that occurred today. Patient states he slipped and twisted his right ankle. thinks that the ankle was dorsiflexed when he fell. Patient states his pain is sharp and tight. Patient states it is worse with any weightbearing. Patient denies any paresthesias or weakness. Patient denies any head injury or loss of consciousness. Patient states he did have some nausea when he fell initially. Patient admits to an abrasion over his right knee. Patient denies any pain in his right knee. Patient denies any other injuries. Chief Complaint: Lower Extremity Injury Informant: patient Occured/Mechanism Mechanism/Context: Yes fall Onset/Context/Timing Onset: Today Quality of Pain: Sharp Location: Right ankle Worsened by: Weightbearing Relieved by: Nothing Associated Symptoms Associated Symptoms: Negative for Parasthesia, Weakness or Loss of Funtion [facility] Medical History (Updated 11/12/23 @ 17:[address] Ravinder Zaidi DO) Hypertension Hypertriglyceridemia Home Medications ?Medication ?Instructions ?Recorded ?Last Taken ?Type duloxetine 60 mg capsule,delayed 60 capsule PO DAILY 08/02/20 Unknown History release lisinopril 5 mg tablet 10 mg PO DAILY 05/28/21 Unknown History albuterol sulfate 90 mcg/actuation inhalation 05/20/23 Unknown History aerosol inhaler atorvastatin 20 mg tablet mg 05/20/23 Unknown History doxycycline hyclate 100 mg capsule 100 mg PO BID #14 caps 05/20/23 Unknown Rx prednisone 20 mg tablet 60 mg (3 x 20 mg) PO DAILY #15 05/20/23 Unknown Rx TABLETS Allergy/AdvReac Type Severity Reaction Status Date / Time acetaminophen (From Vicodin) AdvReac Nausea Verified 11/12/23 16:19 hydrocodone bitartrate (From AdvReac Nausea Verified 11/12/23 16:19 Vicodin) Family History Other Diabetes Mixed hyperlipidemia Surgical History no surgical history no surgical history Social History adopted: No household members: spouse and children number of children: 3 current occupational status: employed sexually active: Yes Smoking Status: Never smoker Smokeless tobacco user: other ROS ROS ED Constitutional Constitutional ED: Denies chills or fever(s) Eyes Eyes: Denies blurry vision or change in vision ENT ENT ED: Denies rhinorrhea or sore throat Cardiovascular Cardiovascular: Denies chest pain or palpitations Respiratory/Chest Respiratory/Chest: Denies cough or dyspnea Gastrointestinal Gastrointestinal: Reports nausea; Denies vomiting Genitourinary Genitourinary ED: Denies dysuria or hematuria Musculoskeletal Musculoskeletal: Denies back pain or neck pain Integumentary Reports Abrasions; Denies abscess or rash Neurologic Neurologic: Denies headache(s) or weakness Allergic/Immunologic Allergic/Immunologic ED: Denies mouth swelling or urticaria EXAM Physical Exam Const Vital Signs: 11/12/23 16:19 Temperature 97 F L Temperature Source Temporal Pulse Rate 91 Respiratory Rate 17 Blood Pressure 135/86 H Blood Pressure Mean 102 Pulse Ox 99 Oxygen Delivery Method Room Air Positive well nourished and well developed General Appearance ED: well developed and NAD HEENT Reports moist mucous membranes Neck full ROM and supple Extremity Extremity Narrative: There is tenderness and edema over the right ankle. There is worse tenderness over the lateral aspect of the ankle. There is no obvious deformity noted. Range of motion was limited in all motions of the right ankle secondary to pain. Pedal pulses are equal bilaterally. Sensation was intact to light touch in all digits. There is no tenderness over the proximal fibula. There is a superficial abrasion over the anterior aspect of the right knee and proximal tibia. There is no active bleeding noted. There are no foreign bodies noted. There is good range of motion of the right knee. Extensor mechanism is intact. Neuro oriented x3, CN's II-XII intact bilaterally, moves all extremities and no sensory deficits noted Sensorium / Orientation: alert Motor Exam: strength 5/5 throughout Psych mental status grossly normal MDM MDM MDM Narrative Medical decision making narrative: Differential diagnosis includes patella fracture, tibial tuberosity fracture, ankle fracture, contusion, and sprain. X-rays of the right ankle will be obtained to assess for ankle fracture. X-rays of the right knee will be obtained to assess for patella fracture. Radiography Diagnostic Testing: Clinical Impression(s) from Imaging Studies Ankle X-Ray 11/12/23 16:45 IMPRESSION: Spiral nondisplaced fracture seen of the distal fibula just above the lateral malleolus. Electronically Signed: Santana Reyes MD at 17:01 EDT , Knee X-Ray 11/12/23 16:45 IMPRESSION: Normal x-ray examination of the knee. Electronically Signed: Santana Reyes MD at 17:03 EDT , X-rays of the right ankle were obtained. There are 3 views. On my independent interpretation, there is a nondisplaced fracture of the distal fibula extending from the joint line proximally. There is some soft tissue swelling noted. Radiologist also interpreted the x-rays and agrees. X-rays of the right knee were obtained. There are 3 views. On my independent interpretation, there is no acute fracture or dislocation noted. There is no loose body noted. Radiologist also interpreted the x-rays and agrees. Treatment and Re-Evaluation Narrative: Patient was advised of his findings. Patient was advised that he needs to be placed in a walking boot. Patient was given crutches. Bacitracin dressing was applied to the right knee. Patient was instructed to ice and elevate the right ankle. Patient states she will take Tylenol and ibuprofen as needed for pain. Patient was instructed to follow-up with podiatry as well as his primary care physician in 5 to 7 days. Patient understood and was agreeable with the plan. All questions were answered. Discharge Plan Triage Chief Complaint: Lower Extremity Injury ED Provider: Ravinder Zaidi Dx/Rx/DC Orders Clinical Impression: Closed fracture of distal end of right fibula, Abrasion of right knee Instructions: ED Ankle Fracture, Distal Fibula Prescriptions: No Action duloxetine 60 mg capsule,delayed release(DR/EC) 60 capsule PO DAILY lisinopril 5 mg Tablet 10 mg PO DAILY atorvastatin 20 mg tablet Patient Comments: take 1 tablet by mouth once daily for cholesterol albuterol sulfate 90 mcg/actuation HFA aerosol inhaler INHALATION Patient Comments: inhale 2 puffs by mouth and INTO THE LUNGS every 4 hours if neede... (REFER TO PRESCRIPTION NOTES). doxycycline hyclate 100 mg capsule 100 mg PO BID Qty: 14 0RF prednisone 20 mg tablet 60 mg PO DAILY Qty: 15 0RF Primary Care Provider: Ivan Saze Referrals: Bruce Castellon DO [Med Staff - Active Staff] - 5-7 Days Ivan Saez MD [Primary Care Provider] - Keep Poly appointment Print Language: Senegalese Disposition Disposition: Home, Self Care
== END 2023-11-12 17:46 | disposition home or self-care (01) ==
PROVIDERS: Emergency Provider Emergency Medicine; PCP Family Medicine; Visit Provider Emergency Medicine
DX: S82.831A Other fracture of upper and lower end of right fibula, initial encounter for closed fracture (principal); S80.211A Abrasion, right knee, initial encounter; Z79.51 Long term (current) use of inhaled steroids; X58.XXXA Exposure to other specified factors, initial encounter
CPT/HCPCS: 73562; 73610; 99283

== ENCOUNTER 2024-02-10 00:38 | Emergency (ER) | payer OTHER, SELFPAY ==
[2024-02-10 00:40] VITALS: BP 130/85; PULSE 85; RESP 18; TEMP 36.5; O2SAT 94; BMI 36.9
--- NOTE | 2024-02-10 00:53 | CT_ITS ---
EXAM: CT ABDOMEN AND PELVIS WITH INTRAVENOUS CONTRAST CLINICAL INDICATION: llq pain TECHNIQUE: Helically acquired images were obtained of the abdomen and pelvis with intravenous contrast. This CT exam was performed using one or more of the following dose reduction techniques: automated exposure control, adjustment of the mA and/or kV according to patient size, and/or use of iterative reconstruction technique. CONTRAST: IV 100mL [id number] RADIATION DOSE: CTDIvol = 18.13 mGy, DLP = 1234.71 mGy-cm COMPARISON: No relevant prior studies available. FINDINGS: LOWER THORAX: Unremarkable. Lung bases are clear. No cardiomegaly. No significant pericardial effusion. ABDOMEN: LIVER: Small benign coarse calcifications in the liver. GALLBLADDER AND BILE DUCTS: Unremarkable. No calcified gallstones. No gallbladder distention or wall edema. No intra- or extrahepatic biliary ductal dilation. PANCREAS: Unremarkable. No focal cystic or solid mass. SPLEEN: Unremarkable. Normal size without focal cystic or solid mass. ADRENALS: Unremarkable. No nodules. KIDNEYS AND URETERS: Small simple cyst in the right kidney. No follow-up imaging is recommended per consensus recommendations based on imaging criteria. No ureteral stone or renal obstruction. Normal renal size and position. STOMACH AND BOWEL: Diverticular disease of the colon but no diverticulitis. No stomach or bowel distention. PELVIS: APPENDIX: The appendix is normal. BLADDER: Unremarkable. REPRODUCTIVE: Unremarkable as visualized. No mass. ABDOMEN and PELVIS: INTRAPERITONEAL SPACE: Unremarkable. No ascites or other fluid collection. No free air. BONES/JOINTS: Unremarkable. No suspicious lytic or blastic abnormality. SOFT TISSUES: Unremarkable. No discrete abdominal or pelvic wall hernia. VASCULATURE: Unremarkable. Abdominal aorta is non-dilated. LYMPH NODES: Unremarkable. No enlarged lymph nodes. CT/Abdomen/Pelvis W IV Cont ONLY IMPRESSION: 1. No acute findings in the abdomen/pelvis. 2. Diverticular disease of the colon but no diverticulitis. Electronically Signed: Jad Richardson MD at 3:01 EST ,
--- NOTE | 2024-02-10 00:53 | ED.VIS.GI ---
HPI HPI - GI History of Present Illness Chief Complaint: Abd Pain Informant: patient Narrative Narrative: Healthy 38-year-old male states he has had gradual onset of left lower quadrant abdominal pain that started 9 or 10 hours ago, and has gradually worsened. He denies any radiation into his back, no nausea, vomiting, abnormal bowel movements, or fevers/chills. No history of any abdominal surgeries never had this before, no history of having a colonoscopy in the past for any reason. PFSH PFSH Medical History DM type 2 (diabetes mellitus, type 2) Hypertension Hypertriglyceridemia Home Medications ?Medication ?Instructions ?Recorded ?Last Taken ?Type lisinopril 5 mg tablet 10 mg PO DAILY 05/28/21 Unknown History albuterol sulfate 90 mcg/actuation 2 puff inhalation Q4H PRN 05/20/23 Unknown History aerosol inhaler shortness of breath or wheezing atorvastatin 20 mg tablet 40 mg PO DAILY 05/20/23 Unknown History amitriptyline 10 mg tablet 20 mg PO DAILY 02/10/24 Unknown History amoxicillin 875 mg-potassium 875 mg PO Q12H #20 TABLETS 02/10/24 Unknown Rx clavulanate 125 mg tablet desvenlafaxine succinate 50 mg 50 mg PO DAILY 02/10/24 Unknown History tablet,extended release 24 hr (Pristiq) fenofibrate 40 mg tablet 40 mg PO DAILY 02/10/24 Unknown History metformin 500 mg tablet 500 mg PO DAILY 02/10/24 Unknown History Allergy/AdvReac Type Severity Reaction Status Date / Time acetaminophen (From Vicodin) AdvReac Nausea Verified 02/10/24 00:39 hydrocodone bitartrate (From AdvReac Nausea Verified 02/10/24 00:39 Vicodin) Family History Other Diabetes Mixed hyperlipidemia Social History adopted: No household members: spouse and children number of children: 3 current occupational status: employed sexually active: Yes Smoking Status: Never smoker Smokeless tobacco user: other ROS ROS ED Constitutional Constitutional ED: Denies chills or fever(s) Eyes Eyes: Denies change in vision or diplopia ENT ENT ED: Denies rhinorrhea or sore throat Cardiovascular Cardiovascular: Denies chest pain or palpitations Respiratory/Chest Respiratory/Chest: Denies cough or dyspnea Gastrointestinal Gastrointestinal: Reports abdominal pain; Denies diarrhea, nausea or vomiting Genitourinary Genitourinary ED: Denies dysuria or hematuria Musculoskeletal Musculoskeletal: Denies back pain or neck pain Integumentary Denies abscess or rash Neurologic Neurologic: Denies headache(s), paresthesias or weakness Psychiatric Psychiatric: Denies anxiety or suicidal thoughts EXAM Physical Exam Const Vital Signs: 02/10/24 00:40 02/10/24 02:38 Temperature 97.7 F L Temperature Source Oral Pulse Rate 85 74 Respiratory Rate 18 18 Blood Pressure 130/85 H 118/76 Blood Pressure Mean 100 90 Pulse Ox 94 99 Oxygen Delivery Method Room Air Room Air Positive well nourished and well developed General Appearance ED: well developed and NAD HEENT Reports moist mucous membranes normocephalic and atraumatic Eyes PERRL and EOMs intact bilaterally Neck full ROM and supple Resp normal respiratory effort and clear to auscultation bilaterally Cardio regular rate, regular rhythm and no murmurs GI non-distended GI Narrative: Mildly tender lateral aspect of the left lower quadrant, no guarding or rebound no pulsatile mass no Tomy sign, otherwise benign abdomen. Auscultation: normoactive bowel sounds Palpation: soft Back/Spine no CVA tenderness General Back: other FROM Extremity normal to inspection General Extremety ED: Negative for edema, pulses abnormal or tenderness General Extremity: Negative for edema or pulses abnormal Neuro oriented x3, CN's II-XII intact bilaterally and no sensory deficits noted Sensorium / Orientation: awake and alert Motor Exam: strength 5/5 throughout Skin no rashes or lesions noted and no wounds MDM MDM MDM Narrative Medical decision making narrative: Less likely be a kidney stone given the onset, but patient could have diverticular disease and/or diverticulitis. For that reason CT obtained in addition to labs and urinalysis. The labs and urine are normal, I reviewed the CT results as well as the report which I agree with, diverticulosis is noted but there is no radiographic evidence of diverticulitis or any other acute abnormality that explains his pain. In the meantime he was given Toradol and on reevaluation he is feeling very well without any pain at the moment. My suspicion is the diverticulosis is related, and he may or may not have early diverticulitis. It is 3 AM and I am letting him go home with a wait and see prescription for Augmentin so that he does not have to return to the ER if the pain persists by tomorrow afternoon, I would recommend filling and taking the prescription as prescribed and following up with his doctor. That, and ibuprofen as needed and he is stable for discharge and comfortable with that plan. History & Record Review Discussion w/independent historian: Patient and Significant other Lab Data Attestation: I reviewed the patient's lab results. Labs: Laboratory Results - last 24 hr 02/10/24 02/10/24 01:00 01:06 WBC 8.3 RBC 4.91 Hgb 14.2 Hct 39.9 L MCV 81.3 MCH 28.9 MCHC 35.6 RDW Std Deviation 37.7 RDW Coeff of [place] 12.8 Plt Count 284 MPV 10.0 Immature Gran % (Auto) 0.200 Neut % (Auto) 48.4 Lymph % (Auto) 41.5 H Lamb % (Auto) 6.7 Eos % (Auto) 2.8 Baso % (Auto) 0.4 Absolute Neuts (auto) 4.0 Absolute Lymphs (auto) 3.42 Nucleated RBC % 0 Sodium 135 L Potassium 3.7 Chloride 105 Carbon Dioxide 23.0 Anion Gap 7 BUN 24 H Creatinine 1.02 Estim Creat Clear Calc 115.96 Est GFR (MDRD) Af Amer 104 Est GFR (MDRD) Non-Af 86 BUN/Creatinine Ratio 23.5 H Glucose 152 H Calcium 7.8 L Urine Color Yellow Urine Clarity Clear Urine pH 6.0 Ur Specific [place] 1.020 Urine Protein Negative Urine Glucose (UA) Normal Urine Ketones Negative Urine Occult Blood Negative Urine Nitrite Negative Urine Bilirubin Negative Urine Urobilinogen Normal Ur Leukocyte Esterase Negative Urine RBC 0 SEEN Urine WBC 0 SEEN Ur Squamous Epith Cells 0 SEEN Urine Bacteria 0 SEEN Urine Mucus 0 SEEN Radiography Diagnostic Testing: Clinical Impression(s) from Imaging Studies Abdomen/Pelvis CT 02/10/24 00:53 IMPRESSION: 1. No acute findings in the abdomen/pelvis. 2. Diverticular disease of the colon but no diverticulitis. Electronically Signed: Jad Richardson MD at 3:01 EST , Discharge Plan Triage Chief Complaint: Abd Pain ED Provider: Billy Galvin Dx/Rx/DC Orders Clinical Impression: Abdominal pain, acute, left lower quadrant, Diverticulosis Instructions: Diverticulosis and Diverticulitis Prescriptions: New amoxicillin-pot clavulanate 875-125 mg tablet 875 mg PO Q12H Qty: 20 0RF No Action lisinopril 5 mg Tablet 10 mg PO DAILY atorvastatin 20 mg tablet 40 mg PO DAILY Patient Comments: take 1 tablet by mouth once daily for cholesterol albuterol sulfate 90 mcg/actuation HFA aerosol inhaler 2 puff INHALATION Q4H PRN (Reason: shortness of breath or wheezing) Patient Comments: inhale 2 puffs by mouth and INTO THE LUNGS every 4 hours if neede... (REFER TO PRESCRIPTION NOTES). fenofibrate 40 mg tablet 40 mg PO DAILY desvenlafaxine succinate [Pristiq] 50 mg tablet extended release 24 hr 50 mg PO DAILY amitriptyline 10 mg tablet 20 mg PO DAILY metformin 500 mg tablet 500 mg PO DAILY Primary Care Provider: Ivan Saez Referrals: Ivan Saez MD [Primary Care Provider] - 3-5 Days if not improving Print Language: Solomon Islander Disposition Disposition: Home, Self Care
[2024-02-10] MEDS: Ketorolac 30 MG/ML Syringe IV (00:58)
[2024-02-10 01:06] LABS: Absolute Lymphocyte Count 3.42 X10^3/uL (0.83-4.51); Basophil# 0.03 X10^3/uL; Basophil% 0.4 % (0-1); Eosinophil# 0.23 X10^3/uL; Eosinophils% 2.8 % (0-5); Hematocrit 39.9 % (40-54); Hemoglobin 14.2 g/dL (13.0-16.5); Lymphocyte # 3.42 X10^3/ul (0.83-4.51); Lymphocyte % 41.5 % (19-41); Mean Corp Hgb Conc 35.6 g/dL (32-36); Mean Corpuscular Hgb 28.9 pg (27.0-32.0); Mean Corpuscular Volume 81.3 fL (80-94); Monocyte# 0.55 X10^3/uL; Monocyte% 6.7 % (0-10); NRBC Flagged by Analyzer 0 % (0-5); Neutrophil % 48.4 % (47-70); Platelet Count 284 K/mm3 (150-450); RBC Distribution Width CV 12.8 % (11.6-14.6); RBC Distribution Width SD 37.7 fl (35.1-43.9); Red Blood Count 4.91 M/mm3 (4.6-6.2); White Blood Count 8.3 K/mm3 (4.4-11.0)
[2024-02-10 01:11] LABS: Bacteria 0 SEEN /hpf (None Seen); Mucous, Urine 0 SEEN /hpf (<or=2+); Red Blood Cells-Urine 0 SEEN /hpf (0-5); Squamous Epithelial Cells - UA 0 SEEN /hpf (0-5); White Blood Cells 0 SEEN /hpf (0-5)
[2024-02-10 01:15] LABS: Glucose, Dipstick Normal (Normal); Ketone-Dipstick Negative (Negative); Leukocyte Esterase-Dipstick Negative /ul (Negative); Nitrite-Dipstick Negative (Negative); Occult Blood-Urine Negative /ul (Negative); Protein-Dipstick Negative (Negative); Urine Bilirubin Dipstick Negative (Negative); Urine Urobilinogen Normal (Normal)
[2024-02-10 01:24] LABS: Color, Urine Yellow (Yellow); Urine Clarity Clear (Clear)
[2024-02-10 01:47] LABS: Anion Gap 7 (5-15); BUN 24 mg/dL (7-18); BUN/Creat Ratio 23.5 RATIO (10-20); Calcium,Total 7.8 mg/dL (8.5-10.1); Chloride 105 mmol/L (98-107); Creatinine, Serum 1.02 mg/dL (0.70-1.30); EST Glomerular Filtration Rate 86 mL/min (>60); Est Glom Filt Rate - Afr Amer 104 mL/min (>60); Estimated Creatinine Clearance 115.96 ml/min; Glucose 152 mg/dL (74-106); Potassium 3.7 mmol/L (3.5-5.1); Sodium Level 135 mmol/L (136-145)
[2024-02-10 02:38] VITALS: BP 118/76; PULSE 74; RESP 18; O2SAT 99
[2024-02-10 03:26] VITALS: BP 107/63; PULSE 68; RESP 16; TEMP 36.5; O2SAT 94
== END 2024-02-10 03:29 | disposition home or self-care (01) ==
PROVIDERS: Emergency Provider Emergency Medicine; PCP Family Medicine; Visit Provider Emergency Medicine
DX: K57.30 Diverticulosis of large intestine without perforation or abscess without bleeding (principal); E11.9 Type 2 diabetes mellitus without complications; I10 Essential (primary) hypertension; Z79.51 Long term (current) use of inhaled steroids; Z79.899 Other long term (current) drug therapy; Z79.84 Long term (current) use of oral hypoglycemic drugs
CPT/HCPCS: 74177; 80048; 81001; 85025; 96374; 96376; 99283; Q9967; A4216

== ENCOUNTER 2024-02-13 14:14 | Emergency (ER) | payer OTHER, SELFPAY ==
[2024-02-13 14:15] VITALS: BP 141/104; PULSE 102; RESP 16; TEMP 36.3; O2SAT 95
[2024-02-13 16:15] VITALS: BP 122/68; PULSE 78; RESP 18; O2SAT 99
[2024-02-13 16:16] LABS: Absolute Lymphocyte Count 2.88 X10^3/uL (0.83-4.51); Absolute Neutrophil Count 4.8 X10^3/uL (2.0-7.7); Basophil# 0.04 X10^3/uL; Basophil% 0.5 % (0-1); Eosinophil# 0.25 X10^3/uL; Eosinophils% 2.9 % (0-5); Hematocrit 41.5 % (40-54); Hemoglobin 15.1 g/dL (13.0-16.5); Lymphocyte # 2.88 X10^3/ul (0.83-4.51); Lymphocyte % 33.6 % (19-41); Mean Corp Hgb Conc 36.4 g/dL (32-36); Mean Corpuscular Hgb 29.5 pg (27.0-32.0); Mean Corpuscular Volume 81.1 fL (80-94); Monocyte# 0.56 X10^3/uL; Monocyte% 6.5 % (0-10); NRBC Flagged by Analyzer 0 % (0-5); Neutrophil # 4.82 X10^3/uL (2.7-7.7); Neutrophil % 56.2 % (47-70); Platelet Count 329 K/mm3 (150-450); RBC Distribution Width CV 12.9 % (11.6-14.6); RBC Distribution Width SD 37.4 fl (35.1-43.9); Red Blood Count 5.12 M/mm3 (4.6-6.2); White Blood Count 8.6 K/mm3 (4.4-11.0)
--- NOTE | 2024-02-13 16:33 | EDS_ITS ---
HPI History of Present Illness Chief Complaint: Abd Pain Detail of Chief Complaint: Patient presents with left lower quadrant abdominal pain. Informant: patient and spouse/S.O. Onset/Context/Timing Onset: Days (Pain started Saturday morning February 09. Pain awoke him from sleep) Context: Sudden Onset Timing: Continuous Quality: Pain Location: Left lower quadrant p Current Severity: Mild Maximum Severity: Moderate Worsened by: Walking, pushing on his abdomen Relieved by: Nothing Associated Symptoms Associated Symptoms: No urinary symptoms. Change in bowels, however. Narrative Narrative: Patient is a 38-year-old male. He was seen on February 09. He had laboratory tests and imaging done. Imaging revealed diverticulosis without diverticulitis. He was told if he had no improvement 24 hours to start antibiotics that were prescribed. He was prescribed Augmentin. He states his had problems with his bowels even prior to the onset of pain. He does do manual labor. He cannot recall any specific direct or indirect trauma. Does not do a lot of lifting twisting pulling etc. He denies dysuria, frequency, urgency or hematuria. There is no remote history of renal ureterolithiasis. He denies fever, chills night sweats. Prior similar symptoms: Yes Recent Illness/Hospitalization: Yes [facility] Medical History DM type 2 (diabetes mellitus, type 2) Hypertension Hypertriglyceridemia Home Medications ?Medication ?Instructions ?Recorded ?Last Taken ?Type lisinopril 5 mg tablet 10 mg PO DAILY 05/28/21 Unknown History albuterol sulfate 90 mcg/actuation 2 puff inhalation Q4H PRN 05/20/23 Unknown History aerosol inhaler shortness of breath or wheezing atorvastatin 20 mg tablet 40 mg PO DAILY 05/20/23 Unknown History amitriptyline 10 mg tablet 20 mg PO DAILY 02/10/24 Unknown History amoxicillin 875 mg-potassium 875 mg PO Q12H #20 TABLETS 02/10/24 Unknown Rx clavulanate 125 mg tablet desvenlafaxine succinate 50 mg 50 mg PO DAILY 02/10/24 Unknown History tablet,extended release 24 hr (Pristiq) fenofibrate 40 mg tablet 40 mg PO DAILY 02/10/24 Unknown History metformin 500 mg tablet 500 mg PO DAILY 02/10/24 Unknown History Allergy/AdvReac Type Severity Reaction Status Date / Time acetaminophen (From Vicodin) AdvReac Nausea Verified 02/13/24 14:19 hydrocodone bitartrate (From AdvReac Nausea Verified 02/13/24 14:19 Vicodin) Family History Other Diabetes Mixed hyperlipidemia Social History adopted: No household members: spouse and children number of children: 3 current occupational status: employed sexually active: Yes Smoking Status: Never smoker Smokeless tobacco user: other ROS ROS ED Constitutional Constitutional ED: Denies chills, fever(s), subjective, sweats or weight loss Cardiovascular Cardiovascular: Denies chest pain or palpitations Respiratory/Chest Respiratory/Chest: Denies cough, dyspnea or dyspnea on exertion Gastrointestinal Gastrointestinal: Reports abdominal pain and other Details: HPI narrative for further details ; Denies constipation, diarrhea, melena, nausea or vomiting Genitourinary Genitourinary ED: Denies dysuria, hematuria or urinary frequency Musculoskeletal Musculoskeletal: Denies back pain Integumentary Denies rash Hematologic/Lymphatic Hematologic/Lymphatic: Reports systems reviewed and no addt'l complaints, except as documented EXAM Physical Exam Const Vital Signs: 02/13/24 14:15 02/13/24 16:15 Temperature 97.4 F L Temperature Source Temporal Pulse Rate 102 H 78 Respiratory Rate 16 18 Blood Pressure 141/104 H 122/68 H Blood Pressure Mean 116 86 Pulse Ox 95 99 Oxygen Delivery Method Room Air Room Air Positive well nourished and well developed General Appearance ED: well developed and NAD; Negative for cyanotic, diaphoretic or pallor HEENT Reports moist mucous membranes HEENT Narrative: Head is atraumatic, cephalic. Ears normal. Nares patent. Eyes PERRL and EOMs intact bilaterally General Eye ED: Negative for pale conjunctiva or scleral icterus Neck no JVD Resp normal respiratory effort and clear to auscultation bilaterally Cardio regular rate, regular rhythm, S1 normal heart sound, S2 normal heart sound and no murmurs GI normal to inspection, nondistended, normoactive bowel sounds, non-distended and no masses; Negative for non-tender or hepatosplenomegaly GI Narrative: There is no guarding or peritoneal findings. Twisting to the right and left causes increased pain especially twisting to the right. Flexion extension causes pain as well. When I had the patient do a sit up he states he had pain. In my opinion this is musculoskeletal pain and not intra-abdominal. Since he reports change in his bowels and was started on antibiotics will obtain CBC to see if there is any difference and would mandate reimaging. Back/Spine no CVA tenderness Extremity normal to inspection Neuro oriented x3 and CN's II-XII intact bilaterally Sensorium / Orientation: alert Psych mental status grossly normal Skin no rashes or lesions noted, no wounds and skin turgor normal General Skin Exam: elasticity normal; Negative for jaundice or pallor MDM MDM MDM Narrative Medical decision making narrative: When I had the patient do a sit up he states he had pain. In my opinion this is musculoskeletal pain and not intra-abdominal. Since he reports change in his bowels and was started on antibiotics will obtain CBC to see if there is any difference and would mandate reimaging. I believe this to be muscular pain. Because he was diagnosed diverticulitis start antibiotics will obtain blood work. Lab Data Attestation: I reviewed the patient's lab results. Lab results narrative: CBC is normal. Labs: Laboratory Results - last 24 hr 02/13/24 16:05 WBC 8.6 RBC 5.12 Hgb 15.1 Hct 41.5 MCV 81.1 MCH 29.5 MCHC 36.4 H RDW Std Deviation 37.4 RDW Coeff of [place] 12.9 Plt Count 329 MPV 10.0 Immature Gran % (Auto) 0.300 Neut % (Auto) 56.2 Lymph % (Auto) 33.6 [place] % (Auto) 6.5 Eos % (Auto) 2.9 Baso % (Auto) 0.5 Absolute Neuts (auto) 4.8 Absolute Lymphs (auto) 2.88 Nucleated RBC % 0 Sodium 138 Potassium 3.8 Chloride 107 Carbon Dioxide 26.0 Anion Gap 5 BUN 19 H Creatinine 1.23 Est GFR (MDRD) Af Amer 84 Est GFR (MDRD) Non-Af 69 BUN/Creatinine Ratio 15.4 Glucose 170 H Calcium 7.9 L Blood sugars elevated 170. Review of prior records indicates patient had elevated blood sugar on past results. Patient does have type 2 diabetes on metformin. Discharge Plan Triage Chief Complaint: Abd Pain ED Provider: GtClement Dx/Rx/DC Orders Clinical Impression: Strain of abdominal wall, Hypertriglyceridemia, Hypertension, Diverticulosis, Type 2 diabetes mellitus with hyperglycemia Instructions: ED Muscle Strain, Abdomen Prescriptions: No Action lisinopril 5 mg Tablet 10 mg PO DAILY atorvastatin 20 mg tablet 40 mg PO DAILY Patient Comments: take 1 tablet by mouth once daily for cholesterol albuterol sulfate 90 mcg/actuation HFA aerosol inhaler 2 puff INHALATION Q4H PRN (Reason: shortness of breath or wheezing) Patient Comments: inhale 2 puffs by mouth and INTO THE LUNGS every 4 hours if neede... (REFER TO PRESCRIPTION NOTES). fenofibrate 40 mg tablet 40 mg PO DAILY desvenlafaxine succinate [Pristiq] 50 mg tablet extended release 24 hr 50 mg PO DAILY amitriptyline 10 mg tablet 20 mg PO DAILY metformin 500 mg tablet 500 mg PO DAILY amoxicillin-pot clavulanate 875-125 mg tablet 875 mg PO Q12H Qty: 20 0RF Primary Care Provider: Ivan Saez Referrals: Ivan Saez MD [Primary Care Provider] - 1 Week if not improving Print Language: Vietnamese Disposition Disposition: Home, Self Care
[2024-02-13 16:38] LABS: Anion Gap 5 (5-15); BUN 19 mg/dL (7-18); BUN/Creat Ratio 15.4 RATIO (10-20); Calcium,Total 7.9 mg/dL (8.5-10.1); Chloride 107 mmol/L (98-107); Creatinine, Serum 1.23 mg/dL (0.70-1.30); EST Glomerular Filtration Rate 69 mL/min (>60); Est Glom Filt Rate - Afr Amer 84 mL/min (>60); Glucose 170 mg/dL (74-106); Potassium 3.8 mmol/L (3.5-5.1); Sodium Level 138 mmol/L (136-145)
== END 2024-02-13 17:01 | disposition home or self-care (01) ==
PROVIDERS: Emergency Provider Emergency Medicine; PCP Family Medicine; Referring Provider Emergency Medicine; Visit Provider Emergency Medicine
DX: S39.011A Strain of muscle, fascia and tendon of abdomen, initial encounter (principal); E11.65 Type 2 diabetes mellitus with hyperglycemia; I10 Essential (primary) hypertension; Z79.51 Long term (current) use of inhaled steroids; Z79.84 Long term (current) use of oral hypoglycemic drugs; Z79.899 Other long term (current) drug therapy; X58.XXXA Exposure to other specified factors, initial encounter
CPT/HCPCS: 80048; 85025; 99282